=== PATIENT | male | born 1935 | race Caucasian/White ===

== ENCOUNTER → 2016-12-04 | Day surgery (SDC) | payer OTHER, MEDICARE ==
[2016-12-03 14:44] VITALS: Ht 180.3 cm; Wt 84.1 kg
[~2016-12-04] VITALS: Ht 180.3 cm; Wt 84.1 kg
[~2016-12-04] MED LIST: 500ML BSS 0.3ML EPI 1:1000PF IRRIG ONE; ACETAMINOPHEN 325 MG TAB PO PRN; AMVISC PLUS 0.8ML SYRINGE INT OCU ONE; ASPCH81X PO; ATROPINE SULFATE 0.1 MG/ML 5ML SYR IV PRN; BROM0.07 OPR; BSS FLUSH ONE; CLON0.5T20 PO; COEN1CAP7 PO; COL RITE PO; ENTA200T PO; EpHEDrine SULFATE INJ 50 MG/ML AMP IV PRN; EpINEphrine INJ 1MG/ML AMP 1 MG/ML AMP ONE; GABA1CAP PO; GABA400C PO; GATI1SOL2 OPR; LACTATED RINGER'S 1000ML 500 ML IV SCH; LIDOCAINE 3.5% OPH GEL PER APPLICATION CHARGE ONE; LIDOCAINE HCL 1% MPF 2 ML VIAL ONE; MELA1TAB22 PO; MELA3TAB7 PO; MIDAZOLAM HCL 1 MG/ML 2ML VIAL ONE; MULT-190 PO; OCUCOAT 1 ML SOLN IO ONE; POVIDONE-IODINE OP SOLN 30 ML BTL ONE; PRDFOPSD OPR; PROPARACAINE 0.5% OP SOLN PER DROP CHARGE OPR SCH; RIVA4.5C4 PO; TOBRAMYCIN/DEXAMETHASONE OPH OINT PER APPLN CHARGE ONE; [UNRECOGNIZED DRUG - CODE] PO
[2016-12-04] MEDS: PHENYLEPHRINE HCL 2.5% OP SOLN PER DROP CHARGE OPR SCH ×2 (09:40→09:45)
[2016-12-04] MEDS: TROPICAMIDE 1% OP SOLN PER DROP CHARGE OPR SCH ×2 (09:41→09:46)
[2016-12-04] MEDS: CYCLOPENTOLATE HCL 1% OP SOLN PER DROP CHARGE OPR SCH ×2 (09:42→09:47)
[2016-12-04] MEDS: KETOROLAC 0.5% OP SOLN PER DROP CHARGE OPR SCH ×2 (09:43→09:48)
[2016-12-04] MEDS: GATIFLOXACIN OP SOLN PER DROP CHARGE OPR SCH ×2 (09:44→09:50)
--- NOTE | 2016-12-04 10:03 | History & Physical Bridge - [place] ---
H&P Re-Evaluation Bridge Note: I have examined the patient, reviewed the History & Physical and in the interval since the performance of the History & Physical I have noted the following changes of clinical significance: Diagnosis: Right Cataract Procedure: Right Cataract Removal with Lens Implant No changes noted
[2016-12-04 10:44] VITALS: TEMP 36.5
--- NOTE | 2016-12-04 10:44 | Discharge Instructions-SurgCtr ---
Discharge Instructions Visit Reason for Visit: Cataract Right Eye Discharge Discharge Diagnosis / Problem: cataract Discharge Goals Goal(s): Improve function Activity Recommendations Activity Limitations: per Instructions/Follow-up section Anesthesia . Post Anesthesia Instructions: If you have had General Anesthesia or IV Sedation: * Do not drive today. * Resume driving when surgeon permits. * Do not make important decisions or sign legal documents today. * Call surgeon for: 1. Temperature elevations greater than 101 degrees F. 2. Uncontrollable pain. 3. Excessive bleeding. 4. Persistent nausea and vomiting. 5. Medication intolerance (nausea, vomiting or rash). * For nausea and vomiting use only clear liquids such as: tea, soda, bouillon until nausea subsides, then gradually increase diet as tolerated. * If you have any concerns or questions, call your surgeon's office. If physician is unavailable and it is an emergency, call 911 or go to the nearest emergency room. . Instructions / Follow-Up Instructions / Follow-Up ACTIVITY RECOMMENDATIONS: * No strenuous lifting, jogging or running for 4 days * No swimming or yard work for 1 week. * Limited bending is permitted, such as putting on shoes. RETURN TO SCHOOL/WORK: No work until seen by physician in office. MEDICATIONS: Resume previous medications unless instructed otherwise by your surgeon. This includes eye drops for glaucoma. Zymaxid/Gatifloxacin (krause cap) - one drop every 2 hours until bedtime Nevanac/Ilevro/Prolensa/Ketorolac (wallace cap) - one drop every 4 hours until bedtime Prednisolone (white/pink cap, SHAKE WELL) - one drop every 2 hours until bedtime Starting tomorrow - all 3 drops every 4 hours until seen in the office Optive drops - as needed for discomfort SPECIAL CARE INSTRUCTIONS: * Wear eyeshield when sleeping, for four nights. * You may wear your own glasses or sunglasses while awake. * You may read or watch TV * You may shower and wash your face, but be gentle around the eye and pat dry. * Blurry vision and mild irritation are normal. * Call office if pain is more severe or vision becomes dark at . FOLLOW UP VISIT: Follow-up with Dr Parry tomorrow. Diet Recommendations Home Diet: resume previous diet Procedures Procedures Performed: Right Cataract Phacoemulsification With Intraocular Lens Implant Pending Studies Studies pending at discharge: no Medical Emergencies . Who to Call and When: Medical Emergencies: If at any time you feel your situation is an emergency, please call 911 immediately. . Non-Emergent Contact Non-Emergency issues call your: [employer] . . "Provider Documentation" section prepared by Amor Parry.
--- NOTE | 2016-12-04 10:44 | [facility] Operative Report ---
Operative Report 1. PREOPERATIVE DIAGNOSIS: Cataract of the right eye. 2. POSTOPERATIVE DIAGNOSIS: Same. 3. PROCEDURE: Phacoemulsification with intraocular lens implantation of the right eye. SURGEON: Dr. Amor Parry. ANESTHESIA: Topical Lidocaine gel, 1% Non- Preserved intracameral Lidocaine, and monitored intravenous sedation. INDICATIONS FOR THE PROCEDURE: The patient is a 80 - year-old male with a history of cataract of the right eye causing significant visual impairment. The details of the proposed procedure were explained to the patient who asked appropriate questions and following discussion of all risks, benefits and alternatives agreed to have the procedure done. 4. OPERATION AND FINDINGS: DESCRIPTION OF PROCEDURE: After informed consent was obtained, the patient was brought to the Operating Room at the [facility]. The patient was placed in a supine position and then the right eye was prepped and draped in the usual sterile fashion for intraocular surgery. A drop of topical Lidocaine gel was placed in the operative eye. A wire lid speculum was then placed in the fornices. A corneal paracentesis was then created temporally. The Non-Preserved Lidocaine was then instilled into the anterior chamber. The anterior chamber was then pressurized with viscoelastic. A 2.0 mm clear corneal incision was then created temporally. A cystotome was inserted into the anterior chamber and used to create a tear in the anterior lens capsule. This capsular tear was then used to create a small flap and the flap was dragged in a counterclockwise direction in order to create a continuous curvilinear capsulorrhexis. Hydrodissection was accomplished with balanced salt solution. Phacoemulsification of the lens nucleus was then performed in a standard [id number] technique. The phaco time was 32 seconds with an average power of 14 %. The remaining cortical material was removed using irrigation aspiration. The capsular bag was then filled with viscoelastic. A [employer] Lomb MI60L +23.0 diopters lens was then loaded into the injector and injected into the capsular bag. The remaining viscoelastic was removed with the irrigation aspiration handpiece. The wound was hydrated and then checked and found to be watertight. The intraocular pressure was checked and found to be adequate. The wire lid speculum was removed and the patient's face was cleaned and dried. TobraDex ointment was placed in the inferior fornix. The patient was discharged to the Recovery Room having tolerated the procedure well. There were no complications. The patient will be seen tomorrow in the office for follow-up. I attest to the content of the Intraoperative Record and any orders documented therein. Any exceptions are noted below.
[2016-12-04 11:21] VITALS: BP 122/73; PULSE 84; O2SAT 98
--- NOTE | 2016-12-04 11:32 | Anesthesia Progress Nt - [facility] ---
Anesthesia Post Op Note Date & Time Dec 04, 2016 at 11:32 Vital Signs Pain Intensity: 0 Vital Signs Past 12 Hours Date Time Temp Pulse Resp B/P Pulse Ox O2 Delivery O2 Flow Rate FiO2 12/04/16 11:21 84 16 122/73 98 Room Air 12/04/16 10:44 36.5 69 16 134/78 99 Room Air 12/04/16 09:33 36.4 80 16 130/84 97 Room Air Notes Mental Status: alert / awake / arousable, participated in evaluation Pt Amnestic to Procedure: Yes Nausea / Vomiting: adequately controlled Pain: adequately controlled Airway Patency, RR, SpO2: stable & adequate BP & HR: stable & adequate Hydration State: stable & adequate Anesthetic Complications: no major complications apparent
== END | disposition home or self-care (01) ==
LOC: X.SURG 09:19
PROVIDERS: ATTEND Ophthalmology
DX: H26.9 Unspecified cataract (principal); G20 Parkinson's disease; H54.7 Unspecified visual loss; N40.1 Benign prostatic hyperplasia with lower urinary tract symptoms; R41.841 Cognitive communication deficit; G25.81 Restless legs syndrome; M15.9 Polyosteoarthritis, unspecified; E78.2 Mixed hyperlipidemia; M48.06 Spinal stenosis, lumbar region

== ENCOUNTER 2016-12-17 12:36 | Observation (INO) | payer OTHER, MEDICARE ==
[~2016-12-17] VITALS: Ht 180.3 cm; Wt 84.1 kg
[~2016-12-17 12:36] MED LIST changes: -500ML BSS 0.3ML EPI 1:1000PF IRRIG ONE; -ACETAMINOPHEN 325 MG TAB PO PRN; -AMVISC PLUS 0.8ML SYRINGE INT OCU ONE; -ATROPINE SULFATE 0.1 MG/ML 5ML SYR IV PRN; -BROM0.07 OPR; -BSS FLUSH ONE; -EpHEDrine SULFATE INJ 50 MG/ML AMP IV PRN; -EpINEphrine INJ 1MG/ML AMP 1 MG/ML AMP ONE; -GATI1SOL2 OPR; -LACTATED RINGER'S 1000ML 500 ML IV SCH; -LIDOCAINE 3.5% OPH GEL PER APPLICATION CHARGE ONE; -LIDOCAINE HCL 1% MPF 2 ML VIAL ONE; -MELA1TAB22 PO; -MIDAZOLAM HCL 1 MG/ML 2ML VIAL ONE; -OCUCOAT 1 ML SOLN IO ONE; -POVIDONE-IODINE OP SOLN 30 ML BTL ONE; -PRDFOPSD OPR; -PROPARACAINE 0.5% OP SOLN PER DROP CHARGE OPR SCH; -TOBRAMYCIN/DEXAMETHASONE OPH OINT PER APPLN CHARGE ONE
[2016-12-17] MEDS ORDERED: PRDFOPSD OPR (13:58)
[2016-12-17] MEDS ORDERED: BROM0.07 OPR (13:58)
[2016-12-17] MEDS ORDERED: GATI1SOL2 OPR (13:58)
[2016-12-17] MEDS ORDERED: MELA1TAB22 PO (13:58)
[2016-12-17] MEDS ORDERED: SODIUM CHLORIDE 0.9% 500ML 500 ML IV STA (14:04)
--- NOTE | 2016-12-17 14:15 | EMERGENCY ROOM VISIT NOTE ---
History Report prepared by Kyle: Lay Mendez Under the Supervision of: Dr. Emmanuel Sims M.D. First contact with patient: 13:28 Chief Complaint: OTHER COMPLAINT Stated Complaint: MUSCLE FREEZE History of Present Illness The patient is a 80 year old male who presents to the Emergency Room with complaints of worsening weakness over the past 2 days. The patient has a history of Parkinson's Disease. He is on Carbidopa and Levodopa. states that typically the patient is able to ambulate well with a walker and is able to drive. Two days ago the patient fell while he was going to the bathroom in the middle of the night. He denies any injury from the fall. Yesterday the patient fell again and denies any injury from that fall as well. The patient states that his muscles have been locking up more over the past 2 days. Both he and his describe his symptoms as "muscle freezing." Today the patient was unable to use is walker and had to use a wheelchair. reports that he is slower to respond and his speech is slower today. The patient denies hitting his head or LOC, recent illness, and shortness of breath. He had a routine visit with his PCP this morning who advised the patient to come to the ED for further evaluation. Source of History: patient, spouse/significant other Onset: 2 days ago Position: other (global) Quality: other (weakness) Timing: worsening Modifying Factors (Worsening): other (walking) Associated Symptoms: No LOC, No SOB Review of Systems See HPI for pertinent positives & negatives. A total of 10 systems reviewed and were otherwise negative. Past Medical & Surgical Medical Problems: (1) Back pain (2) Constipation (3) Hyperlipidemia (4) Lumbago (5) Neurologic gait dysfunction (6) Parkinson disease (7) Parkinson's disease Family History Non-pertinent due to advanced age. Social History Smoking Status: Never Smoker Marital Status: Housing Status: lives with significant other Occupation Status: employed Current/Historical Medications Scheduled Aspirin (Aspirin Chewable), 81 MG PO QPM Bromfenac Sodium (Ophth) (Prolensa), 1 DROP OPR DAILY Carbidopa (Lodosyn), 1 TAB PO QID Clonazepam (Clonazepam Odt), 3 TAB PO QPM Coenzyme Q10 (Ubidecarenone) (Coq10), 1 CAP PO QPM Entacapone (Comtan), 200 MG PO QID Gabapentin (Neurontin), 100 MG PO QPM Gabapentin (Neurontin), 400 MG PO QPM Gatifloxacin (Ophth) (Gatifloxacin), 1 DROP OPR BID Melatonin-Pyridoxine (Melatonin), 1 TAB PO DAILY Ocuvite Preservision (Ocuvite Preservision), 1 TAB PO QPM Prednisolone Acetate (Prednisolone Acetate), 1 DROP OPR QID Rivastigmine Tartrate (Rivastigmine Tartrate), 1 CAP PO BID [Col'rite], 3 TAB PO QPM Allergies Coded Allergies: No Known Allergies (Verified , 12/17/16) Physical Exam Vital Signs Date Time Temp Pulse Resp B/P Pulse Ox O2 Delivery O2 Flow Rate FiO2 12/17/16 17:25 77 18 156/89 97 Room Air 12/17/16 15:03 73 16 116/68 94 Room Air 12/17/16 14:12 81 12/17/16 14:07 83 20 128/84 95 Room Air 12/17/16 14:05 95 Room Air 12/17/16 12:43 36.4 84 18 149/73 96 Room Air Physical Exam GENERAL: Patient is a healthy-appearing well-nourished 80 year old female. HEAD: Normocephalic atraumatic EYES: Ocular movements intact pupils equal and react to light OROPHARYNX mucous membranes are moist no exudates present no erythema or edema present NECK: Supple no nuchal rigidity CHEST: Good equal expansion LUNGS: Clear and equal to auscultation CARDIAC: Normal S1 and S2 ABDOMEN: Soft nontender no guarding BACK: No CVA tenderness EXTREMITIES: No pain upon palpation normal muscle strength in all groups no clubbing cyanosis or edema NEURO: Patient is following commands is answering questions appropriately. Alert and oriented x3 Cranial Nerves 2-12 grossly intact. Slow to respond and slow to initiate movement. Medical Decision & Procedures ER Provider Diagnostic Interpretation: Radiology results as stated below per my review and radiologist interpretation: CT HEAD WITHOUT CONTRAST (CT) CLINICAL HISTORY: Stroke COMPARISON STUDY: MRI the brain dated 01/20/2016, CT scan the head dated 03/18/2009 TECHNIQUE: Axial CT of the brain is performed from the vertex to the skull base. IV contrast was not administered for this examination. CT DOSE: 926.94 mGycm FINDINGS: No intra or extra-axial mass lesions are visualized. There is a hyperdense focus in the region the right sylvian fissure. Given the history of stroke this could represent a focal thrombus. An MRI is recommended in follow-up. There is no CT evidence of midline shift. There is no evidence of parenchymal hemorrhage. There are patchy white matter hypodensities likely on a small vessel basis. There is no evidence of pathologic ventricular dilatation. There is no evidence of acute sinusitis IMPRESSION: Small focus of increased density in the right sylvian fissure. Given the clinical history this could reflect a small focal thrombus. An MRI the brain is recommended in follow-up. Electronically signed by: Stephen Akhtar M.D. 12/17/2016 3:39 PM Dictated Date/Time: 12/17/2016 3:36 PM CHEST ONE VIEW PORTABLE CLINICAL HISTORY: Stroke. COMPARISON STUDY: Chest radiograph June 29, 2016. FINDINGS: Right shoulder arthroplasty is incidentally noted. There is no pneumothorax or pleural effusion. There is no consolidation. There may be minimal left basilar opacity. Cardiac size is at upper limits of normal. There is no evidence of pulmonary edema. IMPRESSION: No acute cardiopulmonary findings. Electronically signed by: Kel Blanchard M.D. 12/17/2016 2:30 PM Dictated Date/Time: 12/17/2016 2:29 PM Laboratory Results 12/17/16 14:10 Red Blood Count 4.88, Mean Corpuscular Volume 88.1, Mean Corpuscular Hemoglobin 30.7, Mean Corpuscular Hemoglobin Concent 34.9, Mean Platelet Volume 9.9, Neutrophils (%) (Auto) 71.4, Lymphocytes (%) (Auto) 17.5, Monocytes (%) (Auto) 7.5, Eosinophils (%) (Auto) 3.1, Basophils (%) (Auto) 0.5, Neutrophils # (Auto) 4.57, Lymphocytes # (Auto) 1.12, Monocytes # (Auto) 0.48, Eosinophils # (Auto) 0.20, Basophils # (Auto) 0.03 Test 12/17/16 14:02 12/17/16 14:10 12/17/16 16:43 12/17/16 17:18 Bedside Glucose 104 mg/dl (70-99) White Blood Count 6.40 K/uL (4.8-10.8) Red Blood Count 4.88 M/uL (4.7-6.1) Hemoglobin 15.0 g/dL (14.0-18.0) Hematocrit 43.0 % (42-52) Mean Corpuscular Volume 88.1 fL (80-100) Mean Corpuscular Hemoglobin 30.7 pg (25-34) Mean Corpuscular Hemoglobin Concent 34.9 g/dl (32-36) Platelet Count 206 K/uL (130-400) Mean Platelet Volume 9.9 fL (7.4-10.4) Neutrophils (%) (Auto) 71.4 % Lymphocytes (%) (Auto) 17.5 % Monocytes (%) (Auto) 7.5 % Eosinophils (%) (Auto) 3.1 % Basophils (%) (Auto) 0.5 % Neutrophils # (Auto) 4.57 K/uL (1.4-6.5) Lymphocytes # (Auto) 1.12 K/uL (1.2-3.4) Monocytes # (Auto) 0.48 K/uL (0.11-0.59) Eosinophils # (Auto) 0.20 K/uL (0-0.5) Basophils # (Auto) 0.03 K/uL (0-0.2) RDW Standard Deviation 42.0 fL (36.4-46.3) RDW Coefficient of Variation 13.0 % (11.5-14.5) Immature Granulocyte % (Auto) 0.0 % Immature Granulocyte # (Auto) 0.00 K/uL (0.00-0.02) Bedside Prothrombin Time INR 1.0 (0.9-1.1) Est Creatinine Clear Calc Drug Dose 69.3 ml/min Total Creatine Kinase 114 U/L (39-308) Creatine Kinase MB 3.3 ng/ml (0.5-3.6) Creatine Kinase MB Ratio 2.9 (0-3.0) Troponin I < 0.015 ng/ml (0-0.045) Labs reviewed by ED physician. Medications Administered Medications (Trade) Dose Ordered Sig/Holli Route Start Time Stop Time Status Last Admin Dose Admin Sodium Chloride 1,000 ml @ 50 mls/hr Q20H IV 12/17/16 13:47 01/16/17 13:46 12/17/16 15:02 50 MLS/HR Sodium Chloride (Nss 500ml) 500 ml @ 999 mls/hr Q31M STAT IV 12/17/16 14:04 12/17/16 14:34 DC 12/17/16 14:33 999 MLS/HR ECG Indication: weakness Rate (beats per minute): 79 Rhythm: normal sinus Findings: no acute ischemic change, no ectopy ED Course 1328: Past medical records reviewed. The patient was evaluated in room B7. A complete history and physical examination was performed. 1347: NSS 1000 ml @ 50 mls/hr IV 1404: NSS 500 ml @ 999 mls/hr IV 1540: I spoke with Dr. Baca. We discussed the patient's results and treatment plan. The patient will be evaluated by the [facility] for further management. 1547: I reassessed the patient at this time. He is resting comfortably. I discussed the results and treatment plan with the patient and his . I answered all pertaining questions that they had. They expressed understanding and verbalized agreement. Medical Decision Differential diagnosis: Etiologies such as metabolic, infection, hypo/hyperglycemia, electrolyte abnormalities, cardiac sources, intracerebral event, toxicologic, neurologic, as well as others were entertained. His is a 80-year-old male who presents emergency Department with multiple falls since Saturday. In addition the patient has had locking episodes with his muscles. The patient does have an abnormal finding on his CAT scan of his head for he was sent for an MRI. I did discuss the case with the hospitalist services I feel the patient will be unsafe to go home. Patient and family were in agreement with the treatment plan. Consults Time Called: 1538 Consulting Physician: Dr. Baca Returned Call: [address] Baca. We discussed the patient's results and treatment plan. The patient will be evaluated by the [facility] for further management. Impression Primary Impression: Falls Additional Impression: Altered mental status Scribe Attestation The scribe's documentation has been prepared under my direction and personally reviewed by me in its entirety. I confirm that the note above accurately reflects all work, treatment, procedures, and medical decision making performed by me. Departure Information Dispostion Being Evaluated By Hospitalist Referrals Harman Gunn M.D. (PCP) Patient Instructions My [facility] Problem Qualifiers Primary Impression: Falls Encounter type: initial encounter Qualified Codes: W19.XXXA - Unspecified fall, initial encounter Additional Impression: Altered mental status Altered mental status type: unspecified Qualified Codes: R41.82 - Altered mental status, unspecified
[2016-12-17 14:32] LABS: BASO % 0.5 %; BASO ABS # 0.03 K/uL (0-0.2); COMPLETE YES; EOS % 3.1 %; LYMPH % 17.5 %; LYMPH ABS # 1.12 K/uL (1.2-3.4); MEAN CELL VOLUME 88.1 fL (80-100); MEAN CORPUSCULAR HEMOGLOBIN 30.7 pg (25-34); MEAN CORPUSCULAR HGB CONC 34.9 g/dl (32-36); MEAN PLATELET VOLUME 9.9 fL (7.4-10.4); MONO % 7.5 %; NEUT % 71.4 %; PLATELET COUNT 206 K/uL (130-400); RED BLOOD COUNT 4.88 M/uL (4.7-6.1)
--- NOTE | 2016-12-17 14:32 | DIAGNOSTIC IMAGING REPORT ---
CHEST ONE VIEW PORTABLE CLINICAL HISTORY: Stroke. COMPARISON STUDY: Chest radiograph June 29, 2016. FINDINGS: Right shoulder arthroplasty is incidentally noted. There is no pneumothorax or pleural effusion. There is no consolidation. There may be minimal left basilar opacity. Cardiac size is at upper limits of normal. There is no evidence of pulmonary edema. IMPRESSION: No acute cardiopulmonary findings. Electronically signed by: Kel Blanchard M.D. 12/17/2016 2:30 PM Dictated Date/Time: 12/17/2016 2:29 PM
[2016-12-17 14:51] LABS: BLOOD UREA NITROGEN 23 mg/dl (7-18); BUN/CREATININE RATIO 24.7 (10-20); CALCIUM 8.7 mg/dl (8.5-10.1); CARBON DIOXIDE 27 mmol/L (21-32); CHLORIDE 105 mmol/L (98-107); CREATININE 0.92 mg/dl (0.60-1.40); GLUCOSE 98 mg/dl (70-99); POTASSIUM 3.9 mmol/L (3.5-5.1); SODIUM 141 mmol/L (136-145)
[2016-12-17 14:56] LABS: CKMB/CK RATIO 2.9 (0-3.0)
[2016-12-17] MEDS: SODIUM CHLORIDE 0.9% 1000ML 1,000 ML IV SCH (15:02)
--- NOTE | 2016-12-17 15:40 | DIAGNOSTIC IMAGING REPORT ---
CT HEAD WITHOUT CONTRAST (CT) CLINICAL HISTORY: Stroke COMPARISON STUDY: MRI the brain dated 01/20/2016, CT scan the head dated 03/18/2009 TECHNIQUE: Axial CT of the brain is performed from the vertex to the skull base. IV contrast was not administered for this examination. CT DOSE: 926.94 mGycm FINDINGS: No intra or extra-axial mass lesions are visualized. There is a hyperdense focus in the region the right sylvian fissure. Given the history of stroke this could represent a focal thrombus. An MRI is recommended in follow-up. There is no CT evidence of midline shift. There is no evidence of parenchymal hemorrhage. There are patchy white matter hypodensities likely on a small vessel basis. There is no evidence of pathologic ventricular dilatation. There is no evidence of acute sinusitis IMPRESSION: Small focus of increased density in the right sylvian fissure. Given the clinical history this could reflect a small focal thrombus. An MRI the brain is recommended in follow-up. Electronically signed by: Stephen Akhtar M.D. 12/17/2016 3:39 PM Dictated Date/Time: 12/17/2016 3:36 PM
[2016-12-17] MEDS ORDERED: ONDANSETRON INJ 2 MG/ML 2 ML VIAL IV PRN (16:45)
[2016-12-17] MEDS ORDERED: ACETAMINOPHEN 325 MG TAB PO PRN (16:45)
[2016-12-17 17:25] VITALS: O2SAT 97
[2016-12-17 17:32] LABS: URINE APPEARANCE CLEAR (CLEAR); URINE BILIRUBIN NEG (NEG); URINE COLOR YELLOW; URINE NITRITE NEG (NEG); UROBILINOGEN NEG (NEG); ZZUR CULT IF INDIC CLEAN CATCH NO
[2016-12-17 17:39] VITALS: Ht 180.3 cm; Wt 84.1 kg
[2016-12-17 17:42] LABS: MANUAL MICROSCOPIC REQUIRED? NO; REVIEW REQ? NO
[2016-12-17 18:10] LABS: BENZODIAZEPINE, URINE NEG (NEG); COCAINE,URINE NEG (NEG); PHENCYCLIDINE, URINE NEG (NEG)
--- NOTE | 2016-12-17 18:34 | HISTORY & PHYSICAL EXAMINATION ---
DATE OF ADMISSION: 12/17/2016 PRIMARY CARE PHYSICIAN: Dr. Harman Gunn. CHIEF COMPLAINT: Recurrent falls. HISTORY OF PRESENT ILLNESS: Mr. Miguel is a 80-year-old gentleman with a history of Parkinson disease who presents to the Emergency Department complaining of recurrent falls over the past several days. He states that several days ago in the middle of the night, he woke up to use the bathroom. On his way back to his bedroom, he says that he fell flat on his face. He reports that his legs just gave out. They felt like they were locking up or very heavy. He reports that he had to crawl back to his bedroom. With the assistance of his was able to get back into bed. He says that the following day, he stayed home from [facility] because he was feeling very tired. Later in the day while walking to a movie, he again fell flat on his face, says that he felt as if his muscles all locked up. He said he felt generally weak and fell to the ground. He denies any recent fever, chills or malaise. He denies any cough, shortness of breath or chest pain. He denies any abdominal pain, nausea, vomiting or diarrhea. He denies any urinary frequency, dysuria or hematuria. He denies any lower extremity swelling. He denies any swollen or painful joints and he denies any new rash. His initial workup in the Emergency Department included basic labs with chemistry showing a sodium of 141, potassium 3.9, chloride 105, bicarbonate 27, BUN 23, creatinine 0.92, random glucose was 104, calcium was 8.7. He did have cardiac enzymes drawn, troponin was negative. CPK was 114, CK-MB was 3.3. His CBC showed a white blood cell count of 6400 with 71% neutrophils. His hemoglobin was 15, hematocrit 43%, platelets 206,000. His INR was within normal limits. He also had a chest x-ray which is being read by radiology as showing no acute cardiopulmonary process. A CT of the head without contrast was also performed which shows chronic small vessel ischemic changes. The radiologist however also notes the small focus of increased density in the area of the right sylvian fissure. The radiologist is noting that this could reflect a small focal thrombus and recommended an MRI of the brain. He did have an EKG as well. This shows sinus rhythm with a rate of 80 beats per minute. There is some nonspecific flattening of his T waves throughout. Otherwise, there are no obvious ST segment changes to suggest acute ischemia. At this point, the patient has been ordered an MRI of the brain which is currently pending. He is being admitted for further management and workup. ALLERGIES: None. HOME MEDICATIONS: Include: 1. Aspirin 81 mg p.o. daily. 2. Carbidopa 25 mg p.o. 4 times daily. 3. Comtan 200 mg p.o. 4 times daily. 4. Rivastigmine 4.5 mg p.o. twice daily. 5. Clonazepam 1.5 mg p.o. q.p.m. 6. Coenzyme Q10. 7. Gabapentin 500 mg p.o. at bedtime. 8. Melatonin with pyridoxine. 9. Multivitamin. 10. Col-Rite. 11. Prednisolone acetate ophthalmic drops. 12. Bromfenac ophthalmic drops. 13. Gatifloxacin ophthalmic drops. PAST MEDICAL HISTORY: Includes: 1. Parkinson disease. 2. Dyslipidemia. 3. 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 4. Status post right eye cataract removal on 12/04/2016. FAMILY HISTORY: Positive for "a weak heart" in one of his sisters in her 80s. He mentions that 2 sisters and 1 brother, all have balance problems. No other known history of neurodegenerative disease, stroke, or cardiovascular disease. SOCIAL HISTORY: The patient lives at home with his in a [place]. He is a retired psychologist. He is a lifelong nonsmoker and does not abuse alcohol or illicit drugs. REVIEW OF SYSTEMS: A 14-system review was conducted and was found to be completely negative except as otherwise indicated above in the history of present illness. PHYSICAL EXAMINATION: VITAL SIGNS: Currently show temperature is 36.4, pulse 73, respiratory rate 16, oxygen saturation 94% on room air. Blood pressure is 116/68. GENERAL: The patient is awake and alert. He is in no acute distress. HEENT: The sclerae are nonicteric. The mucous membranes are tacky. NECK: The trachea is midline. There is no JVD. RESPIRATORY: Breath sounds are mildly diminished in the bases but above that are clear. He is not in any respiratory distress. CARDIOVASCULAR: S1 and S2 are heard with a regular rate and rhythm. There is no murmur, rub, or gallop. ABDOMEN: Soft, nontender, nondistended. Bowel sounds are present. EXTREMITIES: Warm and well perfused without edema. SKIN: Warm and dry. There is no cyanosis or rash. MUSCULOSKELETAL: There is no chest wall tenderness. There is no joint effusion or joint tenderness. NEUROLOGIC: The patient is awake and alert. Cranial nerves are grossly intact. His speech is somewhat slow but is clear and fluent. There is 5/5 muscle strength in all groups in the bilateral upper and lower extremities. Muscle tone and bulk appear to be normal. PSYCH: The patient is calm and cooperative. DIAGNOSTIC INVESTIGATIONS: Labs, imaging and EKG were reviewed as outlined above in the history of present illness. ASSESSMENT AND PLAN: 1. Gait dysfunction. This patient is presenting with recurrent falls, likely related to Parkinson disease. I will ask neurology to evaluate the patient regarding adjusting his Parkinson's medications at this time. He does not have any focal deficit on exam to suggest a stroke. I doubt the CT findings of a hyperdensity in the right sylvian fissure are clinically significant at this time. We will await MRI results however. 2. Recent cataract surgery. We will continue patient's usual home eyedrops for the time being. 3. Deep venous thrombosis prophylaxis with Lovenox. 4. Disposition: Admit to observation on the general medical/surgical floor. Total time spent preparing this history and physical is 45 minutes. [facility]
[2016-12-17 18:50] VITALS: BP 142/89; PULSE 76; TEMP 36.3; O2SAT 99
--- NOTE | 2016-12-17 19:19 | DIAGNOSTIC IMAGING REPORT ---
Brain MRI WITHOUT CONTRAST HISTORY: Loss of balance. Pt falling. Abnormal head CT. TECHNIQUE: Multiplanar multisequence MRI of the brain was performed without the use of contrast. COMPARISON STUDY: Head CT 12/07/2016. FINDINGS: Question a single punctate focus of restricted diffusion within the right parietal lobe on image 16. This could be artifact or due to a punctate infarct. This does not clearly represent a loss of signal on the ADC map. However, this could be due to its small size. The midline structures are intact. The ventricles and sulci demonstrate moderate to severe atrophic changes. There is mild microvascular ischemic change. There is no mass, hematoma, midline shift. IMPRESSION: 1. Questionable single punctate focus of restricted diffusion within the right parietal lobe. This could be due to a tiny infarct versus artifact. 2. Otherwise, no acute intracranial abnormality. 3. Atrophy and microvascular ischemic changes are again noted. Electronically signed by: David Day M.D. 12/17/2016 7:17 PM Dictated Date/Time: 12/17/2016 7:10 PM
[2016-12-17] MEDS: ENTACAPONE 200 MG TAB PO SCH (19:51)
[2016-12-17] MEDS: CARBIDOPA/LEVODOPA 25/100MG TAB PO SCH (19:52)
[2016-12-17 19:56] LABS: BUN/CREATININE RATIO 17.9 (10-20); CALCIUM 8.5 mg/dl (8.5-10.1); CREATININE 1.1 mg/dl (0.60-1.40); POTASSIUM 3.7 mmol/L (3.5-5.1)
[2016-12-17] MEDS ORDERED: GATIFLOXACIN 0.5% OP SOLN 2.5 ML BTL OPR SCH (20:00)
[2016-12-17] MEDS: PrednisoLONE ACET 1% OP SUSP 5 ML BTL OPR SCH ×2 (20:34→22:20)
[2016-12-17] MEDS ORDERED: IV FLUIDS COMPLETED PRN (20:45)
[2016-12-17] MEDS ORDERED: CEROVITE ADV FORMULA TAB PO SCH (21:00)
[2016-12-17] MEDS ORDERED: ASPIRIN 81 MG ECTAB PO SCH (21:00)
[2016-12-17] MEDS ORDERED: CLONAZEPAM 0.5 MG TAB PO SCH (21:00)
[2016-12-17] MEDS ORDERED: ENOXAPARIN 40 MG/0.4 ML SYR SQ SCH (21:00)
[2016-12-17] MEDS ORDERED: GABAPENTIN 400 MG CAP PO SCH (21:00)
[2016-12-17] MEDS ORDERED: GABAPENTIN 100 MG CAP PO SCH (21:00)
[2016-12-17] MEDS ORDERED: DOCUSATE SODIUM 100 MG CAP PO SCH (21:00)
[2016-12-17] MEDS ORDERED: NON-FORMULARY MEDICATION (Coenzyme Q10 (Ubidecarenone) (Coq10) 1 CAP) PO SCH (21:00)
[2016-12-18 00:12] VITALS: BP 154/95; PULSE 76; TEMP 36.6; O2SAT 95
[2016-12-18 07:22] LABS: BASO % 0.6 %; BASO ABS # 0.03 K/uL (0-0.2); COMPLETE YES; EOS % 4.7 %; IG% 0.2 %; LYMPH % 17.4 %; LYMPH ABS # 0.93 K/uL (1.2-3.4); MEAN CELL VOLUME 89.5 fL (80-100); MEAN CORPUSCULAR HEMOGLOBIN 30.8 pg (25-34); MEAN CORPUSCULAR HGB CONC 34.4 g/dl (32-36); MEAN PLATELET VOLUME 10.1 fL (7.4-10.4); MONO % 9.6 %; NEUT % 67.5 %; PLATELET COUNT 183 K/uL (130-400); RED BLOOD COUNT 4.58 M/uL (4.7-6.1); WHITE BLOOD COUNT 5.34 K/uL (4.8-10.8)
[2016-12-18 07:30] VITALS: BP 138/92; PULSE 71; TEMP 36.4; O2SAT 96
[2016-12-18 07:47] LABS: BUN/CREATININE RATIO 20.2 (10-20); CALCIUM 8.5 mg/dl (8.5-10.1); CREATININE 0.98 mg/dl (0.60-1.40); POTASSIUM 3.8 mmol/L (3.5-5.1)
[2016-12-18] MEDS: CARBIDOPA/LEVODOPA 25/100MG TAB PO SCH ×3 (07:49→18:58)
[2016-12-18] MEDS: ENTACAPONE 200 MG TAB PO SCH ×3 (07:49→18:58)
[2016-12-18] MEDS: PrednisoLONE ACET 1% OP SUSP 5 ML BTL OPR SCH ×2 (07:49→13:04)
[2016-12-18] MEDS ORDERED: NON-FORMULARY MEDICATION (Melatonin-Pyridoxine (Melatonin) 1 TAB) PO SCH (08:00)
[2016-12-18] MEDS: SODIUM CHLORIDE 0.9% 1000ML 1,000 ML IV SCH (09:38)
[2016-12-18 10:06] VITALS: BP 114/77
[2016-12-18] MEDS ORDERED: PrednisoLONE ACET 1% OP SUSP 5 ML BTL OPR SCH (14:00)
--- NOTE | 2016-12-18 14:11 | Neurology Consultation ---
Neurology Consultation Date of Consultation: Dec 18, 2016. Attending Physician: Emmanuel Baca MD Primary Care Physician: Harman Gunn M.D. Reason for Consultation: gait dysfunction plz adjust Parkinson's medications History of Present Illness Andres is a 80 year old male who has a H Parkinson's and presents to be evaluated after several falls. He had several days ago in the middle of the night, he woke up to use the bathroom and fell flat on his face. His is in the room and states he has been getting progressively worse and his using a walker most of the time. He had back surgery and wears a brace on his left foot due to foot drop. He and his were watching a movie the next day and he got up and fell flat on his face. He feels like his legs are just giving out. He has been on the combination of Carbidopa and Comtan for about a year. For about the last 2 months he has been having progressive problems with his walking. He denies CP, SOB, CP, bowel or bladder issues, swallowing issues, ones sided weakness, numbness or tingling, no dizziness, diaphoretic, LOC, head injury + freezing and difficulty rolling in bed. Past Medical/Surgical History Medical Problems: (1) Altered mental status Status: Acute (2) Falls Status: Acute Social History Marital Status: Housing Status: lives with significant other Occupation Status: employed Allergies Coded Allergies: No Known Allergies (Verified , 12/17/16) Current Inpatient Medications Current Inpatient Medications Medications (Trade) Dose Ordered Sig/Holli Route Start Time Stop Time Status Last Admin Dose Admin Enoxaparin Sodium (Lovenox Inj) 40 mg Q24H SQ 12/17/16 21:00 01/16/17 20:59 12/17/16 20:37 40 MG Acetaminophen (Tylenol Tab) 650 mg Q4H PRN PO 12/17/16 16:45 01/16/17 16:44 Ondansetron HCl (Zofran Inj) 4 mg Q6H PRN IV 12/17/16 16:45 01/16/17 16:44 Aspirin (Ecotrin Tab) 81 mg QPM PO 12/17/16 21:00 01/16/17 20:59 12/17/16 20:35 81 MG Gabapentin (Neurontin Cap) 100 mg QPM PO 12/17/16 21:00 01/16/17 20:59 12/17/16 20:39 100 MG Gabapentin (Neurontin Cap) 400 mg QPM PO 12/17/16 21:00 01/16/17 20:59 12/17/16 20:36 400 MG Multivitamins/ Minerals (Multivitamin W/ Minerals Tab) 1 tab QPM PO 12/17/16 21:00 01/16/17 20:59 12/17/16 20:35 1 TAB Carbidopa/Levodopa (Sinemet 25/ 100MG Tab) 1 tab QID PO 12/17/16 20:00 01/16/17 20:59 12/18/16 12:02 1 TAB Clonazepam (Klonopin Tab) 1.5 mg QPM PO 12/17/16 21:00 01/16/17 20:59 12/17/16 20:39 1.5 MG Entacapone (Comtan) 200 mg QID PO 12/17/16 20:00 01/16/17 20:59 12/18/16 12:02 200 MG Miscellaneous Information (Order Awaiting Action) 1 ea QS N/A 12/18/16 00:00 01/17/17 00:00 Docusate Sodium (coLACE CAP) 300 mg QPM PO 12/17/16 21:00 01/16/17 20:59 12/17/16 20:35 300 MG Miscellaneous Information (Order Awaiting Action) 1 ea QS N/A 12/18/16 00:00 01/17/17 00:00 Miscellaneous (Iv Fluids Completed) 1 ea PRN PRN N/A 12/17/16 20:45 12/17/17 20:44 Prednisolone Acetate (Pred Forte 1% Oph Susp) 1 drops TID OPR 12/18/16 14:00 01/17/17 13:59 Physical Exam Vital Signs (Past 24 Hrs): Date Time Temp Pulse Resp B/P Pulse Ox O2 Delivery O2 Flow Rate FiO2 12/18/16 10:06 114/77 12/18/16 08:00 Room Air 12/18/16 07:30 36.4 71 20 138/92 96 12/18/16 00:12 36.6 76 18 154/95 95 Room Air 12/18/16 00:00 Room Air 12/17/16 18:50 36.3 76 16 142/89 99 Room Air 12/17/16 17:39 Room Air 12/17/16 17:25 77 18 142/89 97 Room Air 12/17/16 15:03 73 16 116/68 94 Room Air 12/17/16 14:12 81 12/17/16 14:07 83 20 128/84 95 Room Air 12/17/16 14:05 95 Room Air Physical Exam: Constitutional:appearance nourished, healthy, decreased blink frequency and mask facies Ears, Nose, Mouth and Throat: mucous membranes moist, no injection and skin normal, eyes normal Cardiovascular: normal S-1 and S-2 and regular rate and rhythm Respiratory: clear to auscultation (CTA) and no rales, rhonchi or wheeze Musculoskeletal: no peripheral edema and good distal pulses Skin: no stigmata of neurocutaneous disease noted and normal and intact Eyes: extraocular muscles intact (EOMI) and pupils equal, round and reactive to light (PERRL) NEUROLOGIC EXAMINATION: Mental status: Alert and interactive Oriented to full date and location Oriented to person Speech fluent with no evidence of aphasia Cranial Nerves smile slightly a symmetric ( states is chronic), eye brow raise symmetric, tongue midline Reflexes: Deep tendon reflexes were symmetrical and graded 2/5. Plantar responses were neutral Sensory: decreased sensation to vibration bilaterally GT, GT proprioception intact bialterally, cool touch intact Coordination: finger to nose without bi pass, no resting tremor or essential tremor no cog wheeling Gait/Stance: sleeping when entering the room, wakes easily Motor: Negative for pronator drift of out stretched arms with eyes closed. 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, hip flex patellar flex ext 5/5 bilaterally plantar flex ext R 5/5 , L 4/5 Laboratory Results Past 24 Hours: 12/18/16 06:59 Red Blood Count 4.58, Mean Corpuscular Volume 89.5, Mean Corpuscular Hemoglobin 30.8, Mean Corpuscular Hemoglobin Concent 34.4, Mean Platelet Volume 10.1, Neutrophils (%) (Auto) 67.5, Lymphocytes (%) (Auto) 17.4, Monocytes (%) (Auto) 9.6, Eosinophils (%) (Auto) 4.7, Basophils (%) (Auto) 0.6, Neutrophils # (Auto) 3.61, Lymphocytes # (Auto) 0.93, Monocytes # (Auto) 0.51, Eosinophils # (Auto) 0.25, Basophils # (Auto) 0.03 12/18/16 06:59 Test 12/17/16 14:02 12/17/16 14:10 12/17/16 17:18 12/18/16 06:59 Bedside Glucose 104 mg/dl (70-99) Bedside Prothrombin Time INR 1.0 (0.9-1.1) Total Creatine Kinase 114 U/L (39-308) Creatine Kinase MB 3.3 ng/ml (0.5-3.6) Creatine Kinase MB Ratio 2.9 (0-3.0) Troponin I < 0.015 ng/ml (0-0.045) Urine Color YELLOW Urine Appearance CLEAR (CLEAR) Urine pH 7.0 (4.5-7.5) Urine Specific [place] 1.010 (1.000-1.030) Urine Protein NEG (NEG) Urine Glucose (UA) NEG (NEG) Urine Ketones NEG (NEG) Urine Occult Blood NEG (NEG) Urine Nitrite NEG (NEG) Urine Bilirubin NEG (NEG) Urine Urobilinogen NEG (NEG) Urine Leukocyte Esterase NEG (NEG) Urine Opiates Screen NEG (NEG) Urine Methadone, Qualitative NEG (NEG) Urine Barbiturates NEG (NEG) Urine Phencyclidine (PCP) Level NEG (NEG) Ur Amphetamine/Methamphetamine NEG (NEG) MDMA (Ecstasy) Screen NEG (NEG) Urine Benzodiazepines Screen NEG (NEG) Urine Cocaine Metabolite NEG (NEG) Urine Marijuana (THC) NEG (NEG) White Blood Count 5.34 K/uL (4.8-10.8) Red Blood Count 4.58 M/uL (4.7-6.1) Hemoglobin 14.1 g/dL (14.0-18.0) Hematocrit 41.0 % (42-52) Mean Corpuscular Volume 89.5 fL (80-100) Mean Corpuscular Hemoglobin 30.8 pg (25-34) Mean Corpuscular Hemoglobin Concent 34.4 g/dl (32-36) Platelet Count 183 K/uL (130-400) Mean Platelet Volume 10.1 fL (7.4-10.4) Neutrophils (%) (Auto) 67.5 % Lymphocytes (%) (Auto) 17.4 % Monocytes (%) (Auto) 9.6 % Eosinophils (%) (Auto) 4.7 % Basophils (%) (Auto) 0.6 % Neutrophils # (Auto) 3.61 K/uL (1.4-6.5) Lymphocytes # (Auto) 0.93 K/uL (1.2-3.4) Monocytes # (Auto) 0.51 K/uL (0.11-0.59) Eosinophils # (Auto) 0.25 K/uL (0-0.5) Basophils # (Auto) 0.03 K/uL (0-0.2) RDW Standard Deviation 42.7 fL (36.4-46.3) RDW Coefficient of Variation 13.1 % (11.5-14.5) Immature Granulocyte % (Auto) 0.2 % Immature Granulocyte # (Auto) 0.01 K/uL (0.00-0.02) Anion Gap 8.0 mmol/L (3-11) Est Creatinine Clear Calc Drug Dose 65.1 ml/min Estimated GFR () 84.6 Estimated GFR (Non- 73.0 BUN/Creatinine Ratio 20.2 (10-20) Calcium Level 8.5 mg/dl (8.5-10.1) Imaging CT head- : Small focus of increased density in the right sylvian fissure. Given the clinical history this could reflect a small focal thrombus. An MRI the brain is recommended in follow-up. MRI brain without -. Questionable single punctate focus of restricted diffusion within the right parietal lobe. This could be due to a tiny infarct versus artifact. 2. Otherwise, no acute intracranial abnormality. 3. Atrophy and microvascular ischemic changes are again noted. Impression 80 year old male hx parkinson's and increased gait instability Plan 1. MRI and CT head no acute findings-questionable area would have been better defined by contrasted MRI- would not have caused the falling episodes 2. current medication-Sinemet 25/100 mg QID with Comtan 200 mg QID 3. PT/OT for any discharge needs 4. fall precautions 5. will need to wear brace at all times when walking to avoid tripping 6. increase Sinemet to 25/100 mg 1 1/2 tab 7a/11a 1 tab 3p/7p x 5 days then increase to 1 1/2 tab QID watch for light headed with standing and confusion 7. if not done recently would order TTE and carotid doppler 8. PT at [facility] for evaluation of transfer and falls and also evaluation of rolling walker may need adjusted I have seen and discussed above patient with Dr Latricia Vallejo, neurology Pt seen and examined. Exam nonlateralizing. Head tremor, facial masking, mild bl resting tremor, symm strength, reflexes. Mild generalized bradykinesia with anteropulsion. clinically suspect falls related to anteropulsion/postural instability. No clear freezing or orthostasis. Rec increase sinemet as above, monitor for confusion, orthostatic lightheadedness. Doubt clinically ischemia and unclear whether area noted on mri is not artifact. It is asymptomatic and would not explain his sx. Pt desires to be discharged this evening. Will review any recent outpt carotid US, echo. Pt would not be an anticaogulation candidate. JEAN CLAUDE Vallejo MD
[2016-12-18 15:17] VITALS: BP 144/88; PULSE 82; TEMP 36.3; O2SAT 96
[2016-12-18 17:18] VITALS: BP 144/88; PULSE 82; TEMP 36.3; O2SAT 96
[2016-12-18] MEDS ORDERED: [UNRECOGNIZED DRUG - CODE] PO (17:40)
--- NOTE | 2016-12-19 01:34 | DISCHARGE SUMMARY ---
DISCHARGE DIAGNOSES: 1. Gait dysfunction. 2. Parkinson's disease. HOSPITAL COURSE: Mr. Miguel is a 80-year-old gentleman with a history of Parkinson's disease who presented to the Emergency Department complaining of recurrent falls. He notes that he has had progressively worse stiffness in his extremities. He thinks he has become weaker over the past few weeks. His noted that his speech has become progressively more slow and weak. His initial workup in the Emergency Department is largely unremarkable save for a CT of the head that was read by radiology as showing a hyperdense focus in the region of the right Sylvian fissure. The radiologist read that this could represent a focal thrombus. However, this would be unlikely to cause the patient's clinical presentation. In any case, he was admitted for neurology consultation as well as an MRI. The MRI was read by radiology as showing a questionable punctate focus of restricted effusion within the right parietal lobe, possibly a tiny infarct versus artifact. Otherwise atrophy and chronic small vessel ischemic changes were noted. He was evaluated by neurology who agreed that the imaging findings were unlikely to be contributing to his current presentation. They did recommend increasing his Sinemet as well as physical therapy. At this point, his dose of Sinemet is being increased to 1.5 tablets of 25/100, he is to take 1.5 tablets for his 7 a.m. and 11 a.m. doses for the next 5 days while continuing to take just 1 tablet at 3 p.m. and 7 p.m. After 5 days if no problems, he is to increase to 1.5 tablets 4 times a day. This was discussed with the patient as well as with his . They are in agreement with this plan. He is to continue his Comtan at 200 mg 4 times a day. He was also evaluated by PT and OT who recommended a higher level of care. At this point, he is being discharged to [facility] where he will continue to receive PT and OT. He is to follow up with Dr. Gunn as soon as possible upon returning. At this point, the patient was discharged in stable condition. PHYSICAL EXAMINATION ON THE DAY OF DISCHARGE: GENERAL: The patient is awake and alert. He is in no distress. HEENT: The sclerae are nonicteric. The mucous membranes are moist. NECK: Trachea is midline. There is no JVD. RESPIRATORY: The lungs are clear. He was not in any respiratory distress. CARDIOVASCULAR: S1 and S2 were heard with a regular rate and rhythm. ABDOMEN: Soft, nontender, nondistended. Bowel sounds are present. EXTREMITIES: Warm, well perfused without edema. SKIN: Warm and dry. There is no cyanosis or rash. MUSCULOSKELETAL: There is no chest wall tenderness. There is no joint effusion or joint tenderness. NEUROLOGIC: The patient was awake and alert. There were no cranial nerve defects. He had fluent speech and no other focal deficits were noted. DISCHARGE MEDICATIONS: 1. Aspirin 81 mg p.o. daily. 2. Bromfenac ophthalmic drops. 3. Klonopin 1.5 mg p.o. at bedtime. 4. [id number]. 5. Comtan 200 mg p.o. 4 times a day. 6. Gabapentin 500 mg p.o. at bedtime. 7. Melatonin with pyridoxine. 8. Ocuvite tabs. 9. Prednisolone acetate ophthalmic suspension 1 drop to the right eye 4 times a day. 10. Rivastigmine 4.5 mg p.o. twice a day. 11. Col-Rite. 12. Sinemet 25/100 at 1.5 tablets p.o. at 7 a.m. and 11 a.m., 1 tablet p.o. at 3 p.m. and 7 p.m. for 5 days. If he has no adverse effects, he will increase to 1.5 tablets p.o. 4 times a day. DISCHARGE FOLLOWUP INSTRUCTIONS: Follow up with Dr. Gunn as soon as possible after discharge. DISCHARGE DIET: The patient should maintain a regular diet as tolerated. DISCHARGE ACTIVITY: The patient may resume his usual activities as tolerated. He should receive PT/OT while at the assisted living facility. Total time spent preparing this discharge was 30 minutes.
== END 2016-12-18 20:15 | disposition home or self-care (01) ==
LOC: ENRESERVTM → ENRESERVDT → C.EDB 12:37 → C.MS4W 16:57
PROVIDERS: ADMIT Hospitalist; ATTEND Hospitalist
DX: R26.89 Other abnormalities of gait and mobility (principal); Z91.81 History of falling; G20 Parkinson's disease; R41.82 Altered mental status, unspecified; E78.5 Hyperlipidemia, unspecified; Z79.82 Long term (current) use of aspirin; Z86.73 Personal history of transient ischemic attack (TIA), and cerebral infarction without residual deficits

== ENCOUNTER → 2016-12-21 | Outpatient (CLI) | payer OTHER, MEDICARE ==
[~2016-12-21] MED LIST changes: +BROM0.07 OPR; +MELA1TAB22 PO; -MELA3TAB7 PO; +PRDFOPSD OPR
[2016-12-21 08:49] LABS: BLOOD UREA NITROGEN 27 mg/dl (7-18); BUN/CREATININE RATIO 27.2 (10-20); CALCIUM 8.5 mg/dl (8.5-10.1); CARBON DIOXIDE 27 mmol/L (21-32); CHLORIDE 107 mmol/L (98-107); CREATININE 0.98 mg/dl (0.60-1.40); GLUCOSE 93 mg/dl (70-99); POTASSIUM 3.8 mmol/L (3.5-5.1); SODIUM 142 mmol/L (136-145)
== END | disposition home or self-care (01) ==
LOC: C.LABFOXMH 08:22
PROVIDERS: ATTEND Internal Medicine
DX: R63.8 Other symptoms and signs concerning food and fluid intake (principal)

== ENCOUNTER → 2016-12-25 | Day surgery (SDC) | payer OTHER, MEDICARE ==
[2016-12-03 15:00] VITALS: Ht 180.3 cm; Wt 84.1 kg
[~2016-12-25] VITALS: Ht 180.3 cm; Wt 84.1 kg
[~2016-12-25] MED LIST changes: +500ML BSS 0.3ML EPI 1:1000PF IRRIG ONE; +ACETAMINOPHEN 325 MG TAB PO PRN; +AMVISC PLUS 0.8ML SYRINGE INT OCU ONE; +ATROPINE SULFATE 0.1 MG/ML 5ML SYR IV PRN; +BSS FLUSH ONE; +EpHEDrine SULFATE INJ 50 MG/ML AMP IV PRN; +EpINEphrine INJ 1MG/ML AMP 1 MG/ML AMP ONE; +LACTATED RINGER'S 1000ML 500 ML IV SCH; +LIDOCAINE 3.5% OPH GEL PER APPLICATION CHARGE ONE; +LIDOCAINE HCL 1% MPF 2 ML VIAL ONE; +MIDAZOLAM HCL 1 MG/ML 2ML VIAL ONE; +OCUCOAT 1 ML SOLN IO ONE; +POVIDONE-IODINE OP SOLN 30 ML BTL ONE; +PROPARACAINE 0.5% OP SOLN PER DROP CHARGE OPL SCH; +TOBRAMYCIN/DEXAMETHASONE OPH OINT PER APPLN CHARGE ONE
[2016-12-25] MEDS: PHENYLEPHRINE HCL 2.5% OP SOLN PER DROP CHARGE OPL SCH ×2 (06:55→07:00)
[2016-12-25] MEDS: TROPICAMIDE 1% OP SOLN PER DROP CHARGE OPL SCH ×2 (06:56→07:01)
[2016-12-25] MEDS: CYCLOPENTOLATE HCL 1% OP SOLN PER DROP CHARGE OPL SCH ×2 (06:57→07:02)
[2016-12-25] MEDS: KETOROLAC 0.5% OP SOLN PER DROP CHARGE OPL SCH ×2 (06:58→07:03)
[2016-12-25] MEDS: GATIFLOXACIN OP SOLN PER DROP CHARGE OPL SCH ×2 (06:59→07:09)
--- NOTE | 2016-12-25 07:29 | History & Physical Bridge - SC ---
H&P Re-Evaluation Bridge Note: I have examined the patient, reviewed the History & Physical and in the interval since the performance of the History & Physical I have noted the following changes of clinical significance: Diagnosis: Left Cataract Procedure: Left Cataract Removal with Lens Implant No changes noted
--- NOTE | 2016-12-25 08:06 | [facility] Operative Report ---
Operative Report 1. PREOPERATIVE DIAGNOSIS: Cataract of the left eye. 2. POSTOPERATIVE DIAGNOSIS: Same. 3. PROCEDURE: Phacoemulsification with intraocular lens implantation of the left eye. SURGEON: Dr. Amor Parry. ANESTHESIA: Topical Lidocaine gel, 1% Non- Preserved intracameral Lidocaine, and monitored intravenous sedation. INDICATIONS FOR THE PROCEDURE: The patient is a 80 - year-old male with a history of cataract of the left eye causing significant visual impairment. The details of the proposed procedure were explained to the patient who asked appropriate questions and following discussion of all risks, benefits and alternatives agreed to have the procedure done. 4. OPERATION AND FINDINGS: DESCRIPTION OF PROCEDURE: After informed consent was obtained, the patient was brought to the Operating Room at the [facility]. The patient was placed in a supine position and then the left eye was prepped and draped in the usual sterile fashion for intraocular surgery. A drop of topical Lidocaine gel was placed in the operative eye. A wire lid speculum was then placed in the fornices. A corneal paracentesis was then created temporally. The Non-Preserved Lidocaine was then instilled into the anterior chamber. The anterior chamber was then pressurized with viscoelastic. A 2.0 mm clear corneal incision was then created temporally. A cystotome was inserted into the anterior chamber and used to create a tear in the anterior lens capsule. This capsular tear was then used to create a small flap and the flap was dragged in a counterclockwise direction in order to create a continuous curvilinear capsulorrhexis. Hydrodissection was accomplished with balanced salt solution. Phacoemulsification of the lens nucleus was then performed in a standard [id number] technique. The phaco time was 29 seconds with an average power of 11 %. The remaining cortical material was removed using irrigation aspiration. The capsular bag was then filled with viscoelastic. A [employer] MI60L +21.5 diopters lens was then loaded into the injector and injected into the capsular bag. The remaining viscoelastic was removed with the irrigation aspiration handpiece. The wound was hydrated and then checked and found to be watertight. The intraocular pressure was checked and found to be adequate. The wire lid speculum was removed and the patient's face was cleaned and dried. TobraDex ointment was placed in the inferior fornix. The patient was discharged to the Recovery Room having tolerated the procedure well. There were no complications. The patient will be seen tomorrow in the office for follow-up. I attest to the content of the Intraoperative Record and any orders documented therein. Any exceptions are noted below.
--- NOTE | 2016-12-25 08:06 | Discharge Instructions-SurgCtr ---
Discharge Instructions Visit Reason for Visit: Cataract Left Eye Discharge Discharge Diagnosis / Problem: cataract Discharge Goals Goal(s): Improve function Activity Recommendations Activity Limitations: per Instructions/Follow-up section Anesthesia . Post Anesthesia Instructions: If you have had General Anesthesia or IV Sedation: * Do not drive today. * Resume driving when surgeon permits. * Do not make important decisions or sign legal documents today. * Call surgeon for: 1. Temperature elevations greater than 101 degrees F. 2. Uncontrollable pain. 3. Excessive bleeding. 4. Persistent nausea and vomiting. 5. Medication intolerance (nausea, vomiting or rash). * For nausea and vomiting use only clear liquids such as: tea, soda, bouillon until nausea subsides, then gradually increase diet as tolerated. * If you have any concerns or questions, call your surgeon's office. If physician is unavailable and it is an emergency, call 911 or go to the nearest emergency room. . Instructions / Follow-Up Instructions / Follow-Up ACTIVITY RECOMMENDATIONS: * No strenuous lifting, jogging or running for 4 days * No swimming or yard work for 1 week. * Limited bending is permitted, such as putting on shoes. RETURN TO SCHOOL/WORK: No work until seen by physician in office. MEDICATIONS: Resume previous medications unless instructed otherwise by your surgeon. This includes eye drops for glaucoma. Zymaxid/Gatifloxacin (krause cap) - one drop every 2 hours until bedtime Nevanac/Ilevro/Prolensa/Ketorolac (wallace cap) - one drop every 4 hours until bedtime Prednisolone (white/pink cap, SHAKE WELL) - one drop every 2 hours until bedtime Starting tomorrow - all 3 drops every 4 hours until seen in the office Optive drops - as needed for discomfort SPECIAL CARE INSTRUCTIONS: * Wear eyeshield when sleeping, for four nights. * You may wear your own glasses or sunglasses while awake. * You may read or watch TV * You may shower and wash your face, but be gentle around the eye and pat dry. * Blurry vision and mild irritation are normal. * Call office if pain is more severe or vision becomes dark at . FOLLOW UP VISIT: Follow-up with Dr Parry tomorrow. Diet Recommendations Home Diet: resume previous diet Procedures Procedures Performed: Left Cataract Phacoemulsification With Intraocular Lens Implant Pending Studies Studies pending at discharge: no Medical Emergencies . Who to Call and When: Medical Emergencies: If at any time you feel your situation is an emergency, please call 911 immediately. . Non-Emergent Contact Non-Emergency issues call your: [employer] . . "Provider Documentation" section prepared by Amor Parry.
[2016-12-25 08:07] VITALS: TEMP 36.5
--- NOTE | 2016-12-25 08:20 | Anesthesia Progress Nt - [facility] ---
Anesthesia Post Op Note Date & Time Dec 25, 2016 at 08:19 Vital Signs Pain Intensity: 0 Vital Signs Past 12 Hours Date Time Temp Pulse Resp B/P Pulse Ox O2 Delivery O2 Flow Rate FiO2 12/25/16 08:07 36.5 75 16 117/76 98 Room Air 12/25/16 06:49 36.6 84 18 137/86 96 Room Air Notes Mental Status: alert / awake / arousable, participated in evaluation Pt Amnestic to Procedure: Yes Nausea / Vomiting: adequately controlled Pain: adequately controlled Airway Patency, RR, SpO2: stable & adequate BP & HR: stable & adequate Hydration State: stable & adequate Anesthetic Complications: no major complications apparent
[2016-12-25 08:28] VITALS: BP 126/80; PULSE 73; O2SAT 98
== END | disposition home or self-care (01) ==
LOC: X.SURG 06:31
PROVIDERS: ATTEND Ophthalmology
DX: H26.9 Unspecified cataract (principal); G20 Parkinson's disease; Z79.899 Other long term (current) drug therapy

== ENCOUNTER → 2017-01-31 | Outpatient (CLI) | payer OTHER, MEDICARE ==
[~2017-01-31] MED LIST changes: -500ML BSS 0.3ML EPI 1:1000PF IRRIG ONE; -ACETAMINOPHEN 325 MG TAB PO PRN; -AMVISC PLUS 0.8ML SYRINGE INT OCU ONE; -ATROPINE SULFATE 0.1 MG/ML 5ML SYR IV PRN; -BSS FLUSH ONE; -EpHEDrine SULFATE INJ 50 MG/ML AMP IV PRN; -EpINEphrine INJ 1MG/ML AMP 1 MG/ML AMP ONE; -LACTATED RINGER'S 1000ML 500 ML IV SCH; -LIDOCAINE 3.5% OPH GEL PER APPLICATION CHARGE ONE; -LIDOCAINE HCL 1% MPF 2 ML VIAL ONE; -MIDAZOLAM HCL 1 MG/ML 2ML VIAL ONE; -OCUCOAT 1 ML SOLN IO ONE; -POVIDONE-IODINE OP SOLN 30 ML BTL ONE; -PROPARACAINE 0.5% OP SOLN PER DROP CHARGE OPL SCH; -TOBRAMYCIN/DEXAMETHASONE OPH OINT PER APPLN CHARGE ONE
--- NOTE | 2017-01-31 13:28 | DIAGNOSTIC IMAGING REPORT ---
BILATERAL CAROTID DOPPLER STUDY HISTORY: Mental status change confusion COMPARISON: None. TECHNIQUE: Real-time, grayscale, and color Doppler sonography of the carotid arteries was performed. Imaging reviewed in the transverse and longitudinal planes. All measurements were calculated based on NASCET criteria. FINDINGS: Antegrade flow is seen in the bilateral vertebral arteries. The brachial pressures are hemodynamically similar. Moderate plaque dimension bilaterally The peak systolic velocity within the right ICA is 59. The right systolic ratio is 0.6. The peak systolic velocity within the left ICA is 61. The left systolic ratio is 0.7. IMPRESSION: No hemodynamically significant stenosis seen within the carotid arteries. Minimal/mild plaque formation bilaterally Electronically signed by: Froy Mcdonald M.D. 01/31/2017 1:27 PM Dictated Date/Time: 01/31/2017 1:25 PM
--- NOTE | 2017-01-31 15:02 | ECHOCARDIOGRAM REPORT ---
*NOTICE TO RECEIVING [employer]Y This information is strictly Confidential and protected under [place] law. [place] law prohibits you from making any further disclosure of this information unless further disclosure is expressly permitted by the written consent of the person to whom it pertains or is authorized by law. A general authorization for the release of medical or other information is not sufficient for this purpose. Hospital accepts no responsibility if the information is made available to any other person, INCLUDING THE PATIENT. Interpretation Summary * Name: CANDY SUERO Study Date: 01/31/2017 01:13 PM * Patient Location: [facility] HR: 76 * : 1935 (M/d/yyyy) Gender: Male Height: 71 in * Age: 81 yrs Ethnicity: [place] Weight: 185 lb * Ordering Physician: Latricia Vallejo * Referring Physician: Latricia Vallejo * Performed By: Dolores Donahue * * Reason For Study: CEREBRAL ISCHEMIA/ EMBOLUS * BSA: 2.0 m2 * -- Conclusions -- * Compared with 01/12/11 study, probably no significant change. * Injection of contrast documented no interatrial shunt. * Left ventricular systolic function is low normal. * Ejection Fraction = 50-55%. * The left ventricular wall motion is normal. * There is moderate concentric left ventricular hypertrophy. * Trace aortic regurgitation. * There is mild mitral regurgitation. * There is mild tricuspid regurgitation. * Right ventricular systolic pressure is elevated at 30-40mmHg. Procedure Details * A complete two-dimensional transthoracic echocardiogram was performed (2D, M-mode, Doppler and color flow Doppler). * A saline contrast injection was performed to assess for cardiac shunting. * The injection was performed through an intravenous line in the right arm. * The attending nurse who injected the saline contrast was NAOMY MEIER RN. * A total of 20 cc of agitated saline was given. Left Ventricle * The left ventricle is normal in size. * There is moderate concentric left ventricular hypertrophy. * Ejection Fraction = 50-55%. * Left ventricular systolic function is low normal. * The left ventricular wall motion is normal. Right Ventricle * The right ventricle is mild to moderately dilated. Atria * The left atrial size is normal. * The right atrium is mildly dilated. * The interatrial septum is intact with no evidence for an atrial septal defect. * Injection of contrast documented no interatrial shunt. Mitral Valve * The mitral valve is normal in structure and function. * There is mild mitral regurgitation. Tricuspid Valve * The tricuspid valve is normal in structure and function. * There is mild tricuspid regurgitation. * Right ventricular systolic pressure is elevated at 30-40mmHg. Aortic Valve * The aortic valve is trileaflet. * The aortic valve opens well. * Aortic valve sclerosis mild, without significant aortic valvular stenosis. * Trace aortic regurgitation. Pulmonic Valve * The pulmonic valve is not well seen, but is grossly normal. * There is no significant pulmonary regurgitation. Great Vessels * Aortic arch of normal dimension. * The aortic root is normal size. * No obvious dissection could be visualized. * The pulmonary artery is not well visualized, but is probably normal size. Pericardium/Pleural * There is no pericardial effusion. Great Vessels * The inferior vena cava is mildly dilated. MMode 2D Measurements and Calculations IVSd 1.6 cm IVSs 2.2 cm LVIDd 3.1 cm LVIDs 2.3 cm LVPWd 1.7 cm LVPWs 2.4 cm IVS/LVPW 0.92 FS 25.7 % EDV(Teich) 39.3 ml ESV(Teich) 18.9 ml EF(Teich) 51.9 % EDV(cubed) 31.1 ml ESV(cubed) 12.8 ml EF(cubed) 58.9 % % IVS thick 37.3 % % LVPW thick 36.2 % LV mass(C)d 203.2 grams LV mass(C)dI 99.6 grams/m\S\2 LV mass(C)s 266.3 grams LV mass(C)sI 130.5 grams/m\S\2 CO(Teich) 1.6 l/min CI(Teich) 0.78 l/min/m\S\2 SV(Teich) 20.4 ml SI(Teich) 10.0 ml/m\S\2 CO(cubed) 1.4 l/min CI(cubed) 0.70 l/min/m\S\2 SV(cubed) 18.3 ml SI(cubed) 9.0 ml/m\S\2 ACS 1.7 cm LA dimension 3.5 cm asc Aorta Diam 3.7 cm LVOT diam 2.1 cm LVOT area 3.4 cm\S\2 LVAd ap4 25.1 cm\S\2 LVLd ap4 7.0 cm EDV(MOD-sp4) 76.6 ml LVAs ap4 15.6 cm\S\2 LVLs ap4 6.1 cm ESV(MOD-sp4) 36.3 ml EF(MOD-sp4) 52.6 % LVAd ap2 23.2 cm\S\2 LVLd ap2 7.0 cm EDV(MOD-sp2) 64.7 ml LVAs ap2 14.3 cm\S\2 LVLs ap2 5.8 cm ESV(MOD-sp2) 30.2 ml EF(MOD-sp2) 53.3 % CO(MOD-sp4) 3.1 l/min CI(MOD-sp4) 1.5 l/min/m\S\2 SV(MOD-sp4) 40.3 ml SI(MOD-sp4) 19.8 ml/m\S\2 CO(MOD-sp2) 2.7 l/min CI(MOD-sp2) 1.3 l/min/m\S\2 SV(MOD-sp2) 34.5 ml SI(MOD-sp2) 16.9 ml/m\S\2 Doppler Measurements and Calculations MV E max juan manuel 54.4 cm/sec MV A max juan manuel 53.6 cm/sec MV E/A 1.0 MV dec time 0.26 sec Ao V2 max 106.9 cm/sec Ao max PG 4.6 mmHg Ao max PG (full) 2.0 mmHg MERON(V,A) 2.6 cm\S\2 MERON(V,D) 2.6 cm\S\2 AI max juan manuel 255.4 cm/sec AI max PG 26.1 mmHg AI dec slope 87.9 cm/sec\S\2 AI P1/2t 851.3 msec LV V1 max PG 2.6 mmHg LV V1 mean PG 1.2 mmHg LV V1 max 80.7 cm/sec LV V1 mean 47.5 cm/sec LV V1 VTI 18.9 cm MR max juan manuel 454.0 cm/sec MR max PG 82.4 mmHg SV(LVOT) 64.5 ml SI(LVOT) 31.6 ml/m\S\2 PA V2 max 55.5 cm/sec PA max PG 1.2 mmHg TR max juan manuel 252.6 cm/sec
== END | disposition home or self-care (01) ==
LOC: C.ULTR 12:32
PROVIDERS: ATTEND Psychiatry & Neurology Neurology
DX: I63.9 Cerebral infarction, unspecified (principal); I67.81 Acute cerebrovascular insufficiency

== ENCOUNTER → 2017-08-07 | Outpatient (CLI) | payer OTHER, MEDICARE ==
[2017-08-07 10:18] LABS: BLOOD UREA NITROGEN 20 mg/dl (7-18); BUN/CREATININE RATIO 20.3 (10-20); CALCIUM 9.4 mg/dl (8.5-10.1); CARBON DIOXIDE 31 mmol/L (21-32); CHLORIDE 103 mmol/L (98-107); GLUCOSE 91 mg/dl (70-99); POTASSIUM 4.1 mmol/L (3.5-5.1); SODIUM 138 mmol/L (136-145)
[2017-08-07 10:21] LABS: ALB/GLOB RATIO 1.1 (0.9-2); ALKALINE PHOSPHATASE 92 U/L (45-117); ALT/SGPT 21 U/L (12-78); AST/SGOT 21 U/L (15-37)
== END | disposition home or self-care (01) ==
LOC: C.LABFOXMH 09:13
PROVIDERS: ATTEND Nurse Practitioner Family
DX: G20 Parkinson's disease (principal); R53.1 Weakness

== ENCOUNTER → 2018-06-20 | Outpatient (CLI) | payer OTHER, MEDICARE ==
[~2018-06-20] MED LIST changes: +GABA-1693 PO; -GABA1CAP PO
[2018-06-20 08:54] LABS: HEMATOCRIT 47.4 % (42-52); HEMOGLOBIN 15.7 g/dL (14.0-18.0); MEAN CELL VOLUME 90.8 fL (80-100); MEAN CORPUSCULAR HEMOGLOBIN 30.1 pg (25-34); MEAN CORPUSCULAR HGB CONC 33.1 g/dl (32-36); MEAN PLATELET VOLUME 10.3 fL (7.4-10.4); PLATELET COUNT 239 K/uL (130-400); RED CELL DISTRIBUTION WIDTH CV 13.1 % (11.5-14.5); RED CELL DISTRIBUTION WIDTH SD 43.2 fL (36.4-46.3); WHITE BLOOD COUNT 6.28 K/uL (4.8-10.8)
[2018-06-20 09:16] LABS: ALBUMIN 3.8 gm/dl (3.4-5.0); ALKALINE PHOSPHATASE 76 U/L (45-117); ALT/SGPT 10 U/L (12-78); AST/SGOT 14 U/L (15-37); BLOOD UREA NITROGEN 21 mg/dl (7-18); CALCIUM 8.8 mg/dl (8.5-10.1); CARBON DIOXIDE 31 mmol/L (21-32); CREATININE 1.04 mg/dl (0.60-1.40); GLUCOSE 95 mg/dl (70-99); POTASSIUM 4.5 mmol/L (3.5-5.1); SODIUM 140 mmol/L (136-145); TOTAL PROTEIN 7.4 gm/dl (6.4-8.2)
== END ==
LOC: C.LABFOXMH 08:37
PROVIDERS: ATTEND Internal Medicine
DX: R06.00 Dyspnea, unspecified (principal); R60.9 Edema, unspecified; R35.0 Frequency of micturition

== ENCOUNTER 2019-03-30 01:25 | Inpatient (IN) ==
[2019-03-30 02:32] LABS: Basophils # (auto) 0.03 K/uL (0-0.2); Basophils % (auto) 0.4 %; Eosinophils # (auto) 0.27 K/uL (0-0.5); Eosinophils % (auto) 3.5 %; Hematocrit (blood only) 48.9 % (42-52); Hemoglobin 17.6 g/dL (14.0-18.0); Immature Granulocytes # (auto) 0.01 K/uL (0.00-0.02); Immature Granulocytes % (auto) 0.1 %; Lymphocytes # (auto) 1.08 K/uL (1.2-3.4); Lymphocytes % (auto) 13.9 %; Mean Corpuscular Volume 91.4 fL (80-100); Mean Platelet Volume 10.7 fL (7.4-10.4); Monocytes # (auto) 0.74 K/uL (0.11-0.59); Monocytes % (auto) 9.5 %; Neutrophils # (auto) 5.62 K/uL (1.4-6.5); Neutrophils % (auto) 72.6 %; Platelet Count 237 K/uL (130-400); RDW Coefficient of Variation 13.3 % (11.5-14.5); RDW Standard Deviation 43.8 fL (36.4-46.3); Red Blood Count 5.35 M/uL (4.7-6.1); White Blood Count 7.75 K/uL (4.8-10.8)
[2019-03-30 02:40] LABS: Alanine Aminotransferase 46 U/L (12-78); Albumin Level 4.5 gm/dl (3.4-5.0); Aspartate Aminotransferase 28 U/L (15-37); BUN Creatinine Ratio 17.1 (10-20); Blood Urea Nitrogen 21 mg/dl (7-18); Calcium 9.3 mg/dl (8.5-10.1); Carbon Dioxide 30 mmol/L (21-32); Chloride 105 mmol/L (98-107); Creatinine Clr Calc Pharmacy 48.2 ml/min; Est GFR (African American) 63.6; Est GFR (Non-African American) 54.9; Glucose 100 mg/dl (70-99); Potassium 3.7 mmol/L (3.5-5.1); Sodium 138 mmol/L (136-145)
[2019-03-30 02:51] LABS: Alkaline Phosphatase 108 U/L (45-117); Bilirubin,Total 0.6 mg/dl (0.2-1); Globulin 4.5 gm/dl (2.5-4.0); Troponin I < 0.015 ng/ml (0-0.045)
--- NOTE | 2019-03-30 06:12 | History & Physical Report ---
Date of Service March 30, 2019 Assessment & Plan (1) Weakness: 83 y/o M Hx lumbar stenosis, Parkinson's. The pt is normally active although he requires a walker for mobility and a scooter for longer distances. He was working at a [employer] this weekend and after working, became acutely w [place]. He fell when he returned home and suffered abrasions to his face. He was able to get up initially and then became progressively weaker where he could not support his own weight and lowered himself to the ground. The pt denies fevers, rigors, N/V/D or dysuria. He denies missing his Parkinson medications. He has not had unilateral weakness, a headache or any acute back pain. 1) Acute, progressive wekaness - presentation is atypical for [place] and he has not missed his Parkinson's meds so current etiology is not clear. We have consulted neurology. The pt presented with weakness in 2010 and was diagnosed with a UTI. At the time he had other related symptoms however. A UA is pending. CK is also pending although rpoximal myopathy seems unlikely as well. 2) Oarkinson's - cont Sinemet, Rivastigmine as prescribed. If this pt's symptoms are rapidly progressive, transfer to a tertiary center should be considered. Full code - Heparin prophylaxis Total time for this admit including review of labs, meds, imaging, records - discussion with pt and ER attending - 37 min Present on Admission?: Yes History of Present Illness Chief Complaint: weakness Primary Care Provider: [facility] 83 y/o M Hx lumbar stenosis, Parkinson's. The pt is normally active although he requires a walker for mobility and a scooter for longer distances. He was working at a [employer] this weekend and after working, became acutely week. He fell when he returned home and suffered abrasions to his face. He was able to get up initially and then became progressively weaker where he could not support his own weight and lowered himself to the ground. The pt denies fevers, rigors, N/V/D or dysuria. He denies missing his Parkinson medications. He has not had unilateral weakness, a headache or any acute back pain. PMH: 1) PArkinson's disease 2) Previous records indicate HTN, HLD -not currently treated 3) Sinal stenosis Surgical: 1) Back surgery x 2 Social: Does not drink or smoke Family: Noncontributory Allergies Allergy/AdvReac Type Severity Reaction Status Date / Time No Known Allergies Allergy Unknown Verified 03/30/19 03:30 Home Medications Home Medications Medication Instructions Recorded Confirmed Type aspirin 81 mg PO DAILY 03/30/19 03/30/19 History carbidopa-levodopa 1 tab PO UD PRN 03/30/19 03/30/19 History ambyfuqfb-qfknqmbr-hiltbypcbu 1 tab PO 5XD 03/30/19 03/30/19 History cholecalciferol (vitamin D3) 2,000 unit PO DAILY 03/30/19 03/30/19 History [Vitamin D3] clonazepam 0.5 mg PO HS 03/30/19 03/30/19 History entacapone 200 mg PO QID 03/30/19 03/30/19 History gabapentin 100 mg PO TID 03/30/19 03/30/19 History gabapentin 400 mg PO HS 03/30/19 03/30/19 History rivastigmine tartrate 4.5 mg PO BID 03/30/19 03/30/19 History vit C-vit T-sakykq-umyu-lutein 1 cap PO DAILY 03/30/19 03/30/19 History [PreserVision Lutein] Past Med/Surg History Medical History Lumbago (Chronic) Parkinson disease (Chronic) Hyperlipidemia (Chronic) Back pain (Resolved) Constipation (Resolved) Neurologic gait dysfunction Parkinson's disease Family History Other No pertinent family history Social History Preferred Language: Kinyarwanda Feels Safe at Home: Yes Smoking Status: Never smoker Review of Systems Review of Systems: Gen: Progressive weakness ENT: Denies congestion, throat pain, hearing loss Eyes: Denies acute visual changes CV: Denies CP, palpitations Pulmonary: Denies SOB, cough, wheezing GI: Denies N/V, diarrhea, constipation Neuro: Denies acute or unilateral weakness, acute gait impairment, headache or a cute visual changes Musculoskeletal: Denies joint pain, inflammation Endocrine: Denies polydipsia, polyuria Skin: Denies acute rashe or ulcers Physical Exam Physical Exam: General: AAO x 3, no distress ENT: No erythema or exudates, no thrush Eyes: JUNE, EOMI Head and neck: Normocephalic, atraumatic, No JVD, neck is supple. Chest/heart: Nontender, S1,2, RRR, no murmurs, no gallops Lungs: CTAB, no wheezing or crackles Abdomen: Nontender, nondistended, BS+ Neuro: AAO x 3, speech is clear, no unilateral weakness or loss of sensation, coordination intact Musculoskeletal: Speech is slightly slow, reflexes are present, there is moderate proximal and distal weakness - proximal weakness is more pronounced - no numbness - canot suport himself to sit up or stand Skin: No acute rashes or ulcers Extremities: No clubbing, cyanosis, edema Results & Data Vital Signs (Past 12 Hours) Vital Signs Temp Pulse Resp BP Pulse Ox 03/30/19 05:00 77 19 140/87 95 03/30/19 04:31 85 21 137/70 95 03/30/19 04:00 98 H 20 140/90 95 03/30/19 03:30 86 17 136/86 96 03/30/19 03:00 86 18 141/79 H 96 03/30/19 02:30 87 20 135/81 97 03/30/19 02:29 78 16 139/83 95 03/30/19 02:00 77 16 93 03/30/19 01:25 98.1 F 85 12 130/83 99
[2019-03-30 06:27] LABS: Appearance Urine Clear (Clear); Bilirubin Urine Negative (Negative); Blood Urine Negative (Negative); Color Urine Dark Yellow; Glucose Urine UA Negative (Negative); Ketones Urine Trace (Negative); Leukocyte Esterase Urine Negative (Negative); Nitrite Urine Negative (Negative); Protein Urine Negative (Negative); Specific Gravity Urine 1.026 (1.000-1.030); Urobilinogen Urine Negative (Negative); pH Urine 5.5 (4.5-7.5)
--- NOTE | 2019-03-30 06:52 | CT Scan Report ---
CT head/brain wo con CT DOSE: 921.40 mGy.cm HISTORY: Mental status change weakness TECHNIQUE: Multiaxial CT images of the head were performed without the use of intravenous contrast. A dose lowering technique was utilized adhering to the principles of ALARA. Comparison: 01/20/2019 Findings: The paranasal sinuses and mastoid air cells are clear. The calvarium and skull base are int act. The ventricles and sulci are within normal limits. There is no mass, hematoma, midline shift, or acute infarct. Age-related atrophy and chronic small vessel change Impression: No acute intracranial abnormality. Age-related atrophy and chronic small vessel change. The above report was generated using voice recognition software. It may contain grammatical, syntax or spelling errors. Electronically signed by: Froy Mcdonald M.D. 03/30/2019 6:50 AM
[2019-03-30] MEDS ORDERED: ACETAMINOPHEN 325 MG TAB PO PRN (07:07)
[2019-03-30] MEDS ORDERED: ALUMINUM/MAGNESIUM SUSP 30 ML UDC PO PRN (07:07)
[2019-03-30] MEDS ORDERED: MAGNESIUM HYDROXIDE SUSP 30 ML UDC PO PRN (07:07)
[2019-03-30] MEDS ORDERED: POLYETHYLENE (MIRALAX) 17 GM PACK PO PRN (07:07)
[2019-03-30] MEDS ORDERED: CARBIDOPA/LEVODOPA 25/100MG TAB PO PRN (07:07)
[2019-03-30] MEDS ORDERED: ONDANSETRON INJ 2 MG/ML 2 ML VIAL IV PRN (07:07)
--- NOTE | 2019-03-30 07:07 | XRay Report ---
XR chest 1V portable CLINICAL HISTORY: Weakness COMPARISON STUDY: Chest radiograph December 17, 2016. FINDINGS: Right shoulder arthroplasty is incidentally noted. There is no pneumothorax or pleural effu alesha. Mild cardiomegaly is noted without evidence for pulmonary edema. No consolidation is present. T here is apparent tortuosity of the descending thoracic aorta. IMPRESSION: No acute cardiopulmonary findings. Electronically signed by: Kel Blanchard M.D. 03/30/2019 7:06 AM
[2019-03-30] MEDS ORDERED: D5NSS + 20MEQ KCL 20 MEQ/1,000 ML BAG IV SCH (07:45)
--- NOTE | 2019-03-30 07:51 | Emergency Department Note ---
Entered by Rl Correa acting as a scribe for Lucero Romo DO History of Present Illness General Chief complaint: Weakness Stated complaint: weakness Time Seen by Provider: 03/30/19 02:30 Source: patient and family () History of Present Illness Provider complaint: Weakness Onset (ago): day(s) (two days ago around 1230) Location: head (general ) Pain Consistency: + other (episode) Quality: + other (weakness) Associated symptoms: + denies other symptoms (difficulty urinating or moving bowels) and + other (fall); no chest pain, no cough and no shortness of breath The patient is an 83 year old male who presents to the Emergency Room with complaints of generalized weakness that started around 1230 two days ago. The patient's notes that the patient has a history of Parkinson's Disease, but reports that the patient has been significantly more weak that usual. She also reports that the patient has been taking his medication as prescribed. The patient denies ever having an infection before that exacerbated his weakness like this. He denies any chest pain, shortness of breath, cough, or trouble with urinating or moving his bowels. However, the patient's states that the patient has not urinated since 1100 yesterday morning. She further notes that the patient fell yesterday due to weakness and hit his lip off of the carpeted ground. The patient states that the swelling in his legs is normal. The patient's reports that the patient's PCP has called a neurologist for the patient, but has not gotten a call back yet. Home Medications Home Medications Medication Instructions Recorded Confirmed Type carbidopa-levodopa 1 tab PO UD PRN 03/30/19 03/30/19 History ipjtndscz-ipunsqds-ipysvsixzl 1 tab PO 5XD 03/30/19 03/30/19 History cholecalciferol (vitamin D3) 2,000 unit PO DAILY 03/30/19 03/30/19 History [Vitamin D3] clonazepam 0.5 mg PO HS 03/30/19 03/30/19 History entacapone 200 mg PO QID 03/30/19 03/30/19 History gabapentin 100 mg PO TID 03/30/19 03/30/19 History gabapentin 400 mg PO HS 03/30/19 03/30/19 History rivastigmine tartrate 4.5 mg PO BID 03/30/19 03/30/19 History vit C-vit L-idwpov-imuu-lutein 1 cap PO DAILY 03/30/19 03/30/19 History [PreserVision Lutein] Allergies Allergy/AdvReac Type Severity Reaction Status Date / Time No Known Allergies Allergy Unknown Verified 03/30/19 03:30 Past Med/Surg History Medical History Lumbago (Chronic) Parkinson disease (Chronic) Hyperlipidemia (Chronic) Back pain (Resolved) Constipation (Resolved) Neurologic gait dysfunction Parkinson's disease Family History Other No pertinent family history Social History Preferred Language: Yemeni Communication Ability: Effective Back Padder Required: No Beliefs That Will Affect Care: None Current Living Situation: Spouse Current Living Situation Comment: independent living at [facility] Other Information That Helps Us Care for You: No Feels Safe at Home: Yes Smoking Status: Never smoker Hx Alcohol Use: Yes Hx Substance Use: No Review of Systems See HPI for pertinent positives & negatives. and A total of 10 systems reviewed and were otherwise negative Physical Exam Vital Signs Vital Signs - 24 hr 03/30/19 01:25 03/30/19 02:00 03/30/19 02:07 Temperature 36.7 C Temperature Source Oral Sepsis Recent Fever Within 48 Hours No Sepsis New/Unexplained Change in Mental Status No Sepsis Action Taken by Nursing No Action Required Pulse Rate 85 77 Pulse Rate [Left Finger] Pulse Rate from SpO2 Sensor 74 Pulse Rhythm [Left Finger] Pulse Strength [Left Finger] Respiratory Rate 12 16 Respiratory Effort / Characteristics Respiratory Depth Respiratory Pattern Blood Pressure 130/83 Blood Pressure [Right Arm] Blood Pressure Mean 98 Blood Pressure Mean [Right Arm] Blood Pressure Position [Right Arm] Pulse Oximetry 99 93 Oxygen Delivery Method Room Air Room Air 03/30/19 02:29 03/30/19 02:30 03/30/19 03:00 Temperature Temperature Source Sepsis Recent Fever Within 48 Hours Sepsis New/Unexplained Change in Mental Status Sepsis Action Taken by Nursing Pulse Rate 78 87 86 Pulse Rate [Left Finger] Pulse Rate from SpO2 Sensor 72 79 88 Pulse Rhythm [Left Finger] Pulse Strength [Left Finger] Respiratory Rate 16 20 18 Respiratory Effort / Characteristics Respiratory Depth Respiratory Pattern Blood Pressure 139/83 135/81 141/79 H Blood Pressure [Right Arm] Blood Pressure Mean 101 99 99 Blood Pressure Mean [Right Arm] Blood Pressure Position [Right Arm] Pulse Oximetry 95 97 96 Oxygen Delivery Method 03/30/19 03:30 03/30/19 04:00 03/30/19 04:31 Temperature Temperature Source Sepsis Recent Fever Within 48 Hours Sepsis New/Unexplained Change in Mental Status Sepsis Action Taken by Nursing Pulse Rate 86 98 H 85 Pulse Rate [Left Finger] Pulse Rate from SpO2 Sensor 86 82 80 Pulse Rhythm [Left Finger] Pulse Strength [Left Finger] Respiratory Rate 17 20 21 Respiratory Effort / Characteristics Respiratory Depth Respiratory Pattern Blood Pressure 136/86 140/90 137/70 Blood Pressure [Right Arm] Blood Pressure Mean 102 106 92 Blood Pressure Mean [Right Arm] Blood Pressure Position [Right Arm] Pulse Oximetry 96 95 95 Oxygen Delivery Method 03/30/19 05:00 03/30/19 05:30 03/30/19 06:33 Temperature Temperature Source Sepsis Recent Fever Within 48 Hours Sepsis New/Unexplained Change in Mental Status Sepsis Action Taken by Nursing Pulse Rate 77 84 84 Pulse Rate [Left Finger] Pulse Rate from SpO2 Sensor 81 84 Pulse Rhythm [Left Finger] Pulse Strength [Left Finger] Respiratory Rate 19 21 18 Respiratory Effort / Characteristics Respiratory Depth Respiratory Pattern Blood Pressure 140/87 122/86 135/76 Blood Pressure [Right Arm] Blood Pressure Mean 104 98 Blood Pressure Mean [Right Arm] Blood Pressure Position [Right Arm] Pulse Oximetry 95 95 95 Oxygen Delivery Method Room Air 03/30/19 07:01 03/30/19 07:10 Temperature 36.4 C L 36.4 C L Temperature Source Oral Oral Sepsis Recent Fever Within 48 Hours Sepsis New/Unexplained Change in Mental Status Sepsis Action Taken by Nursing Pulse Rate Pulse Rate [Left Finger] 83 83 Pulse Rate from SpO2 Sensor Pulse Rhythm [Left Finger] Regular Regular Pulse Strength [Left Finger] Normal Normal Respiratory Rate 16 16 Respiratory Effort / Characteristics Non-Labored Non-Labored Respiratory Depth Normal Normal Respiratory Pattern Regular Regular Blood Pressure Blood Pressure [Right Arm] 133/86 133/86 Blood Pressure Mean Blood Pressure Mean [Right Arm] 101 101 Blood Pressure Position [Right Arm] Lying Lying Pulse Oximetry 93 93 Oxygen Delivery Method Room Air Room Air HEENT: Head - normocephalic and atraumatic. Pupils are equal, round, and reactive to light. Extraocular eye muscles are intact and sclera are anicteric. Edema to eye lids. Nose - moist nasal mucosa without discharge. Mouth - moist buccal mucosa. Oropharynx is nonerythematous and there is no tonsillar exudate or edema noted. Neck: Supple; no JVD, nuchal rigidity, cervical lymphadenopathy, or auscultated bruits. Heart: Regular rate and rhythm. There is a normal S1 and S2 with no murmurs, clicks, or gallops appreciated. Lungs: Clear to auscultation bilaterally with no wheezes, rales, or rhonchi. Abdomen: Soft, completely nontender, nondistended, with good bowel sounds. There are no palpable pulsatile masses or hepatosplenomegaly. There is no guarding, rigidity, or rebound noted. Extremities: No evidence of cyanosis, clubbing, or edema. There are easily palpable peripheral pulses. Skin: Abrasions to chin and nose. Neuro:The patient is awake and alert, oriented to day, time, and place. He seems very stone faced and somewhat slow to answer questions. Patient has significant weakness in both proximal extremities. The patient has equal brazing machine feeder strength and equal pedal push and pull. There are no cerebellar signs. Cranial nerves II-XII are intact. Course 0259: The patient was evaluated in room A12A. A complete history and physical exam was performed. An IV lock was initiated and labs were drawn as above. The patient had a twelve-lead EKG and a chest x-ray which was unremarkable. 0420: Upon reevaluation, the patient notes that he is unable to urinate. 0428: Bladder scan results states that the patient's urine is 188ml. He will be going for a CT scan of the brain. 0450: I reviewed the patient's case with Dr. Murphy, [facility] Hospitalist. He will evaluate the patient for further management. 0525: I reevaluated the patient and he now has more normal strength in his hips and shoulders. The patient's notes that prior to coming into the ER last night, the patient got up out of bed and couldn't walk. She notes that the patient lowered himself onto the floor and then crawled up onto the fouton that she brought in for him. He then tried to sleep there. Consultations Consultation #1: Dr. Murphy, [facility]. Time: 04:50 Medical Decision Making Differential Diagnosis Differential: Exacerbation of Parkinson's, UTI, pneumonia, myasthenia gravis, and Guillain- De León syndrome. Medical Records Attestation: I reviewed the patient's medical records. Home Medications Current Medication List: was personally reviewed by me Laboratory Data Attestation: I reviewed the patient's lab results. Result diagrams: 03/30/19 01:21 03/30/19 01:21 Lab Results 03/30/19 03/30/19 03/30/19 Range/Units 01:21 01:21 04:19 WBC 7.75 (4.8-10.8) K/uL RBC 5.35 (4.7-6.1) M/uL Hgb 17.6 (14.0-18.0) g/dL Hct 48.9 (42-52) % MCV 91.4 (80-100) fL MCH 32.9 (25-34) pg MCHC 36.0 (32-36) g/dL RDW Std Deviation 43.8 (36.4-46.3) fL RDW Coeff of Rachelle 13.3 (11.5-14.5) % Plt Count 237 (130-400) K/uL MPV 10.7 H (7.4-10.4) fL Immature Gran % (Auto) 0.1 % Neut % (Auto) 72.6 % Lymph % (Auto) 13.9 % [place] % (Auto) 9.5 % Eos % (Auto) 3.5 % Baso % (Auto) 0.4 % Immature Gran # (Auto) 0.01 (0.00-0.02) K/uL Neut # (Auto) 5.62 (1.4-6.5) K/uL Lymph # (Auto) 1.08 L (1.2-3.4) K/uL [place] # (Auto) 0.74 H (0.11-0.59) K/uL Eos # (Auto) 0.27 (0-0.5) K/uL Baso # (Auto) 0.03 (0-0.2) K/uL Sodium 138 (136-145) mmol/L Potassium 3.7 (3.5-5.1) mmol/L Chloride 105 (98-107) mmol/L Carbon Dioxide 30 (21-32) mmol/L Anion Gap 3.0 (3-11) BUN 21 H (7-18) mg/dl Creatinine 1.22 (0.6-1.4) mg/dl Est Cr Clr Drug Dosing 48.2 ml/min Est GFR ( Amer) 63.6 Est GFR (Non-Af Amer) 54.9 BUN/Creatinine Ratio 17.1 (10-20) Glucose 100 H (70-99) mg/dl Calcium 9.3 (8.5-10.1) mg/dl Total Bilirubin 0.6 (0.2-1) mg/dl AST 28 (15-37) U/L ALT 46 (12-78) U/L Alkaline Phosphatase 108 (45-117) U/L Troponin I < 0.015 < 0.015 (0-0.045) ng/ml Total Protein 9.0 H (6.4-8.2) gm/dl Albumin 4.5 (3.4-5.0) gm/dl Globulin 4.5 H (2.5-4.0) gm/dl Albumin/Globulin Ratio 1.0 (0.9-2) TSH 3.300 (0.300-4.500) uIu/ml Urine Color Urine Appearance (Clear) Urine pH (4.5-7.5) Ur Specific [place] (1.000-1.030) Urine Protein (Negative) Urine Glucose (UA) (Negative) Urine Ketones (Negative) Urine Blood (Negative) Urine Nitrite (Negative) Urine Bilirubin (Negative) Urine Urobilinogen (Negative) Ur Leukocyte Esterase (Negative) 03/30/19 Range/Units 06:02 WBC (4.8-10.8) K/uL RBC (4.7-6.1) M/uL Hgb (14.0-18.0) g/dL Hct (42-52) % MCV (80-100) fL MCH (25-34) pg MCHC (32-36) g/dL RDW Std Deviation (36.4-46.3) fL RDW Coeff of Rachelle (11.5-14.5) % Plt Count (130-400) K/uL MPV (7.4-10.4) fL Immature Gran % (Auto) % Neut % (Auto) % Lymph % (Auto) % [place] % (Auto) % Eos % (Auto) % Baso % (Auto) % Immature Gran # (Auto) (0.00-0.02) K/uL Neut # (Auto) (1.4-6.5) K/uL Lymph # (Auto) (1.2-3.4) K/uL [place] # (Auto) (0.11-0.59) K/uL Eos # (Auto) (0-0.5) K/uL Baso # (Auto) (0-0.2) K/uL Sodium (136-145) mmol/L Potassium (3.5-5.1) mmol/L Chloride (98-107) mmol/L Carbon Dioxide (21-32) mmol/L Anion Gap (3-11) BUN (7-18) mg/dl Creatinine (0.6-1.4) mg/dl Est Cr Clr Drug Dosing ml/min Est GFR ( Amer) Est GFR (Non-Af Amer) BUN/Creatinine Ratio (10-20) Glucose (70-99) mg/dl Calcium (8.5-10.1) mg/dl Total Bilirubin (0.2-1) mg/dl AST (15-37) U/L ALT (12-78) U/L Alkaline Phosphatase (45-117) U/L Troponin I (0-0.045) ng/ml Total Protein (6.4-8.2) gm/dl Albumin (3.4-5.0) gm/dl Globulin (2.5-4.0) gm/dl Albumin/Globulin Ratio (0.9-2) TSH (0.300-4.500) uIu/ml Urine Color Dark Yellow Urine Appearance Clear (Clear) Urine pH 5.5 (4.5-7.5) Ur Specific [place] 1.026 (1.000-1.030) Urine Protein Negative (Negative) Urine Glucose (UA) Negative (Negative) Urine Ketones Trace H (Negative) Urine Blood Negative (Negative) Urine Nitrite Negative (Negative) Urine Bilirubin Negative (Negative) Urine Urobilinogen Negative (Negative) Ur Leukocyte Esterase Negative (Negative) Imaging Data Radiologist's Impression: Radiology results as stated below per my review and the radiologist's interpretation: CT HEAD: Comparison: CT dated 01/20/2019 No evidence of acute intracranial abnormality. Atrophy and chronic small vessel ischemic disease. Mild left posterolateral scalp swelling/hematoma. Correlate for recent trauma. Radiologist: Sherry Wong MD Study ready at 04:56 and initial results transmitted at 05:26 ECG Data Attestation: I personally reviewed and interpreted this ECG as follows: Indication: weakness Rate (beats per minute): 76 Rhythm: normal sinus Findings: + other (no ischemia) and + PAC Blood Pressure Blood Pressure Findings: Normal blood pressure Blood Pressure Disposition: did not require urgent referral MDM Narrative The patient is an 83 year old male who presents to the Emergency Room with complaints of generalized weakness that started around 1230 two days ago. The patient's describes a fairly sudden onset of weakness. It became dramatically worse. She does describe that he usually can get around using his walker but states that he was unable to do so and she became concerned last night when the patient was unable to get up out of bed and actually slid to the floor. The patient describes that he is unable to roll from side to side in his bed which is very unusual. I was evaluating the patient for rapidly progressive neurological disorder and/or exacerbation of his Parkinson's disease. CT scan of the brain was unremarkable. There were no acute laboratory findings but the patient remained weak, however the weakness seemed to be improving. I discussed the case with the [facility] Hospitalist and they will evaluate for further management. Impression & Plan Weakness Discharge Plan Visit Data *Final* Discharge Date/Time: 03/30/19 06:33 Chief Complaint: Weakness Stated Complaint: weakness ED Provider: Lucero Romo Discharge Problem: Weakness Patient Disposition: Admitted As Inpatient Discharge Instructions Interventions: ED Discharge Assessment Last Done: 03/30/19 06:33 The scribe's documentation has been prepared under my direction and personally reviewed by me in its entirety. I confirm that the note above accurately reflects all work, treatment, procedures, and medical decision making performed by me.
[2019-03-30] MEDS: ASPIRIN 81 MG ECTAB PO SCH (08:13)
[2019-03-30] MEDS ORDERED: ENTACAPONE 200 MG TAB PO SCH (09:00)
[2019-03-30] MEDS: RIVASTIGMINE TARTRATE 1.5 MG CAP PO SCH ×3 (09:34→20:22)
[2019-03-30] MEDS: GABAPENTIN 100 MG CAP PO SCH ×3 (09:37→20:22)
--- NOTE | 2019-03-30 10:39 | Neurology Consultation ---
Date of Consultation March 30, 2019 Assessment & Plan (1) Weakness: Andres is a pleasant 83 year old male with a PMH of Parkinsons, HTN, HLD, Restless leg syndrome and spinal stenosis that presented to [facility] after experiencing shaking and weakness in his lower extremities. It seems that El symptoms are likely secondary to his Parkinsons disease (off period) vs worsening restless leg syndrome. He does seem to be close to baseline at this point. We would like to see the patient up and ambulating and it would be best to see how he does with physical therapy this morning. Follow up with his neurologist in [place] would be best as an outpatient in the near future to discuss any medication changes they feel might be needed. No medication changes or further testing recommended at this point while he is an inpatient. If there are any other concerns please don't hesitate to contact the neurology team. Supervising Physician Co-Signing Physician Notes Neurology attending addendum: Patient presented with reported weakness on Saturday. Describes it as extremity twitching and shakiness. Unclear if true weakness versus motor dysfunction from his Parkinson's. Patient describes what sounds like myoclonus in the extremities, mostly in the legs. 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 He denies any significant medication changes. He reports that he did see his neurologist in [place] 3 weeks ago and he was given permission to take an extra 100 mg of gabapentin at night but reports that he had not done this before Saturday. He reports that he takes gabapentin for tremor (gabapentin is used an essential tremor). In addition the patient does have known lumbar stenosis, but denies any worsening back pain or radiculopathy type symptoms down his legs. In addition denies any significant neck pain. He did report headache on Saturday but reports it similar to headaches he had in the past. Patient reports that in terms of his Parkinson's control, he often feels that his medication is wearing off 30 minutes before his next dose. He takes Sinemet 5 times a day. He has been doing physical therapy and on ongoing basis due to ambulatory dysfunction. Reports that at baseline he uses a walker and a motorized scooter for longer distances. He denies any new numbness. No changes with vision or speech. No changes with mentation or memory. Exam: Gen.: Patient is alert and oriented in no acute distress lying in bed Heart: Regular rate and rhythm Extremities: No gross deformities or rashes noted Neurological examination: Mental status: Patient is alert and oriented to person place and time. Able to give own history. Good fund of knowledge. Attention and concentration normal for the situation. Recent and remote memory intact Speech is fluent without any dysarthria or aphasia noted Cranial nerves: Visual cunningham intact. Pupils equally round and reactive to light. Extraocular muscles intact without nystagmus. No facial asymmetry noted. Facial sensation intact. Tongue midline. Good palatal elevation. Good shoulder shrug bilaterally. Hearing grossly intact voice. Strength: 5/5 both proximal and distal in all extremities .Tone is normal in upper extremities. Patient does demonstrate noticeable high amplitude low-frequency tremors in bilateral upper extremity and lower extremities that appear to be consistent with Parkinson's tremor and does improve with action. In addition has a higher frequency head tremor that is likely consistent with essential tremor. May also have some minimal essential tremor with [id number]. Sensation: Grossly intact to light touch in all extremities Deep tendon reflexes: +1 in bilateral biceps and patellar. Coordination: Patient has good finger to nose without dysmetria Station within the bed is normal. Assessment: Overall appears that what ever happened Saturday may have been a combination of multiple factors in combination with his Parkinson's disease. He may have had a more severe extended off time causing ambulatory and motor dysfunction. I do not think that he had a stroke and I think it is unlikely that he had any acute spinal disease or injury. Could consider his lumbar stenosis for some of his leg symptoms, but this would not explain his upper extremity symptoms (which is why I am prone to think that this is more diffuse process related to his Parkinson's). It appears that myoclonus has been going on for the last 10 years but may have been worse Saturday. Potentially myoclonus could be related to gabapentin, but can also be seen in other metabolic disorders and medications. Patient seems to feel that the myoclonic jerks are related to his restless leg, which they may be. Recommendations: Recommend getting the patient up and moving this morning. If any issues consider physical therapy evaluation and treatment. If the patient is back to his baseline, could reasonably be discharged home and follow-up with his outpatient neurologist regarding management of his Parkinson's medications. Thank you for allowing me to participate in this patient's care. If there is any questions or concerns, feel free to call/page me. History of Present Illness Attending Physician: Tez Donahue MD Andres is a pleasant 83 year old male with a PMH of Parkinsons, HTN, HLD, Restless leg syndrome and spinal stenosis that presented to [facility] after experiencing shaking and weakness in his lower extremities. At baseline Andres ambulates with a walker and will get around in a wheelchair when ambulating long distances. On Saturday morning on 03/28/19 at approximately 1130 am he noticed that his right leg started to shake and soon after his left leg started to shake. He said soon both legs started to shake and the shaking gradually progressed to his upper body and his arms started to shake also. He then tried to walk to the toilet but was unable to so he tried crawling to the toilet to get his medicine. While he was doing this his arms became weak and he hit his head on the ground. He notes he was on the ground until 6pm when his got home from a concert. She then helped him up. He had dinner with his and he went to bed. In the morning of 03/29/19 when he woke up he felt very weak in his legs and had to crawl to ambulate. He tried getting up onto his futon to sleep more but had trouble due to weakness in his upper extremities. His then called the nurse whom called the ambulance so the patient was brought to the ED. He notes that on 03/28/19 when he had the intermittent shaking episodes in the afternoon he had a headache but notes these headaches are typical when his leg shakes. During this sequence of events the patient denied any tongue biting, loss of consciousness, urinary retention, stool incontinence, back pain, neck pain, peripheral numbness/ tingling, difficulty swallowing, visual changes, fevers, chills or shortness of breath. The patient notes that he has a history of unilateral intermittent leg shaking that has been ongoing for several years, but he has never had both legs shake or both arms shake before. He sees a neurologist in [place] and last saw him 3 weeks ago at which point the physician added a 100mg prn dose of gabapentin for the shaking which the patient has only taken on a few occasions but stopped because it didn't seem to be helping his symptoms. He denies any other changes in his recent medication regimen. The patient is lives at [facility] and participates in exercise activities twice a day. He lives with his at [facility]. In the ED the patients vital signs were unremarkable. He had a CBC, CMP, CK and trop done which were unremarkable. He also had a CXR and CT scan of his head which were unremarkable. He was admitted due to the fact that he had trouble ambulating when in the emergency department. Today the patient feels that he is closer to baseline. He says his leg is still intermittently shaking but he says this is normal for him. He denies any upper extremity weakness and says he no longer has a headache. He is asking if he can go home today. Allergies Allergy/AdvReac Type Severity Reaction Status Date / Time No Known Allergies Allergy Unknown Verified 03/30/19 03:30 Home Medications Home Medications Medication Instructions Recorded Confirmed Type carbidopa-levodopa 1 tab PO UD PRN 03/30/19 03/30/19 History oinembict-wrapdybx-ahywkzxwxc 1 tab PO 5XD 03/30/19 03/30/19 History cholecalciferol (vitamin D3) 2,000 unit PO DAILY 03/30/19 03/30/19 History [Vitamin D3] clonazepam 0.5 mg PO HS 03/30/19 03/30/19 History entacapone 200 mg PO QID 03/30/19 03/30/19 History gabapentin 100 mg PO TID 03/30/19 03/30/19 History gabapentin 400 mg PO HS 03/30/19 03/30/19 History rivastigmine tartrate 4.5 mg PO BID 03/30/19 03/30/19 History vit C-vit K-kmrdyz-xlmv-lutein 1 cap PO DAILY 03/30/19 03/30/19 History [PreserVision Lutein] Patient History Medical History Lumbago (Chronic) Parkinson disease (Chronic) Hyperlipidemia (Chronic) Back pain (Resolved) Constipation (Resolved) Neurologic gait dysfunction Parkinson's disease Family History Other No pertinent family history Social History Preferred Language: Greek Communication Ability: Effective Diet Clerk Required: No Beliefs That Will Affect Care: None Current Living Situation: Spouse Current Living Situation Comment: independent living at [facility] Other Information That Helps Us Care for You: No Feels Safe at Home: Yes Smoking Status: Never smoker Hx Alcohol Use: Yes Hx Substance Use: No Review of Systems Constitutional: + weakness; no fever, no chills, no sweats and no fatigue Eyes: no diplopia, not seeing flashes and no worsening vision Ear, Nose, Mouth, Throat: no change in voice and no dysphagia Respiratory: no cough and no dyspnea Cardiovascular: no chest pain, no dyspnea, no orthopnea, no syncope and no edema Gastrointestinal: no abdominal pain, no nausea and no vomiting Genitourinary: no dysuria, no urinary frequency and no urinary hesitancy Musculoskeletal: + muscle weakness; no back pain, no neck pain and no radicular pain Neurologic: + unsteadiness, + generalized weakness, + tremor(s) and + restless legs; no paresthesia, no headache(s), no abnormal speech, no confusion and no memory loss Patient has not got out of bed and is unsure if his legs are still weak Physical Exam Eyes: PERRL, conjunctivae normal, anicteric sclerae ENMT: external ear and nose normal, oropharynx normal Respiratory: normal respiratory effort, lungs clear to auscultation Cardiovascular: RRR, no murmur, no edema Gastrointestinal (Abdomen): normal bowel sounds, soft, nontender, no hepatosplenomegaly Skin: no rashes, warm and dry Neurologic: CN: 2-12 intact and without any focal deficits Upper limb neuro: sensation intact, 5/5 power in both upper extremities, Dr. Quick performed reflex's (please see addendum) Lower limb neuro: sensation intact, 5/5 power in both lower extremities, Dr. Quick performed reflex's (please see addendum) Cardiac: RRR, no murmurs illicited Resp: normal vesicular breath sounds without any wheezing or rhonchi Back: no spinous process tenderness along cervical, thoracic or lumbar spine, no paraspinal tenderness along spine Abdomen: soft and non tender with normal bowel sounds: Neuro: fine resting tremor in both upper and lower extremities, normal tone in upper and lower extremities, no rigidity noted in both upper and lower extremities Psych: alert and orientated to person, place and time, mild slowing of speech Results & Data Vital Signs (Past 12 Hours) Vital Signs Temp Pulse Pulse Resp BP BP Pulse Ox 03/30/19 07:10 36.4 C L 83 16 133/86 93 03/30/19 07:01 36.4 C L 83 16 133/86 93 03/30/19 06:33 84 18 135/76 95 03/30/19 05:30 84 21 122/86 95 03/30/19 05:00 77 19 140/87 95 03/30/19 04:31 85 21 137/70 95 03/30/19 04:00 98 H 20 140/90 95 03/30/19 03:30 86 17 136/86 96 03/30/19 03:00 86 18 141/79 H 96 03/30/19 02:30 87 20 135/81 97 03/30/19 02:29 78 16 139/83 95 03/30/19 02:00 77 16 93 03/30/19 01:25 36.7 C 85 12 130/83 99
[2019-03-30] MEDS: ENTACAPONE 200 MG TAB PO SCH ×4 (11:00→22:43)
[2019-03-30] MEDS: CARBIDOPA/LEVODOPA 25/100MG TAB PO SCH ×4 (11:30→22:44)
[2019-03-30] MEDS: clonazePAM 0.5 MG TAB PO SCH (20:21)
[2019-03-30] MEDS: GABAPENTIN 400 MG CAP PO SCH (20:22)
--- OUTSIDE RECORDS SUMMARY | 2019-03-30 22:46 | External Medical Summary | Continuity of Care Document ---
:1935 Author Name Tk Bob, Provider Address Unavailable Unavailable , Care Team Providers Name Role Phone NonMNPG Lisbeth, Provider Unavailable [email or web address] Beverly PA-C Unavailable [email or web address] SAENZ Bere Unavailable Unavailable Unavailable Unavailable Unavailable Problems SNHL (sensorineural hearing loss) (389.10) (H90.5) Trauma of ear canal (959.09) (S09.91XA) Impacted cerumen of left ear (380.4) (H61.22) Lesion of left earlobe (380.9) (H61.92) Dermatitis of left ear canal (380.22) (H60.542) Left otitis externa (380.10) (H60.92) Allergies and Adverse Reactions No Known Drug Allergies (Allergy) Medications Sinemet TABS Refills: 0 KlonoPIN TABS Refills: 0 Co Q-10 CAPS Refills: 0 Requip 1 MG TABS Refills: 0 Aspirin 81 MG TABS Refills: 0 Tobramycin-Dexamethasone 0.3-0.1 % Ophth almic Suspension; 5 drops in left ear TID x 10 days RHIANNON Wallis Start: 18-Oct-2017 Quantity: 1 10 ML Bottle Refills: 3 Ciprodex 0.3-0.1 % Otic Suspension; INST ILL 5 DROPS TO LEFT EAR Twice daily x 10 days RHIANNON Wallis Start: 17-Oct-2017 Quantity: 1 7.5 ML Bottle Refills: 3 Mometasone Furoate 0.1 % External Cream; APPLY SPARINGLY TO AFFECTED AREAS IN EARS TWICE DAILY.(AM AND PM). RHIANNON Wallis Start: 31-Oct-2017 Quantity: 1 15 GM Tube Refills: 2 Ofloxacin 0.3 % Otic Solution; INSTILL 5 DROPS INTO BOTH EARS TWICE DAILY x 1 week RHIANNON Wallis Start: 14-Dec-2014 Quantity: 1 10 ML Bottle Refills: 3 Procedures History of Back Surgery Status: Complete d History of Shoulder Surgery Status: Comp leted History of Knee Surgery Status: Complete d Immunizations Immunizations not documented Family History Mother No pertinent family history (V49.89) (Z78.9) Status: Active Father No pertinent family history (V49.89) (Z78.9) Status: Active Social History - Smoking Status Never smoker Plan of Treatment Planned Observations Planned Goals not documented Results No Known Results Results not documented Encounters Appointment; Ashwin Jay Au.D.|[facility] 15-May-2018 11:20 Encounter Diagnosis: Problem not documented Appointment; Ashwin Jay Au.D.|[facility] 06-May-2018 11:20 Encounter Diagnosis: Problem not documented Appointment; Reina Wallis PA-C 05-May-2018 11:00 Encounter Diagnosis: Problem not documented Appointment; Ashwin Jay Au.D.|[facility] 10-Feb-2018 11:20 Encounter Diagnosis: Problem not documented Appointment; Reina Wallis PA-C 30-Jan-2018 11:00 Encounter Diagnosis: Problem not documented Appointment; Reina Wallis PA-C 31-Oct-2017 14:00 Encounter Diagnosis: Problem not documented Appointment; Reina Wallis PA-C 17-Oct-2017 14:20 Encounter Diagnosis: Problem not documented Appointment; Ashwin Jay Au.D.|[facility] 16-Oct-2017 10:20 Encounter Diagnosis: Problem not documented Appointment; Ashwin Jay Au.D.|[facility] 28-Aug-2017 10:20 Encounter Diagnosis: Problem not documented Appointment; Ashwin Jay Au.D.|[facility] 15-Aug-2017 15:40 Encounter Diagnosis: Problem not documented"
[2019-03-31] MEDS: ENTACAPONE 200 MG TAB PO SCH ×5 (06:32→22:27)
[2019-03-31] MEDS: CARBIDOPA/LEVODOPA 25/100MG TAB PO SCH ×5 (06:33→22:27)
[2019-03-31] MEDS: RIVASTIGMINE TARTRATE 1.5 MG CAP PO SCH ×2 (08:05→20:03)
[2019-03-31] MEDS: ASPIRIN 81 MG ECTAB PO SCH (08:06)
[2019-03-31] MEDS: GABAPENTIN 100 MG CAP PO SCH ×3 (08:06→20:02)
--- NOTE | 2019-03-31 14:08 | Hospitalist Progress Note ---
Date of Service March 31, 2019 Assessment & Plan (1) Weakness: Due to overexertion from being out all day. Patient and feel he is back to baseline which is to say still very weak and unsteady on his feet. - Plan for PT/OT & possible placement. 2) Parkinson's - Seen by neurology on admission without concern for acute neurologic process. - Cont Sinemet, Rivastigmine as prescribed. Subjective Feeling well this morning. No major concerns. Reports some trouble with eating, but only when he doesn't follow the aspiration precautions previously given. Reports no fevers/chills, chest pain, shortness of breath, abdominal pain, nausea, or vomiting. Review of Systems Constitutional: no fever, no chills and no sweats Eyes: no diplopia Ear, Nose, Mouth, Throat: no ear trauma, no nasal discharge and no dental pain Respiratory: no cough, no chest congestion and no dyspnea Cardiovascular: no chest pain, no dyspnea on exertion, no palpitations and no syncope Gastrointestinal: no abdominal pain, no belching, no constipation, no diarrhea/loose stools, no blood in stools and no melena Musculoskeletal: no back pain, no joint pain and no muscle weakness Integumentary: no rash, no skin ulcer and no erythema Neurologic: no generalized weakness, no loss of sensation, no numbness and no paresthesia Psychiatric: no depression and no anxiety Endocrine: no fatigue, no polydipsia and no polyphagia Physical Exam Eyes: PERRL, conjunctivae normal, anicteric sclerae ENMT: external ear and nose normal, oropharynx normal Respiratory: normal respiratory effort, lungs clear to auscultation Cardiovascular: RRR, no murmur, no edema Gastrointestinal (Abdomen): normal bowel sounds, soft, nontender, no hepatosplenomegaly Skin: no rashes, warm and dry Results & Data Vital Signs (Past 12 Hours) Vital Signs Temp Pulse Pulse Resp BP Pulse Ox 03/31/19 12:28 36.7 C 94 H 18 128/82 94 03/31/19 08:00 72 03/31/19 07:16 36.4 C L 75 18 122/78 93 03/31/19 04:00 36.5 C 68 18 132/83 97
[2019-03-31] MEDS: clonazePAM 0.5 MG TAB PO SCH (20:02)
[2019-03-31] MEDS: GABAPENTIN 400 MG CAP PO SCH (20:03)
[2019-04-01] MEDS: CARBIDOPA/LEVODOPA 25/100MG TAB PO SCH ×5 (06:14→21:15)
[2019-04-01] MEDS: ENTACAPONE 200 MG TAB PO SCH ×5 (06:14→21:14)
[2019-04-01] MEDS: ASPIRIN 81 MG ECTAB PO SCH (08:05)
[2019-04-01] MEDS: GABAPENTIN 100 MG CAP PO SCH ×3 (08:05→21:14)
[2019-04-01] MEDS: RIVASTIGMINE TARTRATE 1.5 MG CAP PO SCH ×2 (08:06→21:13)
--- NOTE | 2019-04-01 14:20 | Hospitalist Progress Note ---
Date of Service April 01, 2019 Assessment & Plan (1) Weakness: Due to overexertion from being out all day. Patient and feel he is back to baseline which is to say still very weak and unsteady on his feet. - Plan for PT/OT & possible placement. 2) Parkinson's - Seen by neurology on admission without concern for acute neurologic process. - Cont Sinemet, Rivastigmine as prescribed. Subjective No major complaints. Still feeling weak, but not acutely. Reports no fevers/chills, chest pain, shortness of breath, abdominal pain, nausea, or vomiting. Physical Exam Eyes: PERRL, conjunctivae normal, anicteric sclerae ENMT: external ear and nose normal, oropharynx normal Respiratory: normal respiratory effort, lungs clear to auscultation Cardiovascular: RRR, no murmur, no edema Gastrointestinal (Abdomen): normal bowel sounds, soft, nontender, no hepatosplenomegaly Skin: no rashes, warm and dry Results & Data Vital Signs (Past 12 Hours) Vital Signs Temp Pulse Pulse Resp BP BP Pulse Ox 04/01/19 11:55 36.9 C 73 18 129/84 95 04/01/19 08:00 81 04/01/19 07:24 37.0 C 85 18 137/89 91 04/01/19 04:00 36.3 C L 79 20 113/69 93
[2019-04-01 17:29] LABS: Appearance Urine Clear (Clear); Bilirubin Urine Negative (Negative); Blood Urine Negative (Negative); Color Urine Dark Yellow; Glucose Urine UA Negative (Negative); Ketones Urine Trace (Negative); Leukocyte Esterase Urine Negative (Negative); Nitrite Urine Negative (Negative); Protein Urine Negative (Negative); Specific Gravity Urine 1.022 (1.000-1.030); Urobilinogen Urine Negative (Negative); pH Urine 6.5 (4.5-7.5)
[2019-04-01] MEDS: GABAPENTIN 400 MG CAP PO SCH (21:13)
[2019-04-01] MEDS: clonazePAM 0.5 MG TAB PO SCH (21:18)
[2019-04-02] MEDS: ENTACAPONE 200 MG TAB PO SCH (06:09)
[2019-04-02] MEDS: CARBIDOPA/LEVODOPA 25/100MG TAB PO SCH (06:09)
[2019-04-02] MEDS: RIVASTIGMINE TARTRATE 1.5 MG CAP PO SCH (08:28)
[2019-04-02] MEDS: ASPIRIN 81 MG ECTAB PO SCH (08:28)
[2019-04-02] MEDS: GABAPENTIN 100 MG CAP PO SCH (08:29)
--- NOTE | 2019-04-02 17:31 | Discharge Summary ---
Date of Service April 02, 2019 Admission HPI Per Admitting Provider 83 y/o M Hx lumbar stenosis, Parkinson's. The pt is normally active although he requires a walker for mobility and a scooter for longer distances. He was working at a [employer] this weekend and after working, became acutely week. He fell when he returned home and suffered abrasions to his face. He was able to get up initially and then became progressively weaker where he could not support his own weight and lowered himself to the ground. The pt denies fevers, rigors, N/V/D or dysuria. He denies missing his Parkinson medications. He has not had unilateral weakness, a headache or any acute back pain. PMH: 1) PArkinson's disease 2) Previous records indicate HTN, HLD -not currently treated 3) Sinal stenosis Surgical: 1) Back surgery x 2 Social: Does not drink or smoke Family: Noncontributory Principal Diagnosis Fatigue, Parkinson's disease Discharge Exam Eyes PERRL, conjunctivae normal, anicteric sclerae ENMT external ear and nose normal, oropharynx normal Respiratory normal respiratory effort, lungs clear to auscultation Cardiovascular RRR, no murmur, no edema Gastrointestinal (Abdomen) normal bowel sounds, soft, nontender, no hepatosplenomegaly Skin no rashes, warm and dry Discharge Data Allergies Allergy/AdvReac Type Severity Reaction Status Date / Time No Known Allergies Allergy Unknown Verified 03/30/19 03:30 Consultations 03/30/19 04:57 ED Decision to Admit Stat 03/30/19 07:07 Consult Neurology Routine Ordered Studies 03/30/19 04:07 CT head/brain wo con Urgent Hospital Course (1) Weakness: Due to overexertion from being out all day. Patient and feel he is back to baseline which is to say still very weak and unsteady on his feet. - Plan for PT/OT & possible placement. 2) Parkinson's - Seen by neurology on admission without concern for acute neurologic process. - Cont Sinemet, Rivastigmine as prescribed. Total Time Total Time Spent Total Time Spent (In Minutes): 35 Total Time Includes: Examination of the Patient, Discharge Planning and Communication With Other Providers Discharge Plan Discharge Items Patient Disposition: Transfer Inpatient Rehab Fac Reason For Visit: ACUTE WEAKNESS Discharge Diagnosis: Weakness Discharge Goals: Decrease discomfort, Diagnostic testing and Improve disease control Activity: Resume your previous activity Non-emergency contact: Primary Care Provider and Neurologist Call non-emergency contact if: you have any medication questions, your symptoms worsen and your pain is not controlled Follow-up/Referrals: Geo Glass [Primary Care Provider] - Diet: Regular Addtl Provider Instructions: Mr. Miguel, You were admitted with weakness after spending a long day outside. We were worried about worsening Parkinson's disease or another neurologic issue; however, you returned to normal with some rest and IV fluids. Dr. Quick (our neurologist) saw you and felt the weakness was due to your Parkinson's and fatigue. You were able to work with Physical Therapy and wanted to go home to [facility]. We are sending you to [facility]'s rehab area for a short stay to improve your strength before going back home. Please follow up with your outpatient neurologist at your next scheduled visit. Return to the hospital with any further weakness or other concerning symptoms. Prescriptions: Continued clonazepam 0.5 mg tablet 0.5 mg PO HS RF: 0 gabapentin 400 mg capsule 400 mg PO HS RF: 0 entacapone 200 mg Tablet 200 mg PO QID RF: 0 rivastigmine tartrate 4.5 mg capsule 4.5 mg PO BID RF: 0 gabapentin 100 mg capsule 100 mg PO TID RF: 0 PreserVision Lutein 226 mg-200 unit -5 mg-0.8 mg Capsule 1 cap PO DAILY RF: 0 cholecalciferol (vitamin D3) [Vitamin D3] 2,000 unit Capsule 2,000 unit PO DAILY RF: 0 carbidopa-levodopa 25-100 mg tablet 1 tab PO UD PRN (Reason: stiffness,restless leg) RF: 0 vuaseslhx-ldqknfvu-nyibddcntq 37.5-150-200 mg tablet 1 tab PO 5XD RF: 0 Stand-Alone Forms: [facility] Discharge Orders: Discharge Order (Routine); Ordered 04/02/19 Ordered By: Tez Donahue Skilled Items Patient informed of condition?: Yes DNR: No Discharge Level of Care: Acute rehab Communicable Disease: No Discharge Prognosis: Stable Admission Data Admit Date/Time: 03/30/19 05:56 Attending Provider: Tez Donahue Admit Provider: Oliver Murphy Primary Care Provider: [place] Other Providers: Oliver Murphy Emile Pierre III Service: Telemetry Medical Other Interventions: Discharge Summary Assessment (RN) Last Done: 04/02/19 09:30 DC Date/Time DO NOT enter until pt leaves facility: 04/02/19 10:01
== END 2019-04-02 10:01 | DRG 57 ==
LOC: ED 01:25 → SUATTDRO 05:56 → 2N 05:56

== ENCOUNTER 2019-08-21 14:32 | Inpatient (IN) ==
[2019-08-21] MEDS ORDERED: SODIUM CHLORIDE 0.9% 1000ML 500 ML IV ONE (14:52)
[2019-08-21 15:16] LABS: Basophils # (auto) 0.03 K/uL (0-0.2); Basophils % (auto) 0.4 %; Eosinophils # (auto) 0.22 K/uL (0-0.5); Eosinophils % (auto) 2.7 %; Hematocrit (blood only) 44.6 % (42-52); Hemoglobin 15.3 g/dL (14.0-18.0); Immature Granulocytes # (auto) 0.02 K/uL (0.00-0.02); Immature Granulocytes % (auto) 0.2 %; Lymphocytes # (auto) 1.04 K/uL (1.2-3.4); Lymphocytes % (auto) 12.7 %; Mean Corpuscular Hemoglobin 30.9 pg (25-34); Mean Corpuscular Hgb Conc 34.3 g/dL (32-36); Mean Corpuscular Volume 90.1 fL (80-100); Mean Platelet Volume 9.5 fL (7.4-10.4); Monocytes # (auto) 0.98 K/uL (0.11-0.59); Monocytes % (auto) 11.9 %; Neutrophils # (auto) 5.92 K/uL (1.4-6.5); Neutrophils % (auto) 72.1 %; Platelet Count 188 K/uL (130-400); RDW Coefficient of Variation 13.1 % (11.5-14.5); RDW Standard Deviation 43.1 fL (36.4-46.3); Red Blood Count 4.95 M/uL (4.7-6.1); White Blood Count 8.21 K/uL (4.8-10.8)
[2019-08-21 15:33] LABS: BUN Creatinine Ratio 17.2 (10-20); Blood Urea Nitrogen 19 mg/dl (7-18); Calcium 8.6 mg/dl (8.5-10.1); Carbon Dioxide 30 mmol/L (21-32); Chloride 101 mmol/L (98-107); Est GFR (African American) 73.7; Est GFR (Non-African American) 63.6; Glucose 95 mg/dl (70-99); Potassium 4.4 mmol/L (3.5-5.1); Sodium 135 mmol/L (136-145)
[2019-08-21 15:38] LABS: Troponin I < 0.015 ng/ml (0-0.045)
[2019-08-21 16:22] LABS: INR 1.1 (0.9-1.1); Prothrombin Time 11.1 Seconds (9.0-12.0)
--- NOTE | 2019-08-21 16:47 | CT Scan Report ---
CT head/brain wo con CLINICAL HISTORY: 83 years-old Male presenting with shortness of breath, Parkinson's disease, concern for intracranial hemorrhage. TECHNIQUE: Multidetector CT imaging of the head was performed without the use of intravenous contrast . IV contrast: None. One or more dose lowering techniques were used consistent with the principles of ALARA (as low as reasonably achievable), including automatic exposure control, mA or kV adjustment t o individual patient size, and/or use of iterative reconstruction. COMPARISON: 05/25/2019. CT DOSE (mGy.cm): The estimated cumulative dose is 614.27 mGy.cm. FINDINGS: Junior Java Developer topogram: Unremarkable. Proportional ventricular and sulcal prominence, likely age-related parenchymal volume loss. No hemorr brien. Periventricular and subcortical white matter hypoattenuation, nonspecific but likely indicative of chronic small vessel ischemic change. No acute territorial infarct. No mass effect or midline kandy ft. No extra-axial fluid collection. Paranasal sinuses and mastoid air cells clear. Calvarium intact. IMPRESSION: 1. Chronic small vessel ischemic change. No acute intracranial abnormality. Electronically signed by: Aquiles Barraza M.D. 08/21/2019 4:45 PM
[2019-08-21] MEDS ORDERED: HEPARIN SOD 5,000 UNIT/0.5 ML VIAL ONE (17:02)
[2019-08-21] MEDS: HEPARIN SODIUM/DEXTROSE 25,000 UNITS/500 ML BAG IV SCH (17:07)
[2019-08-21] MEDS ORDERED: ACETAMINOPHEN 325 MG TAB PO PRN (17:15)
[2019-08-21] MEDS ORDERED: CARBIDOPA/LEVODOPA 25/100MG TAB PO PRN (17:15)
[2019-08-21] MEDS ORDERED: MAGNESIUM HYDROXIDE SUSP 30 ML UDC PO PRN ×2 (17:15→17:16)
[2019-08-21] MEDS ORDERED: ALUMINUM/MAGNESIUM SUSP 30 ML UDC PO PRN (17:16)
[2019-08-21] MEDS ORDERED: ONDANSETRON INJ 2 MG/ML 2 ML VIAL IV PRN (17:16)
--- NOTE | 2019-08-21 17:42 | History & Physical Report ---
Date of Service August 21, 2019 Assessment & Plan (1) Pulmonary embolism: Acute respiratory failure secondary to above Considered unprovoked since he is at his baseline immobility and he is most likely will remain like that, giving the indication for long-term protection against coagulation Ordered admission to telemetry Vitals per protocol Currently will be started on heparin drip, Can be switched prior to discharge to Eliquis Fall precautions CT head did not reveal any intracranial bleed I had a long discussion with patient and his . Since April until last week he did not have any falls, but then last week he did have one fall as he tried to ambulate by himself without assistance. He is at the nursing side of [facility] and he is supposed to be 2 people assist. If he become compliant with that then he can be safely placed on anticoagulation like Eliquis for life. IVC filter has its prongs and cons and in many events when a blood clot forms on the IV filter that will require being on anticoagulation for the rest of his life anyway. We will revisit this discussion again prior to discharge, but I am in favor of anticoagulation rather than IVC filter. 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 Patient was admitted to the hospital about 4 months ago for recurrent falls. Due to progressive Parkinson's disease currently lives in [facility] and supposed to be 2 people assist for ambulation but sometimes when he tries to use the bathroom and they do not come on time he tries to stand up and walk by himself, about 1 week ago he had a fall that was uneventful but since his last admission in April until last week he only had one fall. Patient was noticed to be progressively short of breath, denies any chest pain, his primary care physician at [facility] sent him for an outpatient CT angiogram That was positive for multiple acute emboli, in distal left main, left lower lobe and right arterial upper and lower lobes Primary Care Provider: [facility] Allergies Allergy/AdvReac Type Severity Reaction Status Date / Time simvastatin Allergy Unknown Verified 08/21/19 15:34 Home Medications Home Medications Medication Instructions Recorded Confirmed Type acetaminophen [Tylenol] 650 mg PO Q4 PRN 08/21/19 08/21/19 History carbidopa-levodopa 1 tab PO UD PRN 08/21/19 08/21/19 History edzrrrbld-hiyahelm-rqgrdwtfpm 1 tab PO .5XSDAY 08/21/19 08/21/19 History [Stalevo 150] lwxjqyazv-lpwzwskw-vfenneipcn 1 tab PO DAILY 08/21/19 08/21/19 History [Stalevo 150] cholecalciferol (vitamin D3) 2,000 unit PO DAILY 08/21/19 08/21/19 History [Vitamin D3] clonazepam [Klonopin] 1.5 mg PO HS 08/21/19 08/21/19 History gabapentin 400 mg PO HS 08/21/19 08/21/19 History magnesium hydroxide [Milk of 30 ml PO Q OTHER DAY PRN 08/21/19 08/21/19 History Magnesia] mirabegron [Myrbetriq] 25 mg PO QAM 08/21/19 08/21/19 History polyethylene glycol 3350 [Miralax] 17 g PO DAILY 08/21/19 08/21/19 History rivastigmine tartrate 4.5 mg PO BID 08/21/19 08/21/19 History vitamins A,C,F-lvpk-tqctln 1 tab PO QAM 08/21/19 08/21/19 History [PreserVision AREDS] Past Med/Surg History Medical History Lumbago (Chronic) Parkinson disease (Chronic) Hyperlipidemia (Chronic) Parkinson's disease (Chronic) Back pain (Resolved) Constipation (Resolved) Neurologic gait dysfunction (Resolved) Surgical History H/O knee surgery H/O shoulder surgery History of back surgery Family History Father Cerebral aneurysm Social History Preferred Language: [place] Communication Ability: Effective 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 Beliefs That Will Affect Care: None Current Living Situation: Spouse Current Living Situation Comment: independent living at [facility] current occupational status: retired Feels Safe at Home: Yes Smoking Status: Never smoker Hx Alcohol Use: Yes Alcohol Intake Frequency: Rarely Hx Substance Use: No Dental Care, Regularly: Yes Physical Activity Frequency: Daily Seatbelt Use: always Review of Systems Review of Systems: Review of system Constitutional: No fever / no chills / no sweats / no weakness / no fatigue Eyes: no blurring of vision / no eye pain / no discharge / no redness ENT: no hearing loss / no epistaxis /no swallowing problems Respiratory: Shortness of breath, no wheezing or cough, no chest pain/ no hemoptysis Cardiovascular: no Chest pain / no lower extremity edema / no palpitation Abdomen: no pain / no nausea / no vomiting / no constipation Musculoskeletal: no joint pain / no muscle pain / no joint swelling Genitourinary: no dysuria / no incontinence / no urinary retention Neurologic: no focal weakness / no numbness/tingling / no ataxia mobility dysfunction as mentioned above Psychiatric: no depression symptoms / no anxiety / no insomnia Endocrine: no excessive thirst / no excessive urination Hematologic: no abnormal bleeding / no bruising / no LN swelling Skin: No rash / no pallor Physical Exam Physical Exam: Physical examination General average build man appears to be in acute distress HEENT: Atraumatic , normocephalic /no jaundice /no pallor /anicteric /no dry mucous membrane /normal external ear inspection Neck: Supple /no swelling /central trach Heart: Regular tachycardia/regular rate and rhythm/no gallop /no rub /no murmur Lungs: Clear to auscultation bilaterally/normal chest with expansion/no rhonchi/no rales/no wheezing/no use of accessory muscles of respiration Abdomen: Soft/nontender/no guarding/no rebound/no organomegaly/no pulsatile mass Musculoskeletal: No swelling/no edema/no tenderness/normal range of motion Neuro exam: Awake alert oriented 3/cranial nerves II through XII appear to be intact/sensation intact/moves all extremities/no abnormal movements, gait was not attempted due to history of significant fall and rigidity from Parkinson's Psychiatric evaluation: No depressed mood/normal affect Skin: No rash on exposed skin area/no erythema Extremity: Normal pulse/no pitting edema/no clubbing or cyanosis Endocrine/lymphatic: No obvious lymphadenopathy /no lymphedema Results & Data Vital Signs (Past 12 Hours) Vital Signs Temp Pulse Pulse Resp BP BP Pulse Ox 08/21/19 17:00 132 H 18 108/80 96 08/21/19 15:45 130 H 17 103/81 96 08/21/19 14:36 36.7 C 132 H 18 99/64 L 95 Code Status & VTE Plan VTE Prophylaxis Plan VTE Prophylaxis will be ordered: Yes PG Care Time/CCT Total # of Minutes Spent Total Time Spent with Patient: 35 minutes total time spent is greater than 50% in coordination of care (as documented) at patient's floor/unit and/or counseling patient/family discussion of care with nursing staff (1) Pulmonary embolism Acute cor pulmonale presence: without acute cor pulmonale Chronicity: unspecified Pulmonary embolism type: unspecified Qualified Code(s): I26.99 - Other pulmonary embolism without acute cor pulmonale
--- NOTE | 2019-08-21 17:57 | Emergency Department Note ---
Entered by Allison Coronado acting as a scribe for History of Present Illness General Chief complaint: Referred by Doctor Stated complaint: DOCTOR REFERRED Time Seen by Provider: 08/21/19 14:41 Source: patient and family () History of Present Illness Onset (ago): hour(s) (prior to arrival) Location: chest Pain Consistency: + other (episode) Maximum Pain Intensity: 0 Quality: + other (pulmonary emboli noted by PCP CT chest) Associated symptoms: + other (-blood in stools; -blood in urine) The patient is an 83 year old male who presents to the Emergency Room with complaints of an episode bilateral pulmonary emboli that were noted prior to ar rival. The patient's PCP referred the patient to the ED after a Chest CT revealed the pulmonary emboli. The of the patient notes the patient has history of Parkinson's, and he experiences frequent falls. The of the patient notes he fell in the last two weeks, but the patient notes he never hit his head. The patient denies blood in stools or in his urine. Home Medications Home Medications Medication Instructions Recorded Confirmed Type acetaminophen [Tylenol] 650 mg PO Q4 PRN 08/21/19 08/21/19 History carbidopa-levodopa 1 tab PO UD PRN 08/21/19 08/21/19 History gohtqagov-hyvpycmo-vhzinzuyap 1 tab PO .5XSDAY 08/21/19 08/21/19 History [Stalevo 150] fatawniwd-uxfiirae-eaqtbewprl 1 tab PO DAILY 08/21/19 08/21/19 History [Stalevo 150] cholecalciferol (vitamin D3) 2,000 unit PO DAILY 08/21/19 08/21/19 History [Vitamin D3] clonazepam [Klonopin] 1.5 mg PO HS 08/21/19 08/21/19 History gabapentin 400 mg PO HS 08/21/19 08/21/19 History magnesium hydroxide [Milk of 30 ml PO Q OTHER DAY PRN 08/21/19 08/21/19 History Magnesia] mirabegron [Myrbetriq] 25 mg PO QAM 08/21/19 08/21/19 History polyethylene glycol 3350 [Miralax] 17 g PO DAILY 08/21/19 08/21/19 History rivastigmine tartrate 4.5 mg PO BID 08/21/19 08/21/19 History vitamins A,C,M-iopn-lwtfsn 1 tab PO QAM 08/21/19 08/21/19 History [PreserVision AREDS] Allergies Allergy/AdvReac Type Severity Reaction Status Date / Time simvastatin Allergy Unknown Verified 08/21/19 15:34 Past Med/Surg History Medical History Lumbago (Chronic) Parkinson disease (Chronic) Hyperlipidemia (Chronic) Parkinson's disease (Chronic) Back pain (Resolved) Constipation (Resolved) Neurologic gait dysfunction (Resolved) Surgical History H/O knee surgery H/O shoulder surgery History of back surgery Family History Father Cerebral aneurysm Social History Preferred Language: Malaysian Communication Ability: Effective Finish Mixer Required: No Beliefs That Will Affect Care: None Current Living Situation: Spouse Current Living Situation Comment: independent living at [facility] current occupational status: retired Feels Safe at Home: Yes Smoking Status: Never smoker Hx Alcohol Use: Yes Alcohol Intake Frequency: Rarely Hx Substance Use: No Dental Care, Regularly: Yes Physical Activity Frequency: Daily Seatbelt Use: always Review of Systems See HPI for pertinent positives & negatives. and A total of 10 systems reviewed and were otherwise negative Physical Exam Vital Signs Vital Signs - 24 hr 08/21/19 14:36 08/21/19 15:45 08/21/19 17:00 Temperature 36.7 C Temperature Source Oral Sepsis Recent Fever Within 48 Hours No Sepsis Action Taken by Nursing No Action Required Pulse Rate 132 H Pulse Rate [Apical] 130 H 132 H Pulse Rhythm [Apical] Regular Regular Respiratory Rate 18 17 18 Respiratory Effort / Characteristics Non-Labored Spontaneous Non-Labored Spontaneous Respiratory Depth Normal Normal Respiratory Pattern Regular Regular Blood Pressure 99/64 L Blood Pressure [Left Arm] 103/81 108/80 Blood Pressure Mean 75 Blood Pressure Mean [Left Arm] 88 89 Pulse Oximetry 95 96 96 Oxygen Delivery Method Room Air Room Air 08/21/19 17:46 Temperature Temperature Source Sepsis Recent Fever Within 48 Hours Sepsis Action Taken by Nursing Pulse Rate Pulse Rate [Apical] Pulse Rhythm [Apical] Respiratory Rate Respiratory Effort / Characteristics Respiratory Depth Respiratory Pattern Blood Pressure Blood Pressure [Left Arm] Blood Pressure Mean Blood Pressure Mean [Left Arm] Pulse Oximetry Oxygen Delivery Method Room Air GENERAL: He is oriented to person, place, and time. He appears well-developed and well-nourished. He does not appear distressed. HENT: Exam performed. - Head: Normocephalic and atraumatic. - Right Ear: External ear normal. No mastoid tenderness. - Left Ear: External ear normal. No mastoid tenderness. - Mouth/Throat: The oropharynx is clear and moist. No trismus in the jaw. No dental abscesses or uvula swelling. No oropharyngeal exudate or tonsillar abscesses. EYES: Conjunctivae and EOM are normal. Pupils are equal, round, and reactive to light. Right eye exhibits no discharge. Left eye exhibits no discharge. No scleral icterus. NECK: Normal range of motion. Neck supple. No JVD present. No spinous process tenderness present. No carotid bruit present. No rigidity. No tracheal deviation and normal range of motion present. No Brudzinski's sign and no Kernig's sign noted. CV: Tachycardic rate, regular rhythm, normal heart sounds and intact distal pulses. There is no peripheral edema. Palpable radial pulses bue. PULM/CHEST: Lungs indicated rhonchi bilaterally. No respiratory distress. No st ridor. - Chest Wall: He exhibits no tenderness. ABD: The abdomen is soft. Bowel sounds are normal. He has no distension. No mass is present. There is no tenderness. There is no rebound, no guarding, no Recinos's sign and no tenderness at McBurney's point. Rovsig negative. MUSC/SKEL: Normal range of motion. There is no peripheral edema, tenderness or deformity. LYMPH: No cervical adenopathy. NEURO: Mild tremors. SKIN: Skin is warm and dry. He is not diaphoretic. PSYCH: He has a normal mood and affect. Behavior is normal. Judgment and thought content normal. Course 1442: Past medical records reviewed. The patient was referred to the Ed due to a chest CT scan that revealed bilateral pulmonary emboli. No saddle embolus or evidence of right heart strain on CTA. The patient was evaluated in room B9. A complete history and physical exam was performed. 1548: Patient's troponin negative. Patient remains tachycardic in the emergency department. I discussed the patient's case with Dr. Gunn-Internal Medicine. Dr. Gunn states the patient has a history of recurrent falls, and he agrees the patient is not a good candidate for long-term anti-coagulation. He and I both thought the patient will have anti-coagulation for the time being, be admitted, and see if an IVC filter can be placed to avoid long term care pharmacist anti- coagulation. Patient is agreeable to the plan. Since the patient had a fall two weeks ago, we will do a CT Head. If negative, the plan is to start heparin. 1619: I reviewed the patient's case with Dr. Nuñez-[facility]. Dr. Nuñez is agreeable with the plan. He will evaluate the patient for further management. 1648: The patient's CT was negative. He will begin heparin and the patient will be admitted to the hospitalist service under the care of Dr. Nuñez. Consultations Consultation #1: I discussed the patient's case with Dr. Gunn-Internal Medicine. Dr. Gunn states the patient has a history of recurrent falls, and he agrees the patient is not a good candidate for long-term anti-coagulation. He and I both thought the patient will have anti-coagulation for the time being, be admitted, and see if an IVC filter can be placed to avoid long term care pharmacist anti- coagulation. Patient is agreeable to the plan. Since the patient had a fall two weeks ago, we will do a CT Head. If negative, the plan is to start heparin. Time: 15:48 Consultation #2: I reviewed the patient's case with Dr. Nuñez[facility]. Dr. Nuñez is agreeable with the plan. He will evaluate the patient for further management. Time: 16:19 Administered Medications Heparin Sodium/Dextrose (Heparin Sodium/Dextrose) 25,000 units in 500 mls @ 29 mls/hr IV .[id number] [facility]; Protocol Stop: 09/20/19 16:59 Last Admin: 08/21/19 17:07 Dose: 1,450 units/hr, 29 mls/hr Documented by: [id number] Cosigned by: [id number] Discontinued Medications Heparin Sodium (Porcine) (Heparin Sodium (Porcine)) Confirm Administered Dose 10,000 units .ROUTE .STK-MED ONE Stop: 08/21/19 17:03 Last Admin: 08/21/19 17:07 Dose: 6,000 units Documented by: [id number] Cosigned by: [id number] Heparin Sodium/Dextrose () 1 ea IV NOW STA; Protocol Stop: 08/21/19 16:49 Last Admin: 08/21/19 17:08 Dose: Not Given Documented by: [id number] Sodium Chloride (Nss 1000ml) 500 mls @ 999 mls/hr IV .Q31M ONE Stop: 08/21/19 15:22 Last Infusion: 08/21/19 15:55 Dose: 0 mls/hr Documented by: [id number] Admin: 08/21/19 15:16 Dose: 999 mls/hr Documented by: [id number] Medical Decision Making Medical Records Attestation: I reviewed the patient's medical records. Home Medications Current Medication List: was personally reviewed by me Laboratory Data Attestation: I reviewed the patient's lab results. Result diagrams: 08/21/19 14:59 08/21/19 14:59 Lab Results 08/21/19 08/21/19 08/21/19 Range/Units 14:59 14:59 15:12 WBC 8.21 (4.8-10.8) K/uL RBC 4.95 (4.7-6.1) M/uL Hgb 15.3 (14.0-18.0) g/dL Hct 44.6 (42-52) % MCV 90.1 (80-100) fL MCH 30.9 (25-34) pg MCHC 34.3 (32-36) g/dL RDW Std Deviation 43.1 (36.4-46.3) fL RDW Coeff of Rachelle 13.1 (11.5-14.5) % Plt Count 188 (130-400) K/uL MPV 9.5 (7.4-10.4) fL Immature Gran % (Auto) 0.2 % Neut % (Auto) 72.1 % Lymph % (Auto) 12.7 % Calhoun % (Auto) 11.9 % Eos % (Auto) 2.7 % Baso % (Auto) 0.4 % Immature Gran # (Auto) 0.02 (0.00-0.02) K/uL Neut # (Auto) 5.92 (1.4-6.5) K/uL Lymph # (Auto) 1.04 L (1.2-3.4) K/uL Calhoun # (Auto) 0.98 H (0.11-0.59) K/uL Eos # (Auto) 0.22 (0-0.5) K/uL Baso # (Auto) 0.03 (0-0.2) K/uL PT (9.0-12.0) Seconds INR (0.9-1.1) Sodium 135 L (136-145) mmol/L Potassium 4.4 (3.5-5.1) mmol/L Chloride 101 (98-107) mmol/L Carbon Dioxide 30 (21-32) mmol/L Anion Gap 4.0 (3-11) BUN 19 H (7-18) mg/dl Creatinine 1.08 (0.6-1.4) mg/dl Est Cr Clr Drug Dosing Not Reportable Est GFR ( Amer) 73.7 Est GFR (Non-Af Amer) 63.6 BUN/Creatinine Ratio 17.2 (10-20) Glucose 95 (70-99) mg/dl Calcium 8.6 (8.5-10.1) mg/dl POC Troponin I < 0.03 (0-0.045) ng/ml Troponin I < 0.015 (0-0.045) ng/ml 08/21/19 Range/Units 16:00 WBC (4.8-10.8) K/uL RBC (4.7-6.1) M/uL Hgb (14.0-18.0) g/dL Hct (42-52) % MCV (80-100) fL MCH (25-34) pg MCHC (32-36) g/dL RDW Std Deviation (36.4-46.3) fL RDW Coeff of Rachelle (11.5-14.5) % Plt Count (130-400) K/uL MPV (7.4-10.4) fL Immature Gran % (Auto) % Neut % (Auto) % Lymph % (Auto) % Calhoun % (Auto) % Eos % (Auto) % Baso % (Auto) % Immature Gran # (Auto) (0.00-0.02) K/uL Neut # (Auto) (1.4-6.5) K/uL Lymph # (Auto) (1.2-3.4) K/uL Calhoun # (Auto) (0.11-0.59) K/uL Eos # (Auto) (0-0.5) K/uL Baso # (Auto) (0-0.2) K/uL PT 11.1 (9.0-12.0) Seconds INR 1.1 (0.9-1.1) Sodium (136-145) mmol/L Potassium (3.5-5.1) mmol/L Chloride (98-107) mmol/L Carbon Dioxide (21-32) mmol/L Anion Gap (3-11) BUN (7-18) mg/dl Creatinine (0.6-1.4) mg/dl Est Cr Clr Drug Dosing Est GFR ( Amer) Est GFR (Non-Af Amer) BUN/Creatinine Ratio (10-20) Glucose (70-99) mg/dl Calcium (8.5-10.1) mg/dl POC Troponin I (0-0.045) ng/ml Troponin I (0-0.045) ng/ml Imaging Data Radiologist's Impression: Radiology results as stated below per my review and the radiologist's interpretation: CT head/brain wo con CLINICAL HISTORY: 83 years-old Male presenting with shortness of breath, Parkinson's disease, concern for intracranial hemorrhage. TECHNIQUE: Multidetector CT imaging of the head was performed without the use of intravenous contrast. IV contrast: None. One or more dose lowering techniques were used consistent with the principles of ALARA (as low as reasonably achievable), including automatic exposure control, mA or kV adjustment to individual patient size, and/or use of iterative reconstruction. COMPARISON: 05/25/2019. CT DOSE (mGy.cm): The estimated cumulative dose is 614.27 mGy.cm. FINDINGS: Sanitor topogram: Unremarkable. Proportional ventricular and sulcal prominence, likely age-related parenchymal volume loss. No hemorrhage. Periventricular and subcortical white matter hypoattenuation, nonspecific but likely indicative of chronic small vessel ischemic change. No acute territorial infarct. No mass effect or midline shift. No extra-axial fluid collection. Paranasal sinuses and mastoid air cells clear. Calvarium intact. IMPRESSION: 1. Chronic small vessel ischemic change. No acute intracranial abnormality. Electronically signed by: Aquiles Barraza M.D. 08/21/2019 4:45 PM ECG Data Attestation: I personally reviewed and interpreted this ECG as follows: Indication: other (arrhythmia ) Rate (beats per minute): 132 Rhythm: sinus rhythm Findings: + other (MD,QRC,QTC all within normal limits; there is baseline artifact and wander due to patient's underlying tremor); no ST depression and no ST elevation Blood Pressure Blood Pressure Findings: Normal blood pressure MDM Narrative 1442: Past medical records reviewed. The patient was referred to the Ed due to a chest CT scan that revealed bilateral pulmonary emboli. No saddle embolus or evidence of right heart strain on CTA. The patient was evaluated in room B9. A complete history and physical exam was performed. 1548: Patient's troponin negative. Patient remains tachycardic in the emergency department. I discussed the patient's case with Dr. Gunn-Internal Medicine. Dr. Gunn states the patient has a history of recurrent falls, and he agrees the patient is not a good candidate for long-term anti-coagulation. He and I both thought the patient will have anti-coagulation for the time being, be ad mitted, and see if an IVC filter can be placed to avoid long term care pharmacist anti- coagulation. Patient is agreeable to the plan. Since the patient had a fall two weeks ago, we will do a CT Head. If negative, the plan is to start heparin. 1619: I reviewed the patient's case with Dr. Nuñez-Hospitalist [facility]. Dr. Nuñez is agreeable with the plan. He will evaluate the patient for further management. 1648: The patient's CT was negative. He will begin heparin and the patient will be admitted to the hospitalist service under the care of Dr. Nuñez. Impression & Plan Pulmonary embolism Critical Care Time Critical Care Time: Yes Total Critical Care Time: 48 I have personally spent 48 minutes of critical care time in the direct management of this patient. This includes bedside care, interpretation of diagnostic studies, and testing, discussion with consultants, patient, and family members, and other required patient management activities. This 48 minutes is in excess of all separately billable procedures. Discharge Plan Visit Data Chief Complaint: Referred by Doctor Stated Complaint: DOCTOR REFERRED ED Provider: Jay Jay Beebe Discharge Problem: Pulmonary embolism Patient Disposition: Being Evaluated by Hospitalist Discharge Instructions Interventions: ED Discharge Assessment Last Done: 08/21/19 17:46 Forms Stand Alone Forms: My [facility] Prescriptions Prescriptions: No Action acetaminophen [Tylenol] 325 mg Tablet 650 mg PO Q4 PRN (Reason: Fever Or Pain) RF: 0 polyethylene glycol 3350 [Miralax] 17 gram Powder In Packet 17 g PO DAILY RF: 0 clonazepam [Klonopin] 0.5 mg tablet 1.5 mg PO HS RF: 0 gabapentin 400 mg Capsule 400 mg PO HS RF: 0 magnesium hydroxide [Milk of Magnesia] 400 mg/5 mL Suspension 30 ml PO Q OTHER DAY PRN (Reason: Constipation) RF: 0 rivastigmine tartrate 4.5 mg capsule 4.5 mg PO BID RF: 0 carbidopa-levodopa 25-100 mg tablet 1 tab PO UD PRN (Reason: S/S PARKINSONS) RF: 0 ftalsmbhb-cyemwtsl-trledxhouu [Stalevo 150] 37.5-150-200 mg tablet 1 tab PO DAILY RF: 0 fkwkmgiju-thubxdcy-ubxoiigwso [Stalevo 150] 37.5-150-200 mg tablet 1 tab PO .5XSDAY RF: 0 cholecalciferol (vitamin D3) [Vitamin D3] 2,000 unit Tablet 2,000 unit PO DAILY RF: 0 PreserVision AREDS 7,160-113-100 djuy-qp-jvyb Tablet 1 tab PO QAM RF: 0 Myrbetriq 25 mg tablet extended release 24 hr 25 mg PO QAM RF: 0 Referrals Referrals: Geo Glass [Primary Care Provider] - Discharge Problem: Pulmonary embolism Qualifiers: Pulmonary embolism type: unspecified Chronicity: unspecified Acute cor pulmonale presence: without acute cor pulmonale Qualified Code(s): I26.99 - Other pulmonary embolism without acute cor pulmonale The scribe's documentation has been prepared under my direction and personally reviewed by me in its entirety. I confirm that the note above accurately reflects all work, treatment, procedures, and medical decision making performed by me.
--- NOTE | 2019-08-21 18:18 | Ultrasound Report ---
US venous doppler LE CLINICAL HISTORY: 83 years-old Male presenting with PE , R/O DVT. TECHNIQUE: Real-time grayscale and color and spectral Doppler ultrasound imaging of the veins of the bilateral lower extremities was performed. Compression and augmentation were also utilized. COMPARISON: None. FINDINGS: RIGHT: Common femoral vein: Nearly occlusive thrombus. This is at the confluence with the greater saphenous vein. No apparent extension into the greater saphenous vein. Greater saphenous vein (superficial): Patent. Deep femoral vein: Nearly occlusive thrombus. Femoral vein: Intermittent nonocclusive thrombus. Popliteal vein: Nonocclusive thrombus. Calf veins: Occlusive thrombus in the posterior tibial and peroneal veins. LEFT: Common femoral vein: Patent. Greater saphenous vein (superficial): Patent. Deep femoral vein: Patent. Femoral vein: Patent. Popliteal vein: Patent. Calf veins: Thrombus within the posterior tibial and peroneal veins. Anterior tibial vein patent. Other: None. IMPRESSION: Bilateral deep venous thrombosis more extensive within the right lower extremity. This is largely non occlusive. The report will be called/faxed according to standard departmental protocol for a critical finding. Electronically signed by: Aquiles Barraza M.D. 08/21/2019 6:16 PM
[2019-08-21] MEDS: ENTACAPONE 200 MG TAB PO SCH (19:39)
[2019-08-21] MEDS ORDERED: CARBIDOPA/LEVODOPA 25/100MG TAB PO SCH (20:00)
[2019-08-21] MEDS ORDERED: ENTACAPONE 200 MG TAB PO SCH (20:00)
[2019-08-21] MEDS: CARBIDOPA/LEVODOPA 25/100MG TAB PO SCH (21:06)
[2019-08-21] MEDS: RIVASTIGMINE TARTRATE 1.5 MG CAP PO SCH (21:07)
[2019-08-21] MEDS: GABAPENTIN 400 MG CAP PO SCH (21:07)
[2019-08-21] MEDS: clonazePAM 0.5 MG TAB PO SCH (21:11)
[2019-08-21 23:43] LABS: Partial Thromboplastin Time 53.7 Seconds (21.0-31.0)
[2019-08-22] MEDS: ENTACAPONE 200 MG TAB PO SCH ×6 (03:05→19:37)
[2019-08-22] MEDS: CARBIDOPA/LEVODOPA 25/100MG TAB PO SCH ×6 (03:05→19:35)
[2019-08-22 06:12] LABS: Basophils # (auto) 0.04 K/uL (0-0.2); Basophils % (auto) 0.4 %; Eosinophils # (auto) 0.28 K/uL (0-0.5); Eosinophils % (auto) 2.9 %; Hematocrit (blood only) 43.1 % (42-52); Hemoglobin 14.7 g/dL (14.0-18.0); Immature Granulocytes # (auto) 0.02 K/uL (0.00-0.02); Immature Granulocytes % (auto) 0.2 %; Lymphocytes # (auto) 1.14 K/uL (1.2-3.4); Lymphocytes % (auto) 11.8 %; Mean Corpuscular Hemoglobin 30.5 pg (25-34); Mean Corpuscular Hgb Conc 34.1 g/dL (32-36); Mean Corpuscular Volume 89.4 fL (80-100); Mean Platelet Volume 10.2 fL (7.4-10.4); Monocytes % (auto) 10.4 %; Neutrophils # (auto) 7.15 K/uL (1.4-6.5); Neutrophils % (auto) 74.3 %; Platelet Count 185 K/uL (130-400); RDW Coefficient of Variation 13.2 % (11.5-14.5); RDW Standard Deviation 43.2 fL (36.4-46.3); Red Blood Count 4.82 M/uL (4.7-6.1); White Blood Count 9.63 K/uL (4.8-10.8)
[2019-08-22 06:50] LABS: Albumin Level 3.2 gm/dl (3.4-5.0); Calcium 8.3 mg/dl (8.5-10.1); Creatinine Clr Calc Pharmacy 64.6 ml/min; Est GFR (African American) 90.6; Est GFR (Non-African American) 78.2
[2019-08-22 06:52] LABS: Albumin Globulin Ratio 0.9 (0.9-2); Bilirubin,Total 1.1 mg/dl (0.2-1); Globulin 3.5 gm/dl (2.5-4.0); Total Protein 6.7 gm/dl (6.4-8.2)
[2019-08-22] MEDS: RIVASTIGMINE TARTRATE 1.5 MG CAP PO SCH ×2 (08:01→19:36)
[2019-08-22] MEDS: CEROVITE ADV FORMULA TAB PO SCH (08:02)
[2019-08-22] MEDS: MIRABEGRON ER 25 MG TAB PO SCH (08:02)
[2019-08-22] MEDS: POLYETHYLENE (MIRALAX) 17 GM PACK PO SCH (08:04)
[2019-08-22] MEDS ORDERED: SODIUM CHLORIDE 0.9% 1000ML 500 ML IV ONE ×2 (08:51→11:55)
[2019-08-22] MEDS: SODIUM CHLORIDE 0.9% 1000ML 1,000 ML IV SCH ×3 (09:33→22:24)
--- NOTE | 2019-08-22 10:29 | Family Medicine Progress Note ---
Date of Service August 22, 2019 Assessment & Plan (1) Pulmonary embolism: - no hx fall or inciting event. Unprovoked DVT + PE - multiple pulmonary emboli found on CTA imaging in right pulmonary artery, distal L main pulmonary artery and the lower left lobe arterial system - venous doppler scan of bilateral lower extremities found: - nearly occlusive DVTs in R common femoral vein and deep femoral vein - intermittently non-occlusive DVT in R femoral vein - Occlusive DVT in R and L peroneal and posterior tibial veins - patient has been placed on a heparin drip for clot management - will likely be converted to a DOAC at discharge as he would need lifetime therapy of bloodthinners and not necessarily benefit from IVC placement. - He has also been hypotensive and tachycardic likely secondary to being intravascularly dry and having increased right heart strain with the multiple em boli - patient received a 500 NS bolus on the wards which he responded well to. - 1 L NS drip started at 125 ml/Hr - additional 500 ml NS bolus added since BP natty to only 93/67 from 84/63 Present on Admission?: Yes (2) Acute respiratory failure with hypoxia: - Satting well on room air this morning - no complaints of shortness of breath at this point Supervising Physician Co-Signing Physician Notes I personally examined the patient and verified all devi points of history and exam, discussed case, and agree with decision making with Dr Garcia. Feeling good. No chest pain no shortness of breath no symptoms at all Vitals noted, in general he is awake and alert pleasant no distress. HEENT normal cephalic atraumatic mucous members are moist. Breathing unlabored no accessory muscle use good effort. Skin shows no rashes no pallor or icterus. Pulmonary embolifortunately overall fairly stable, does have a little bit of onset of hemodynamics, but they are improving with fluids. Continue heparin, anticipate transition to direct oral anticoagulant tomorrow if he continues to look this good. Tachycardiarelated to PE. Improving with IV fluids. Continue to follow closely given his age and frailty, but he seems to be completely asymptomatic with this Hypotensionrelated to PEimproved with fluids. Now stable. Otherwise as above Subjective Mr. Miguel is a pleasant 83 yo M with a history of parkinson's, HLD, who was admitted to the hospital for shortness of breath due to multiple pulmonary emboli found on CTA. This morning he feels well, denies shortness of breath, pleuritic chest pain, chest tightness, nausea, pain with deep breaths. Review of Systems Constitutional: no fever, no chills and no fatigue Respiratory: no cough, no dyspnea, no pain on inspiration, no pain with cough and no wheezing Cardiovascular: no chest pain, no palpitations and no calf pain Gastrointestinal: no abdominal pain and no nausea Physical Exam Constitutional: well developed, + thin, cooperative and comfortable Respiratory: normal respiratory effort and able to speak in complete sentences; no respiratory distress, no retractions, no cough and not tachypneic Auscultation: lungs clear to auscultation bilaterally and + diminished lung sounds; no crackles, no rhonchi and no wheezes Cardiovascular: RRR, no murmur, no edema Extremities: no calf tenderness Gastrointestinal (Abdomen): Inspection/Auscultation: abdomen normal to inspection; abdomen not distended Results & Data Vital Signs (Past 12 Hours) Vital Signs Temp Pulse Pulse Resp BP BP Pulse Ox 08/22/19 07:59 36.6 C 138 H 18 84/63 L 91 08/22/19 03:14 36.4 C L 137 H 137 H 18 104/74 96 08/21/19 23:47 36.3 C L 135 H 23 102/79 95 Laboratory Results WBC 9.63 K/uL (4.8-10.8) 08/22/19 05:44 RBC 4.82 M/uL (4.7-6.1) 08/22/19 05:44 Hgb 14.7 g/dL (14.0-18.0) 08/22/19 05:44 Hct 43.1 % (42-52) 08/22/19 05:44 MCV 89.4 fL (80-100) 08/22/19 05:44 MCH 30.5 pg (25-34) 08/22/19 05:44 MCHC 34.1 g/dL (32-36) 08/22/19 05:44 RDW Std Deviation 43.2 fL (36.4-46.3) 08/22/19 05:44 RDW Coeff of Rachelle 13.2 % (11.5-14.5) 08/22/19 05:44 Plt Count 185 K/uL (130-400) 08/22/19 05:44 MPV 10.2 fL (7.4-10.4) 08/22/19 05:44 Immature Gran % (Auto) 0.2 % 08/22/19 05:44 Neut % (Auto) 74.3 % 08/22/19 05:44 Lymph % (Auto) 11.8 % 08/22/19 05:44 Tate % (Auto) 10.4 % 08/22/19 05:44 Eos % (Auto) 2.9 % 08/22/19 05:44 Baso % (Auto) 0.4 % 08/22/19 05:44 Immature Gran # (Auto) 0.02 K/uL (0.00-0.02) 08/22/19 05:44 Neut # (Auto) 7.15 K/uL (1.4-6.5) H 08/22/19 05:44 Lymph # (Auto) 1.14 K/uL (1.2-3.4) L 08/22/19 05:44 Tate # (Auto) 1.00 K/uL (0.11-0.59) H 08/22/19 05:44 Eos # (Auto) 0.28 K/uL (0-0.5) 08/22/19 05:44 Baso # (Auto) 0.04 K/uL (0-0.2) 08/22/19 05:44 PT 11.1 Seconds (9.0-12.0) 08/21/19 16:00 INR 1.1 (0.9-1.1) 08/21/19 16:00 APTT 53.7 Seconds (21.0-31.0) H* 08/21/19 22:57 PTT Ratio 2.0 08/21/19 22:57 Sodium 136 mmol/L (136-145) 08/22/19 05:44 Potassium 4.0 mmol/L (3.5-5.1) 08/22/19 05:44 Chloride 104 mmol/L (98-107) 08/22/19 05:44 Carbon Dioxide 25 mmol/L (21-32) 08/22/19 05:44 Anion Gap 7.0 (3-11) 08/22/19 05:44 BUN 16 mg/dl (7-18) 08/22/19 05:44 Creatinine 0.91 mg/dl (0.6-1.4) 08/22/19 05:44 Est Cr Clr Drug Dosing 64.6 ml/min 08/22/19 05:44 Est GFR ( Amer) 90.6 08/22/19 05:44 Est GFR (Non-Af Amer) 78.2 08/22/19 05:44 BUN/Creatinine Ratio 18.0 (10-20) 08/22/19 05:44 Glucose 113 mg/dl (70-99) H 08/22/19 05:44 Calcium 8.3 mg/dl (8.5-10.1) L 08/22/19 05:44 Magnesium 2.0 mg/dl (1.8-2.4) 08/22/19 05:44 Total Bilirubin 1.1 mg/dl (0.2-1) H 08/22/19 05:44 AST 12 U/L (15-37) L 08/22/19 05:44 ALT 8 U/L (12-78) L 08/22/19 05:44 Alkaline Phosphatase 70 U/L (45-117) 08/22/19 05:44 POC Troponin I < 0.03 ng/ml (0-0.045) 08/21/19 15:12 Troponin I < 0.015 ng/ml (0-0.045) 08/21/19 14:59 Total Protein 6.7 gm/dl (6.4-8.2) 08/22/19 05:44 Albumin 3.2 gm/dl (3.4-5.0) L 08/22/19 05:44 Globulin 3.5 gm/dl (2.5-4.0) 08/22/19 05:44 Albumin/Globulin Ratio 0.9 (0.9-2) 08/22/19 05:44 PG Care Time/CCT Total # of Minutes Spent Total Time Spent with Patient: Total time spent is greater than 50% in coordination of care (as documented) at patient's floor/unit and/or counseling patient: Resident Activity Tracking Resident Involvement: Resident Care Provided Care Provided: Adult Hospital Medicine (1) Pulmonary embolism Acute cor pulmonale presence: without acute cor pulmonale Chronicity: unspecified Pulmonary embolism type: unspecified Qualified Code(s): I26.99 - Other pulmonary embolism without acute cor pulmonale
[2019-08-22] MEDS: HEPARIN SODIUM/DEXTROSE 25,000 UNITS/500 ML BAG IV SCH (11:26)
[2019-08-22] MEDS: GABAPENTIN 400 MG CAP PO SCH (19:37)
[2019-08-22] MEDS: clonazePAM 0.5 MG TAB PO SCH (19:39)
[2019-08-23] MEDS: CARBIDOPA/LEVODOPA 25/100MG TAB PO SCH ×6 (02:33→20:32)
[2019-08-23] MEDS: ENTACAPONE 200 MG TAB PO SCH ×6 (02:33→20:31)
[2019-08-23] MEDS: HEPARIN SODIUM/DEXTROSE 25,000 UNITS/500 ML BAG IV SCH (05:27)
[2019-08-23] MEDS: SODIUM CHLORIDE 0.9% 1000ML 1,000 ML IV SCH ×2 (05:29→13:44)
[2019-08-23 07:15] LABS: Partial Thromboplastin Ratio 1.8
[2019-08-23 07:46] LABS: Partial Thromboplastin Time 48.7 Seconds (21.0-31.0)
[2019-08-23] MEDS: CEROVITE ADV FORMULA TAB PO SCH (08:22)
[2019-08-23] MEDS: MIRABEGRON ER 25 MG TAB PO SCH (08:22)
[2019-08-23] MEDS: RIVASTIGMINE TARTRATE 1.5 MG CAP PO SCH ×2 (08:22→20:32)
[2019-08-23] MEDS: POLYETHYLENE (MIRALAX) 17 GM PACK PO SCH (08:25)
--- NOTE | 2019-08-23 08:50 | Family Medicine Progress Note ---
Date of Service August 23, 2019 Assessment & Plan (1) Atrial fibrillation with RVR: - Patient's hypotension yesterday improved with fluid management however HR remained elevated in 130's/140's so an EKG was ordered this morning. - initial rhythm strips showed Atrial Flutter which converted to Atrial Fibrillation with RVR by 11 AM. - Given that the patient was already on a heparin drip for PE management, rate control was the primary concern. - 25 mg Metoprolol BID started between 11 AM - Noon. Patient's heart rate remained high requiring a PRN 25 mg Metoprolol. - additional bolus 500 mg NS IVF given to ensure support of BP control in case patient would require additional rate control that would bottom out his pressures. - TTE ordered to determine presence or absence of atrial thrombus and evaluate cardiac function - converting from heparin drip to Eliquis 10 mg per day x 7 days starting tonight at 9 pm. After 7-day protocol patient will switch to 5 mg twice a day for the next 3 to 4 months Anticoagulation protocol after a PE. After that time he may go to 2.5 mg twice a day to cover anticoagulation protocol for his atrial fibrillation. -Given multiple runs of tachycardia into the 130s and 140s despite multiple doses of 25 mg metoprolol p.o. and a 500 mL saline fluid bolus will start patient on a diltiazem drip to ensure proper rate control prior to discharge. Present on Admission?: No (2) Pulmonary embolism: - no hx fall or inciting event. Unprovoked DVT + PE - multiple pulmonary emboli found on CTA imaging in right pulmonary artery, distal L main pulmonary artery and the lower left lobe arterial system - venous doppler scan of bilateral lower extremities found: - nearly occlusive DVTs in R common femoral vein and deep femoral vein - intermittently non-occlusive DVT in R femoral vein - Occlusive DVT in R and L peroneal and posterior tibial veins - patient has been placed on a heparin drip for clot management - will likely be converted to a DOAC at discharge as he would need lifetime therapy of bloodthinners and not necessarily benefit from IVC placement. - He has also been hypotensive and tachycardic likely secondary to being intravascularly dry and having increased right heart strain with the multiple emboli - patient received a 500 NS bolus on the wards which he responded well to. - 1 L NS drip started at 125 ml/Hr - additional 500 ml NS bolus added since BP natty to only 93/67 from 84/63 (3) Acute respiratory failure with hypoxia: - Satting well on room air this morning - no complaints of shortness of breath at this point Supervising Physician Co-Signing Physician Notes I personally examined the patient and verified all devi points of history and exam, discussed case, and agree with decision making with Dr Garcia. Feeling pretty good. No chest pain or shortness of breath. Has been tachycardic Vitals noted, in general he is awake and alert pleasant no distress. HEENT normal cephalic atraumatic mucous members are moist. Breathing unlabored no accessory muscle use good effort. Skin shows no rashes no pallor or icterus. Pulmonary embolifortunately overall fairly stable, does have a little bit of onset of hemodynamics, but they are improving with fluids. Continue heparin, anticipate transition to direct oral anticoagulant tomorrow if he continues to look this good. Tachycardiarelated to PE. While initially this is sinus tach related to the PE, he is flipped over to A. fib and RVR, still provoked by the PE, but needing to be managed as its own entity. Initiated beta-blockade, he is already anticoagulated for the PE, may need to escalate to diltiazem drip, but will continue to follow closely. Given that is new onset A. fib, will check echo and TSH 2. Hypotensionrelated to PEimproved with fluids. Now stable. Otherwise as above Subjective No acute overnight events. This morning Mr. Miguel continues to feel well. He denies any chest pain, palpitations, chest tightness, shortness of breath or trouble breathing. He is tolerating a diet well and has no other complaints of headache/blurry vision/abdominal pain/calf tenderness. Review of Systems Review of Systems: See HPI Physical Exam Constitutional: well developed, + thin, cooperative and comfortable Respiratory: normal respiratory effort and able to speak in complete sentences; no respiratory distress, no retractions, no cough and not tachypneic Auscultation: lungs clear to auscultation bilaterally and + diminished lung sounds; no crackles, no rhonchi and no wheezes Cardiovascular: RRR, no murmur, no edema Extremities: no calf tenderness Gastrointestinal (Abdomen): Inspection/Auscultation: abdomen normal to inspection; abdomen not distended Results & Data Vital Signs (Past 12 Hours) Vital Signs Temp Pulse Resp BP Pulse Ox 08/23/19 07:30 36.4 C L 136 H 22 110/81 96 08/23/19 04:00 36.8 C 136 H 21 110/83 94 08/22/19 23:26 37.2 C 135 H 23 94/72 L 95 Laboratory Results WBC 9.63 K/uL (4.8-10.8) 08/22/19 05:44 RBC 4.82 M/uL (4.7-6.1) 08/22/19 05:44 Hgb 14.7 g/dL (14.0-18.0) 08/22/19 05:44 Hct 43.1 % (42-52) 08/22/19 05:44 MCV 89.4 fL (80-100) 08/22/19 05:44 MCH 30.5 pg (25-34) 08/22/19 05:44 MCHC 34.1 g/dL (32-36) 08/22/19 05:44 RDW Std Deviation 43.2 fL (36.4-46.3) 08/22/19 05:44 RDW Coeff of Rachelle 13.2 % (11.5-14.5) 08/22/19 05:44 Plt Count 185 K/uL (130-400) 08/22/19 05:44 MPV 10.2 fL (7.4-10.4) 08/22/19 05:44 Immature Gran % (Auto) 0.2 % 08/22/19 05:44 Neut % (Auto) 74.3 % 08/22/19 05:44 Lymph % (Auto) 11.8 % 08/22/19 05:44 Whitman % (Auto) 10.4 % 08/22/19 05:44 Eos % (Auto) 2.9 % 08/22/19 05:44 Baso % (Auto) 0.4 % 08/22/19 05:44 Immature Gran # (Auto) 0.02 K/uL (0.00-0.02) 08/22/19 05:44 Neut # (Auto) 7.15 K/uL (1.4-6.5) H 08/22/19 05:44 Lymph # (Auto) 1.14 K/uL (1.2-3.4) L 08/22/19 05:44 Whitman # (Auto) 1.00 K/uL (0.11-0.59) H 08/22/19 05:44 Eos # (Auto) 0.28 K/uL (0-0.5) 08/22/19 05:44 Baso # (Auto) 0.04 K/uL (0-0.2) 08/22/19 05:44 PT 11.1 Seconds (9.0-12.0) 08/21/19 16:00 INR 1.1 (0.9-1.1) 08/21/19 16:00 APTT 48.7 Seconds (21.0-31.0) H* 08/23/19 06:10 PTT Ratio 1.8 08/23/19 06:10 Sodium 136 mmol/L (136-145) 08/22/19 05:44 Potassium 4.0 mmol/L (3.5-5.1) 08/22/19 05:44 Chloride 104 mmol/L (98-107) 08/22/19 05:44 Carbon Dioxide 25 mmol/L (21-32) 08/22/19 05:44 Anion Gap 7.0 (3-11) 08/22/19 05:44 BUN 16 mg/dl (7-18) 08/22/19 05:44 Creatinine 0.91 mg/dl (0.6-1.4) 08/22/19 05:44 Est Cr Clr Drug Dosing 64.6 ml/min 08/22/19 05:44 Est GFR ( Amer) 90.6 08/22/19 05:44 Est GFR (Non-Af Amer) 78.2 08/22/19 05:44 BUN/Creatinine Ratio 18.0 (10-20) 08/22/19 05:44 Glucose 113 mg/dl (70-99) H 08/22/19 05:44 Calcium 8.3 mg/dl (8.5-10.1) L 08/22/19 05:44 Magnesium 2.0 mg/dl (1.8-2.4) 08/22/19 05:44 Total Bilirubin 1.1 mg/dl (0.2-1) H 08/22/19 05:44 AST 12 U/L (15-37) L 08/22/19 05:44 ALT 8 U/L (12-78) L 08/22/19 05:44 Alkaline Phosphatase 70 U/L (45-117) 08/22/19 05:44 POC Troponin I < 0.03 ng/ml (0-0.045) 08/21/19 15:12 Troponin I < 0.015 ng/ml (0-0.045) 08/21/19 14:59 Total Protein 6.7 gm/dl (6.4-8.2) 08/22/19 05:44 Albumin 3.2 gm/dl (3.4-5.0) L 08/22/19 05:44 Globulin 3.5 gm/dl (2.5-4.0) 08/22/19 05:44 Albumin/Globulin Ratio 0.9 (0.9-2) 08/22/19 05:44 TSH 2.340 uIu/ml (0.300-4.500) 08/23/19 12:04 PG Care Time/CCT Total # of Minutes Spent Total Time Spent with Patient: Total time spent is greater than 50% in coordination of care (as documented) at patient's floor/unit and/or counseling patient: Resident Activity Tracking Resident Involvement: Resident Care Provided Care Provided: Adult Hospital Medicine (1) Pulmonary embolism Acute cor pulmonale presence: without acute cor pulmonale Chronicity: unspecified Pulmonary embolism type: unspecified Qualified Code(s): I26.99 - Other pulmonary embolism without acute cor pulmonale
[2019-08-23] MEDS: METOPROLOL TARTRATE 25 MG TAB PO SCH ×2 (12:28→13:41)
[2019-08-23] MEDS ORDERED: METOPROLOL TARTRATE 25 MG TAB PO PRN (13:21)
[2019-08-23] MEDS ORDERED: SODIUM CHLORIDE 0.9% 500 ML IV ONE (14:15)
[2019-08-23] MEDS ORDERED: dilTIAZem HCl 5 MG/ML 5 ML VIAL IV STA (18:26)
[2019-08-23] MEDS: dilTIAZem HCL 125 MG in DEXTROSE 5% 100 ML IV SCH (20:31)
[2019-08-23] MEDS: APIXABAN 2.5 MG TAB PO SCH (20:31)
[2019-08-23] MEDS: GABAPENTIN 400 MG CAP PO SCH (20:33)
[2019-08-23] MEDS: clonazePAM 0.5 MG TAB PO SCH (20:33)
[2019-08-24] MEDS: SODIUM CHLORIDE 0.9% 1000ML 1,000 ML IV SCH ×4 (00:45→17:11)
[2019-08-24] MEDS: ENTACAPONE 200 MG TAB PO SCH ×6 (02:35→21:22)
[2019-08-24] MEDS: CARBIDOPA/LEVODOPA 25/100MG TAB PO SCH ×6 (02:35→21:23)
[2019-08-24 06:43] LABS: Hematocrit (blood only) 40.4 % (42-52); Hemoglobin 13.3 g/dL (14.0-18.0); Mean Corpuscular Hemoglobin 30.2 pg (25-34); Mean Corpuscular Hgb Conc 32.9 g/dL (32-36); Mean Corpuscular Volume 91.8 fL (80-100); Mean Platelet Volume 10.1 fL (7.4-10.4); Platelet Count 176 K/uL (130-400); RDW Coefficient of Variation 13.3 % (11.5-14.5); RDW Standard Deviation 44.8 fL (36.4-46.3); White Blood Count 8.48 K/uL (4.8-10.8)
[2019-08-24 06:52] LABS: INR 1.1 (0.9-1.1); Partial Thromboplastin Ratio 1.1; Partial Thromboplastin Time 30.3 Seconds (21.0-31.0); Prothrombin Time 11.2 Seconds (9.0-12.0)
[2019-08-24 07:17] LABS: BUN Creatinine Ratio 14.1 (10-20); Calcium 8.2 mg/dl (8.5-10.1); Creatinine Clr Calc Pharmacy 65.6 ml/min; Est GFR (African American) 81.9; Est GFR (Non-African American) 70.6; Potassium 3.8 mmol/L (3.5-5.1)
[2019-08-24] MEDS: CEROVITE ADV FORMULA TAB PO SCH (08:50)
[2019-08-24] MEDS: RIVASTIGMINE TARTRATE 1.5 MG CAP PO SCH ×2 (08:50→21:23)
[2019-08-24] MEDS: MIRABEGRON ER 25 MG TAB PO SCH (08:51)
[2019-08-24] MEDS: APIXABAN 2.5 MG TAB PO SCH ×2 (08:52→21:23)
[2019-08-24] MEDS: POLYETHYLENE (MIRALAX) 17 GM PACK PO SCH (09:02)
[2019-08-24] MEDS ORDERED: ALBUT/IPRATROP 3MG/0.5MG NEB 3 ML VIAL NEB STA (09:46)
--- NOTE | 2019-08-24 10:19 | XRay Report ---
XR chest 1V portable HISTORY: Short of breath. COMPARISON: Chest 03/30/2019. FINDINGS: No focal lung consolidations to suggest pneumonia. No evidence for pulmonary edema. The hea rt remains mildly enlarged. There is a tortuous thoracic aorta, unchanged. 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 IMPRESSION: No significant change compared to the prior study. No acute process. Electronically signed by: David Day M.D. 08/24/2019 10:18 AM
[2019-08-24] MEDS: dilTIAZem HCL 125 MG in DEXTROSE 5% 100 ML IV SCH ×2 (12:14→19:12)
[2019-08-24] MEDS: dilTIAZem HCL 120 MG CAPCR PO SCH (14:50)
--- NOTE | 2019-08-24 15:25 | Family Medicine Progress Note ---
Date of Service August 24, 2019 Assessment & Plan (1) Pulmonary embolism: 83 y/o M with h/o Parkinson's came with worsening shortness of breath noted to have acute PE Pulmonary Embolism due to bilateral DVT - no hx of inciting event. Unprovoked DVT + PE - multiple pulmonary emboli found on CTA imaging in right pulmonary artery, distal L main pulmonary artery and the lower left lobe arterial system - venous doppler scan of bilateral lower extremities found: - nearly occlusive DVTs in R common femoral vein and deep femoral vein - intermittently non-occlusive DVT in R femoral vein - Occlusive DVT in R and L peroneal and posterior tibial veins - He has also been hypotensive and tachycardic likely secondary to being intravascularly dry and having increased right heart strain with the multiple emboli Atrial fibrillation with RVR, new onset - started on a diltiazem drip 08/23, with a goal rate of 90-100 - was on a drip of 10 ml/hr most of today (08/24) - transitioned to Diltiazem 120 ER once a day in conjunction with pharmacy rec - was hypertensive to 130's and restarted the diltiazem drip, will increase the oral dose of diltiazem tomorrow and attempt to discontinue the drip then. - will continue to monitor and adjust as needed - On Eliquis 10 mg BID then, 5 mg BID 3-4 months then, 2.5 mg BID 3-4 months Possible aspiration -consult speech therapy Acute respi failure - resolved. Parkinsons - levodopa, rivastigmine, Entacapone, mirabegron Anxiety -clonazepam hs Fluid: d/c IVF DVT: Apixaban Code: conditional compression no, airway yes, bent yes, defib. no, IV meds yes (2) Atrial fibrillation with RVR: (3) Parkinson disease: (4) Hyperlipidemia: Supervising Physician Co-Signing Physician Notes Resident Physician Supervision Note: I independently interviewed and examined the patient and verified the devi history and physical, reviewed labs and image studies, discussed the case with the resident Dr. Godwin and agree with the findings and care plan. Subjective Mr. Miguel was not having any pain today. stated that he was sleeping more frequently and that he was not as oriented today. She informed me that he was able to use a treadmill prior to admission and that he would travel around on his scooter. They live at [facility] in a skilled care facility. Physical Exam Constitutional: well nourished; no acute distress Respiratory: normal respiratory effort, lungs clear to auscultation Cardiovascular: RRR, no murmur, no edema Gastrointestinal (Abdomen): normal bowel sounds, soft, nontender, no hepatosplenomegaly Skin: no rashes, warm and dry Psychiatric: Alert and oriented to person and place but unable to state the date, initially thought it was 1918, then agreed 2019 and thought that the month was September. Results & Data Vital Signs (Past 12 Hours) Vital Signs Temp Pulse Resp BP BP Pulse Ox 08/24/19 15:13 36.6 C 95 H 21 110/66 95 08/24/19 11:15 36.3 C L 97 H 16 111/68 96 08/24/19 10:36 82 18 95 08/24/19 07:15 36.8 C 97 H 18 94/76 L 95 08/24/19 03:26 36.6 C 101 H 19 105/67 95 PG Care Time/CCT Total # of Minutes Spent Total Time Spent with Patient: Total time spent is greater than 50% in coordination of care (as documented) at patient's floor/unit and/or counseling patient: (1) Pulmonary embolism Acute cor pulmonale presence: without acute cor pulmonale Chronicity: unspecified Pulmonary embolism type: unspecified Qualified Code(s): I26.99 - Other pulmonary embolism without acute cor pulmonale
[2019-08-24] MEDS ORDERED: dilTIAZem HCL 125 MG in DEXTROSE 5% 100 ML IV SCH (17:45)
[2019-08-24] MEDS: clonazePAM 0.5 MG TAB PO SCH (21:23)
[2019-08-24] MEDS: GABAPENTIN 400 MG CAP PO SCH (21:23)
[2019-08-25] MEDS: CARBIDOPA/LEVODOPA 25/100MG TAB PO SCH ×6 (03:16→20:54)
[2019-08-25] MEDS: ENTACAPONE 200 MG TAB PO SCH ×7 (03:16→20:53)
[2019-08-25] MEDS: SODIUM CHLORIDE 0.9% 1000ML 1,000 ML IV SCH ×2 (03:17→08:48)
[2019-08-25] MEDS: dilTIAZem HCL 125 MG in DEXTROSE 5% 100 ML IV SCH (05:11)
[2019-08-25 06:10] LABS: Hematocrit (blood only) 40.1 % (42-52); Hemoglobin 13.4 g/dL (14.0-18.0); Mean Corpuscular Hemoglobin 30.2 pg (25-34); Mean Corpuscular Hgb Conc 33.4 g/dL (32-36); Mean Corpuscular Volume 90.3 fL (80-100); Mean Platelet Volume 9.7 fL (7.4-10.4); Platelet Count 174 K/uL (130-400); RDW Coefficient of Variation 13.2 % (11.5-14.5); RDW Standard Deviation 43.2 fL (36.4-46.3); Red Blood Count 4.44 M/uL (4.7-6.1)
[2019-08-25 06:54] LABS: BUN Creatinine Ratio 15.4 (10-20); Calcium 8.3 mg/dl (8.5-10.1); Creatinine Clr Calc Pharmacy 71.8 ml/min; Est GFR (African American) 90.6; Est GFR (Non-African American) 78.2; Potassium 3.9 mmol/L (3.5-5.1)
[2019-08-25] MEDS: CEROVITE ADV FORMULA TAB PO SCH (08:02)
[2019-08-25] MEDS: RIVASTIGMINE TARTRATE 1.5 MG CAP PO SCH ×2 (08:02→20:52)
[2019-08-25] MEDS: MIRABEGRON ER 25 MG TAB PO SCH (08:03)
[2019-08-25] MEDS: APIXABAN 2.5 MG TAB PO SCH (08:03)
[2019-08-25] MEDS: dilTIAZem HCL 120 MG CAPCR PO SCH (08:04)
[2019-08-25] MEDS: POLYETHYLENE (MIRALAX) 17 GM PACK PO SCH (09:20)
[2019-08-25] MEDS ORDERED: dilTIAZem HCL 30 MG TAB PO STA (09:45)
--- NOTE | 2019-08-25 13:52 | Fluoroscopy Report ---
MODIFIED BARIUM SWALLOW CLINICAL HISTORY: assess for aspiration COMPARISON STUDY: Modified barium swallow August 24, 2016 and December 22, 2018. FLUOROSCOPY TIME: 2.1 minutes. TECHNIQUE: A modified barium swallow was performed in conjunction with Speech Pathology. The patient ingested varying consistencies of barium containing material. Video fluoroscopy was performed. FINDINGS: Multiple episodes of tracheal aspiration were noted with thin liquids. No aspiration was id entified with nectar thick liquids, pudding or crackers with paste. Moderate esophageal dysmotility w as noted. IMPRESSION: 1. Multiple episodes of tracheal aspiration with thin liquids. No aspiration with the remainder of th e consistencies. 2. Full recommendations by speech pathology to follow. 3. Moderate esophageal dysmotility. Electronically signed by: Kel Blanchard M.D. 08/25/2019 1:50 PM
[2019-08-25] MEDS ORDERED: dilTIAZem HCL 30 MG TAB PO SCH (14:00)
[2019-08-25] MEDS ORDERED: dilTIAZem HCl 60 MG TAB PO SCH (14:00)
--- NOTE | 2019-08-25 17:01 | Family Medicine Progress Note ---
Date of Service August 25, 2019 Assessment & Plan (1) Pulmonary embolism: 83 year old male with Parkinson w/ lumbar stenosis, admitted for PE d/t bilateral DVT Pulmonary Embolism due to bilateral DVT - CTA w/ findings of: Emboli of right pulmonary artery, distal L main pulmonary artery and the lower left lobe arterial system - venous doppler scan of bilateral lower extremities found: - nearly occlusive DVTs in R common femoral vein and deep femoral vein - intermittently non-occlusive DVT in R femoral vein - Occlusive DVT in R and L peroneal and posterior tibial veins - previously on Apixaban 10 mg BID D/C today - Started Warfarin 5 mg w/ a Lovenox bridge at 1.5 mg/kg (140mg) - will check INR and stop Lovenox when level is >2 Atrial fibrillation with RVR, new onset - goal heart rate of 90-100 - Diltiazem ER 120 mg this morning - given Diltiazem 60 mg as needed today (08/25) to maintain goal - will calculate the total dose over today (08/25) - will reinitiate Diltiazem ER based on total dose from today (08/25) Parkinson disease - continue home Sinemet 25/100 mg - continue home Rivastigmine 4.5 mg BID - continue home Entacapone 200 mg Acute respiratory distress - saturating well on room air, unable to speak in full sentences - CXR no significant change on 08/24 Possible concern of aspiration - speech evaluation w/ swallow study done today, diet order adjusted per rec. FEN: continue to monitor electrolytes, diet: regular slippery, thin liquid; avoid dry thick foods. DVT: Lovenox bridge to Warfarin Code: conditional compression no, airway yes, vent yes, defib. no, IV meds yes Supervising Physician Co-Signing Physician Notes Resident Physician Supervision Note: I independently interviewed and examined the patient and verified the devi history and physical, reviewed labs and image studies, discussed the case with the resident Dr. Godwin and agree with the findings and care plan. Subjective Mr. Miguel was not having any pain today. stated that he was sleeping more frequently and that he was not as oriented today. We discussed that the Apixaban would have a co-pay of 118 dollars and that the other option would be Warfarin with a bridge of Lovenox. After discussing what Warfarin management would look like decided to go with this option. They live at [facility] in a skilled care facility. Review of Systems Constitutional: no fever and no chills Respiratory: + cough admits shortness of breath Gastrointestinal: no nausea and no vomiting Genitourinary: no dysuria and no urinary frequency Neurologic: denies headache Physical Exam Respiratory: Auscultation: + wheezes lungs coarse with good air movement throughout Cardiovascular: slightly tachycardic w/ no m/r/g appreciated Gastrointestinal (Abdomen): normal bowel sounds, soft, nontender, no hepatosplenomegaly Inspection/Auscultation: no abdominal edema Skin: no rashes, warm and dry Neurologic: not confused alert and interactive Results & Data Vital Signs (Past 12 Hours) Vital Signs Temp Pulse Resp BP Pulse Ox 08/25/19 15:04 36.6 C 107 H 22 131/87 97 08/25/19 11:09 36.6 C 101 H 20 109/66 94 08/25/19 07:16 36.3 C L 136 H 20 137/84 94 PG Care Time/CCT Total # of Minutes Spent Total Time Spent with Patient: Total time spent is greater than 50% in coordination of care (as documented) at patient's floor/unit and/or counseling patient: Resident Activity Tracking Resident Involvement: Resident Care Provided Care Provided: Adult Hospital Medicine (1) Pulmonary embolism Acute cor pulmonale presence: without acute cor pulmonale Chronicity: unspecified Pulmonary embolism type: unspecified Qualified Code(s): I26.99 - Other pulmonary embolism without acute cor pulmonale
[2019-08-25] MEDS ORDERED: WARFARIN SOD 5 MG TAB PO ONE (17:59)
[2019-08-25] MEDS ORDERED: ENOXAPARIN 1.5 MG/KG SQ SCH (18:00)
[2019-08-25] MEDS ORDERED: dilTIAZem HCL 30 MG TAB PO ONE ×2 (18:38→19:00)
[2019-08-25] MEDS: ENOXAPARIN 150 MG/ML SYR SQ SCH (20:55)
[2019-08-25] MEDS: GABAPENTIN 400 MG CAP PO SCH (20:55)
[2019-08-25] MEDS: clonazePAM 0.5 MG TAB PO SCH (20:57)
[2019-08-26] MEDS ORDERED: dilTIAZem HCL 30 MG TAB PO ONE (01:00)
[2019-08-26] MEDS: ENTACAPONE 200 MG TAB PO SCH ×6 (02:23→20:29)
[2019-08-26] MEDS: CARBIDOPA/LEVODOPA 25/100MG TAB PO SCH ×6 (02:24→20:30)
[2019-08-26] MEDS ORDERED: dilTIAZem HCL 180 MG CAPCR PO SCH ×2 (03:15→09:00)
[2019-08-26 05:48] LABS: Hematocrit (blood only) 37.8 % (42-52); Hemoglobin 12.6 g/dL (14.0-18.0); Mean Corpuscular Hemoglobin 30.6 pg (25-34); Mean Corpuscular Hgb Conc 33.3 g/dL (32-36); Mean Corpuscular Volume 91.7 fL (80-100); Mean Platelet Volume 10.6 fL (7.4-10.4); Platelet Count 196 K/uL (130-400); RDW Coefficient of Variation 13.4 % (11.5-14.5); RDW Standard Deviation 44.5 fL (36.4-46.3); Red Blood Count 4.12 M/uL (4.7-6.1); White Blood Count 6.85 K/uL (4.8-10.8)
[2019-08-26 05:57] LABS: INR 1.2 (0.9-1.1); Prothrombin Time 11.9 Seconds (9.0-12.0)
[2019-08-26 06:19] LABS: BUN Creatinine Ratio 15.2 (10-20); Creatinine Clr Calc Pharmacy 69.5 ml/min; Est GFR (African American) 87.2; Est GFR (Non-African American) 75.2; Potassium 3.8 mmol/L (3.5-5.1)
[2019-08-26] MEDS: CEROVITE ADV FORMULA TAB PO SCH (08:33)
[2019-08-26] MEDS: MIRABEGRON ER 25 MG TAB PO SCH (08:34)
[2019-08-26] MEDS ORDERED: dilTIAZem HCL 300 MG CAPCR PO SCH (09:00)
[2019-08-26] MEDS: RIVASTIGMINE TARTRATE 1.5 MG CAP PO SCH ×2 (09:31→20:58)
[2019-08-26] MEDS: POLYETHYLENE (MIRALAX) 17 GM PACK PO SCH (09:31)
--- NOTE | 2019-08-26 10:43 | Family Medicine Progress Note ---
Date of Service August 26, 2019 Assessment & Plan (1) Pulmonary embolism: 83 year old male with Parkinson and lumbar stenosis, admitted for PE d/t bilateral DVT Acute bilateral pulmonary emboli due to bilateral lower extremity DVT's - CTA w/ findings of: PE - venous doppler scan of bilateral lower extremities found: DVT in bilateral lower extremity - continue to follow INR until therapeutic - started Warfarin 5 mg (08/25) w/ a Lovenox bridge at 1.5 mg/kg (140mg) Atrial fibrillation with RVR, new onset, This may be secondary to PE - continue to struggle in controlling rates - continue Diltiazem 180 mg BID - adding Lopressor 5 mg for breakthrough RVR - tomorrow morning will add 25 mg Metoprolol Succinate - if we continue to have difficulty controlling rate we will consult cardiology Parkinson disease - continue home Sinemet 25/100 mg - continue home Rivastigmine 4.5 mg BID - continue home Entacapone 200 mg - continue clonazepam QHS Lumbar stenosis - continue Gabapentin Acute respiratory distress, resolving - saturating well on room air - CXR no significant change on 08/24 - speech evaluation w/ swallow study done (08/25), diet order adjusted per rec. Possible concern for aspiration - swallow study showed aspiration with thin liquid - made adjustments to diet per speech recs. FEN: continue to monitor electrolytes, diet: regular slippery, thin liquid; avoid dry thick foods. DVT: Lovenox bridge to Warfarin Code: conditional: compression no, airway yes, vent yes, defib. no, IV meds yes Supervising Physician Co-Signing Physician Notes Resident Physician Supervision Note: I independently interviewed and examined the patient and verified the devi history and physical, reviewed labs and image studies, discussed the case with the resident Dr. Godwin and agree with the findings and care plan. Subjective Mr. Miguel was enjoying his breakfast this morning and stated that he was feeling well and did not have any issues overnight. He mentioned that he had a wheeze when he was breathing but no shortness of breath and no cough today. We discussed the plan to adjust his medications to lower his heart rate. I also informed him that we were working on transitioning to Warfarin as a blood thinner to treat his DVT PE. Review of Systems Constitutional: no fever and no chills Respiratory: no cough denies shortness of breath admits wheeze Cardiovascular: no chest pain and no palpitations Gastrointestinal: no nausea and no vomiting Genitourinary: no dysuria and no urinary frequency Physical Exam Constitutional: well developed and well nourished alert and oriented sitting in a chair next to his bed Respiratory: normal respiratory effort, lungs clear to auscultation Cardiovascular: Extremities: no edema tachycardic with no m/r/g appreciated Gastrointestinal (Abdomen): normal bowel sounds, soft, nontender, no hepatosplenomegaly Skin: no rashes, warm and dry Results & Data Vital Signs (Past 12 Hours) Vital Signs Temp Pulse Pulse Resp BP BP Pulse Ox 08/26/19 07:59 36.3 C L 136 H 22 116/75 97 08/26/19 03:26 36.4 C L 107 H 18 104/71 93 08/26/19 01:06 132 H 103/84 08/25/19 23:28 36.8 C 104 H 31 H 95/72 L 91 PG Care Time/CCT Total # of Minutes Spent Total Time Spent with Patient: Total time spent is greater than 50% in coordination of care (as documented) at patient's floor/unit and/or counseling patient: Resident Activity Tracking Resident Involvement: Resident Care Provided Care Provided: Adult Hospital Medicine (1) Pulmonary embolism Acute cor pulmonale presence: without acute cor pulmonale Chronicity: unspecified Pulmonary embolism type: unspecified Qualified Code(s): I26.99 - Other pulmonary embolism without acute cor pulmonale
[2019-08-26] MEDS ORDERED: METOPROLOL TARTRATE 1 MG/ML VIAL IV STA ×2 (11:20→15:03)
[2019-08-26] MEDS: WARFARIN SOD 5 MG TAB PO SCH (17:04)
[2019-08-26] MEDS ORDERED: dilTIAZem HCL 180 MG CAPCR PO ONE (18:00)
[2019-08-26] MEDS: METOPROLOL TARTRATE 1 MG/ML VIAL IV PRN ×2 (18:52→22:46)
[2019-08-26] MEDS: ENOXAPARIN 150 MG/ML SYR SQ SCH (20:29)
[2019-08-26] MEDS: GABAPENTIN 400 MG CAP PO SCH (20:32)
[2019-08-26] MEDS: clonazePAM 0.5 MG TAB PO SCH (20:38)
[2019-08-27] MEDS: METOPROLOL TARTRATE 1 MG/ML VIAL IV PRN ×2 (02:30→04:53)
[2019-08-27] MEDS: ENTACAPONE 200 MG TAB PO SCH ×6 (02:30→19:57)
[2019-08-27] MEDS: CARBIDOPA/LEVODOPA 25/100MG TAB PO SCH ×6 (02:30→19:56)
[2019-08-27 05:56] LABS: Hemoglobin 12.8 g/dL (14.0-18.0); Mean Corpuscular Hemoglobin 30.8 pg (25-34); Mean Corpuscular Hgb Conc 33.7 g/dL (32-36); Mean Corpuscular Volume 91.3 fL (80-100); Mean Platelet Volume 10.1 fL (7.4-10.4); Platelet Count 215 K/uL (130-400); RDW Coefficient of Variation 13.6 % (11.5-14.5); RDW Standard Deviation 44.7 fL (36.4-46.3); Red Blood Count 4.16 M/uL (4.7-6.1); White Blood Count 5.53 K/uL (4.8-10.8)
[2019-08-27 06:06] LABS: INR 1.1 (0.9-1.1); Prothrombin Time 11.3 Seconds (9.0-12.0)
[2019-08-27 06:27] LABS: Calcium 8.5 mg/dl (8.5-10.1); Creatinine Clr Calc Pharmacy 68.1 ml/min; Est GFR (Non-African American) 73.3; Potassium 3.8 mmol/L (3.5-5.1)
[2019-08-27] MEDS: dilTIAZem HCL 180 MG CAPCR PO SCH ×2 (06:32→19:57)
[2019-08-27] MEDS ORDERED: dilTIAZem HCL 180 MG CAPCR PO SCH (09:00)
[2019-08-27] MEDS ORDERED: METOPROLOL SUCC 25MG EXT REL TAB PO SCH (09:00)
[2019-08-27] MEDS: MIRABEGRON ER 25 MG TAB PO SCH (09:01)
[2019-08-27] MEDS: CEROVITE ADV FORMULA TAB PO SCH (09:02)
[2019-08-27] MEDS: POLYETHYLENE (MIRALAX) 17 GM PACK PO SCH (09:10)
[2019-08-27] MEDS ORDERED: METOPROLOL TARTRATE 50 MG TAB PO STA (09:10)
[2019-08-27] MEDS: RIVASTIGMINE TARTRATE 1.5 MG CAP PO SCH ×2 (09:57→19:58)
[2019-08-27] MEDS ORDERED: METOPROLOL TARTRATE 25 MG TAB PO SCH (10:15)
--- NOTE | 2019-08-27 11:23 | Cardiology Consultation ---
Date of Consultation August 27, 2019 Assessment & Plan (1) Atrial flutter: At least a good portion of his rhythm is atrial flutter, there are times when I think it is atrial fibrillation but when his heart rate is rapid it is very regular and consistent with atrial flutter with 2-1 AV conduction. With a ventricular response of 130 bpm it may be very difficult to rate control his atrial flutter without causing bradycardia. I think we should try that today but it may be difficult. The other option is cardioversion. He ate today, and it may have been a month that he has had symptoms suggestive of the arrhythmia (or the PE possibly) so we would have to do a MARK if we are going to do cardioversion. I would recommend trying rate control today, we can revisit the situation this afternoon and if he remains difficult to control we should plan cardioversion in the morning following a MARK to exclude left atrial thrombus. I discussed this with the patient his and they are agreeable. (2) Atrial fibrillation with RVR: At least some of his rhythm appears to be atrial fibrillation, there is a twelve-lead electrocardiogram which looks like atrial fibrillation and during atrial fibrillation his rate appears better controlled. This is not unusual. (3) Pulmonary embolism: He presented with a diagnosis of pulmonary emboli, identified on CT scanning, and he had associated shortness of breath. He will need anticoagulation for this as well as his atrial fibrillation. I cannot say whether this was part of his presentation in atrial fibrillation/flutter or whether it is coincidental. He likely should remain on long-term anticoagulation if possible. (4) Anticoagulant prescribed: He was initially on Eliquis, now he is being transitioned to warfarin I believe because of cost. If that is the reason we may want to investigate further to see whether Eliquis cannot be used, it is the preferred drug for the atrial arrhythmia and especially in view of his history of falling I think would be preferable to warfarin. History of Present Illness Reason for Consultation: Atrial fibrillation or flutter with a rapid heart rate Attending Physician: Norah Zacarias MD History of Present Illness This is a 83-year-old male with a history of hypercholesterolemia and Parkinson's and a more recent history of shortness of breath although it was not obvious. He reports being somewhat short of breath for about a month before his presentation here on August 21, 2019, his noted that his breathing was not quite normal for about the same amount of time but they attributed it to his Parkinson's. He was seen at [facility] for an unrelated issue and it was observed that he was short of breath, evaluation subsequently noted that he had bilateral pulmonary emboli and was also in atrial fibrillation or flutter. He was admitted, I believe there was some discussion about anticoagulation due to his history of falling but he has been anticoagulated here in the hospital. His initial electrocardiogram looked like atrial flutter, a subsequent one is little hard to read but looks like atrial fibrillation, and attempts at rate control have not been very successful. He was initially on intravenous diltiazem, however that was switched to oral with inadequate rate control and oral diltiazem 180 mg twice daily plus intravenous metoprolol was still not successful in controlling the rate. At the time of my evaluation this morning he had no awareness of his rhythm, he thinks he might of felt a little unusual for the last month or so but cannot really describe it so he may have some awareness of the arrhythmia. He cannot be specific about the time other than he felt odd for perhaps a month. He has no other symptoms and has not had lightheadedness or dizziness (he has fallen but that may be due to his Parkinson's). Allergies Allergy/AdvReac Type Severity Reaction Status Date / Time simvastatin Allergy Unknown Verified 08/21/19 15:34 Home Medications Home Medications Medication Instructions Recorded Confirmed Type acetaminophen [Tylenol] 650 mg PO Q4 PRN 08/21/19 08/21/19 History carbidopa-levodopa 1 tab PO UD PRN 08/21/19 08/21/19 History gxgounpvd-cycsjslt-wooltwyovd 1 tab PO .5XSDAY 08/21/19 08/21/19 History [Stalevo 150] ylnsgkdvq-hzgfkldt-bhaiuagwaa 1 tab PO DAILY 08/21/19 08/21/19 History [Stalevo 150] cholecalciferol (vitamin D3) 2,000 unit PO DAILY 08/21/19 08/21/19 History [Vitamin D3] clonazepam [Klonopin] 1.5 mg PO HS 08/21/19 08/21/19 History gabapentin 400 mg PO HS 08/21/19 08/21/19 History magnesium hydroxide [Milk of 30 ml PO Q OTHER DAY PRN 08/21/19 08/21/19 History Magnesia] mirabegron [Myrbetriq] 25 mg PO QAM 08/21/19 08/21/19 History polyethylene glycol 3350 [Miralax] 17 g PO DAILY 08/21/19 08/21/19 History rivastigmine tartrate 4.5 mg PO BID 08/21/19 08/21/19 History vitamins A,C,A-tahx-bvfwck 1 tab PO QAM 08/21/19 08/21/19 History [PreserVision AREDS] Patient History Medical History Lumbago (Chronic) Parkinson disease (Chronic) Hyperlipidemia (Chronic) Parkinson's disease (Chronic) Back pain (Resolved) Constipation (Resolved) Neurologic gait dysfunction (Resolved) Surgical History H/O knee surgery H/O shoulder surgery History of back surgery Family History Father Cerebral aneurysm Social History Preferred Language: Portuguese Communication Ability: Effective Ammonia Still Operator Required: No Beliefs That Will Affect Care: None Current Living Situation: [facility] Current Living Situation Comment: independent living at [facility] current occupational status: retired Feels Safe at Home: Yes Smoking Status: Never smoker Hx Alcohol Use: Yes Alcohol type: wine Alcohol Intake Frequency: Rarely Hx Substance Use: No Dental Care, Regularly: Yes Physical Activity Frequency: Daily Seatbelt Use: always Physical Exam Physical Exam: Constitutional: Alert, cooperative and in no distress. He is somewhat slow to respond but seems to respond appropriately to questions. HEENT: Unremarkable Neck: No jugular venous distention, carotid pulses are normal and equal bilaterally without bruits. Pulmonary: Clear to auscultation bilaterally. Cardiac: Regular rapid rhythm with no murmur, gallop or rub. Abdomen: Soft, nontender with normal bowel sounds. Extremities: +1 bilateral pretibial edema. Distal pulses intact. Neurologic: No focal findings. Gait is steady. Skin: No rash, ecchymoses or petechiae. Results & Data Vital Signs (Past 12 Hours) Vital Signs Temp Pulse Pulse Pulse Resp BP BP 08/27/19 07:16 36.8 C 130 H 18 105/78 08/27/19 04:53 132 H 103/74 08/27/19 04:24 36.6 C 130 H 22 101/79 08/27/19 02:30 132 H 18 111/87 08/27/19 00:01 92 H 08/26/19 23:34 37.1 C 87 22 107/62 Pulse Ox 08/27/19 07:16 95 08/27/19 04:53 08/27/19 04:24 95 08/27/19 02:30 08/27/19 00:01 08/26/19 23:34 94 Diagnostic Findings His presenting electrocardiogram on August 21, 2019 at 1445 shows atrial flutter with 2-1 AV conduction and a heart rate of 132 bpm. A repeat electrocardiogram August 23, 2019 at 1046 is less clear, it is suggestive of atrial fibrillation although there are more discrete atrial waveforms at times. Telemetry: Review of telemetry shows periods of irregularity suggestive atrial fibrillation but other periods of extreme regularity at around 130 bpm very consistent with atrial flutter with 2-1 AV conduction. When the rhythm is 2-1 flutter waves are difficult to see but I believe are present. Use of beta- blockade intravenously appears to transiently decrease the heart rate. PG Care Time/CCT Total # of Minutes Spent Total Time Spent with Patient: Total time spent is greater than 50% in coordination of care (as documented) at patient's floor/unit and/or counseling patient: (1) Pulmonary embolism Acute cor pulmonale presence: without acute cor pulmonale Chronicity: unspecified Pulmonary embolism type: unspecified Qualified Code(s): I26.99 - Other pulmonary embolism without acute cor pulmonale
--- NOTE | 2019-08-27 14:18 | Family Medicine Progress Note ---
Date of Service August 27, 2019 Assessment & Plan (1) Pulmonary embolism: 83-year-old male with Parkinson and lumbar stenosis, admitted for PE d/t bilateral DVT. Acute bilateral pulmonary emboli due to bilateral lower extremity DVT's - continue Warfarin 5 mg w/ a Lovenox bridge at 1.5 mg/kg (140mg) - continue to follow INR until therapeutic Atrial flutter 2:1 block, previously atrial fibrillation with RVR, new onset, this may be secondary to PE - continue to be not rate controlled - cardiology consulted - continue Diltiazem 180 mg BID - patient received Metoprolol Succinate 25 mg this AM, additional 50 mg Metoprolol Tartrate was given, Metoprolol Tartrate 25 mg scheduled for 21:00 (total dose of Metoprolol of 100 mg today) - If rate not controlled today - to have MARK followed by cardioversion, - order placed for NPO after midnight Parkinson disease - continue home Sinemet 25/100 mg - continue home Rivastigmine 4.5 mg BID - continue home Entacapone 200 mg - continue clonazepam QHS Lumbar stenosis - continue Gabapentin Acute respiratory distress, resolving - saturating well on room air - CXR no significant change on 08/24 Possible concern for aspiration - swallow study showed aspiration with thin liquid - made adjustments to diet per speech recs. FEN: continue to monitor electrolytes, diet: regular slippery, thin liquid; avoid dry thick foods. DVT: Lovenox bridge to Warfarin Code: conditional: compression no, airway yes, vent yes, defib. no, IV meds yes (2) Anticoagulant prescribed: (3) Atrial flutter: (4) Acute respiratory failure with hypoxia: Supervising Physician Co-Signing Physician Notes Resident Physician Supervision Note: I independently interviewed and examined the patient and verified the devi history and physical, reviewed labs and image studies, discussed the case with the resident Dr. Godwin and agree with the findings and care plan. Subjective Mr. Miguel was lying in bed when we talked to him. Cardiology was in the room while we talked this morning. We discussed that Mr. Miguel was in Atrial flutter and that he would likely need to be cardioverted to return to a normal rhythm. In talking to Mr. Miguel it seems that he may have had symptoms of an abnormal rhythm for a month, but this was unclear. The patient and his appeared to understand this. We also discussed that we may need to have a echocardiogram to look at his heart for any clots in his heart. Cardiology may do this tomorrow. We also talked about continuing to manage Mr. Miguel with medications to see if we are able to control his rate. Review of Systems Respiratory: denies shortness of breath Cardiovascular: no chest pain and no palpitations Gastrointestinal: no nausea and no vomiting Genitourinary: no dysuria and no urinary frequency Physical Exam Constitutional: well developed, well nourished, cooperative and comfortable; no acute distress Respiratory: normal respiratory effort, lungs clear to auscultation Cardiovascular: RRR, no murmur, no edema Skin: no rashes, warm and dry Neurologic: Motor/Sensory: + tremor Results & Data Vital Signs (Past 12 Hours) Vital Signs Temp Pulse Pulse Pulse Resp BP BP 08/27/19 11:21 36.3 C L 88 18 117/72 08/27/19 07:16 36.8 C 130 H 18 105/78 08/27/19 04:53 132 H 103/74 08/27/19 04:24 36.6 C 130 H 22 101/79 08/27/19 02:30 132 H 18 111/87 Pulse Ox 08/27/19 11:21 95 08/27/19 07:16 95 08/27/19 04:53 08/27/19 04:24 95 08/27/19 02:30 PG Care Time/CCT Total # of Minutes Spent Total Time Spent with Patient: Total time spent is greater than 50% in coordina tion of care (as documented) at patient's floor/unit and/or counseling patient: (1) Pulmonary embolism Acute cor pulmonale presence: without acute cor pulmonale Chronicity: unspecified Pulmonary embolism type: unspecified Qualified Code(s): I26.99 - Other pulmonary embolism without acute cor pulmonale
[2019-08-27] MEDS: WARFARIN SOD 5 MG TAB PO SCH (16:39)
[2019-08-27] MEDS: ENOXAPARIN 150 MG/ML SYR SQ SCH (20:00)
[2019-08-27] MEDS: GABAPENTIN 400 MG CAP PO SCH (20:01)
[2019-08-27] MEDS: clonazePAM 0.5 MG TAB PO SCH (20:05)
[2019-08-27] MEDS ORDERED: METOPROLOL TARTRATE 25 MG TAB PO ONE (21:00)
[2019-08-28] MEDS: CARBIDOPA/LEVODOPA 25/100MG TAB PO SCH ×6 (02:53→20:41)
[2019-08-28] MEDS: ENTACAPONE 200 MG TAB PO SCH ×6 (02:53→20:41)
[2019-08-28 06:27] LABS: INR 1.2 (0.9-1.1); Prothrombin Time 11.8 Seconds (9.0-12.0)
[2019-08-28 06:52] LABS: BUN Creatinine Ratio 27.6 (10-20); Calcium 8.3 mg/dl (8.5-10.1); Creatinine Clr Calc Pharmacy 73.1 ml/min; Est GFR (African American) 92.3; Est GFR (Non-African American) 79.6; Potassium 3.8 mmol/L (3.5-5.1)
[2019-08-28] MEDS: MIRABEGRON ER 25 MG TAB PO SCH (07:39)
[2019-08-28] MEDS: CEROVITE ADV FORMULA TAB PO SCH (07:39)
[2019-08-28] MEDS: dilTIAZem HCL 180 MG CAPCR PO SCH ×2 (07:39→20:42)
[2019-08-28] MEDS: RIVASTIGMINE TARTRATE 1.5 MG CAP PO SCH ×2 (07:40→20:43)
--- NOTE | 2019-08-28 09:37 | Cardiology Progress Note ---
Date of Service August 28, 2019 Assessment & Plan (1) Atrial flutter: At least a good portion of his rhythm is atrial flutter, there are times when I think it is atrial fibrillation but when his heart rate is rapid it is very regular and consistent with atrial flutter with 2-1 AV conduction. With a slow ventricular response of 130 bpm it is often difficult to titrate AV block to control the heart rate, however with a combination of diltiazem and metoprolol yesterday we did have good heart rate control. I think we should continue with this strategy. He received 25 mg of metoprolol succinate yesterday morning, I gave him 50 mg of metoprolol tartrate and his heart rate was well controlled throughout the day. I gave him 25 mg of metoprolol tartrate in the evening yesterday but that did not affect his heart rate. It appears that he will need around 100 mg daily of metoprolol, so I am going to give him a 100 mg tablet of metoprolol succinate today and we can see if that controls his heart rate this morning. If it does I suspect that we will be adequate. We do not need perfect heart rate control as I would consider this temporary. The other option is cardioversion sooner rather than later, I would like to convert his rhythm once he is stabilized on anticoagulation but I would prefer not to do a MARK guided cardioversion unless we need to. I am therefore going to let him eat today. Based on his twelve-lead electrocardiogram his flutter appears atypical, it does not have the characteristic sawtooth pattern inferiorly. That may make it more difficult to ablate, although that does remain an option but certainly would not consider that at this time. (2) Atrial fibrillation with RVR: At least some of his rhythm appears to be atrial fibrillation, there is a twelve-lead electrocardiogram which looks like atrial fibrillation and during atrial fibrillation his rate appears better controlled. This is not unusual. Most of the time I believe he is in atrial flutter. (3) Pulmonary embolism: He presented with a diagnosis of pulmonary emboli, identified on CT scanning, and he had associated shortness of breath. He will need anticoagulation for this as well as his atrial fibrillation. I cannot say whether this was part of his presentation in atrial fibrillation/flutter or whether it is coincidental. He likely should remain on long-term anticoagulation if possible. (4) Anticoagulant prescribed: He was initially on Eliquis, now he is being transitioned to warfarin I believe because of cost. If that is the reason we may want to investigate further to see whether Eliquis cannot be used, it is the preferred drug for the atrial arrhythmia and especially in view of his history of falling I think would be preferable to warfarin. Subjective He seems to be feeling relatively well, he does not seem to have symptoms related to his arrhythmia. Physical Exam Physical Exam: Constitutional: Alert, cooperative and in no distress. He is somewhat slow to respond but seems to respond appropriately to questions. HEENT: Unremarkable Neck: No jugular venous distention, carotid pulses are normal and equal bilaterally without bruits. Pulmonary: Clear to auscultation bilaterally. Cardiac: Regular rapid rhythm with no murmur, gallop or rub. Abdomen: Soft, nontender with normal bowel sounds. Extremities: +1 bilateral pretibial edema. Distal pulses intact. Neurologic: No focal findings. Gait is steady. Skin: No rash, ecchymoses or petechiae. Results & Data Vital Signs (Past 12 Hours) Vital Signs Temp Pulse Pulse Pulse Resp BP Pulse Ox 08/28/19 08:18 131 H 08/28/19 07:12 36.4 C L 130 H 15 109/83 95 08/28/19 04:01 36.3 C L 129 H 28 H 129/89 93 08/28/19 00:00 96 H 08/27/19 23:29 36.3 C L 127 H 21 109/78 95 Diagnostic Findings Electrocardiogram this morning: Atrial flutter with 2-1 AV conduction. It is not obvious that this is atrial flutter, however given his history I am certain that it is. It is probably an atypical atrial flutter. Telemetry: His heart rate was well controlled from yesterday morning until 2 AM, he has been in atrial flutter with 2-1 AV conduction since 2 AM. Heart rate of 130 bpm while in 2-1 AV conduction. PG Care Time/CCT Total # of Minutes Spent Total Time Spent with Patient: Total time spent is greater than 50% in coordination of care (as documented) at patient's floor/unit and/or counseling patient: (1) Pulmonary embolism Acute cor pulmonale presence: without acute cor pulmonale Chronicity: unspecified Pulmonary embolism type: unspecified Qualified Code(s): I26.99 - Other pulmonary embolism without acute cor pulmonale
[2019-08-28] MEDS ORDERED: METOPROLOL SUCC 50MG EXT REL TAB PO STA (09:42)
[2019-08-28] MEDS: POLYETHYLENE (MIRALAX) 17 GM PACK PO SCH (09:45)
[2019-08-28] MEDS: WARFARIN SOD 5 MG TAB PO SCH (16:33)
[2019-08-28] MEDS: METOPROLOL TARTRATE 1 MG/ML VIAL IV PRN ×2 (17:10→20:45)
--- NOTE | 2019-08-28 18:11 | Family Medicine Progress Note ---
Date of Service August 28, 2019 Assessment & Plan (1) Pulmonary embolism: 83-year-old male with Parkinson and lumbar stenosis, admitted for PE d/t bilateral DVT. Atrial flutter variable block, previously atrial fibrillation with RVR, new onset, this may be secondary to PE - patient continued to be in atrial flutter with a heart rate around 130 throughout the day - cardiology had discussed doing a MARK followed by cardioversion if no thrombus, if rates is well controlled MARK will not be performed - continuing medical management with Diltiazem 180 mg BID and Metoprolol Tartarate 5 mg IV PRN Acute bilateral pulmonary emboli due to bilateral lower extremity DVT's - CTA w/ findings of: PE - venous doppler scan of bilateral lower extremities found: DVT in bilateral lower extremity - continue to follow INR until therapeutic - continue Warfarin 5 mg w/ a Lovenox bridge at 1.5 mg/kg (140mg) Parkinson disease - continue home Sinemet 25/100 mg - continue home Rivastigmine 4.5 mg BID - continue home Entacapone 200 mg - continue clonazepam QHS Lumbar stenosis - continue Gabapentin Acute respiratory distress, resolving - saturating well on room air - CXR no significant change on 08/24 Possible concern for aspiration - swallow study showed aspiration with thin liquid - made adjustments to diet per speech recs. FEN: continue to monitor electrolytes, diet: regular slippery, thin liquid; avoid dry thick foods. DVT: Lovenox bridge to Warfarin Code: conditional: compression no, airway yes, vent yes, defib. no, IV meds yes (2) Anticoagulant prescribed: (3) Atrial flutter: Supervising Physician Co-Signing Physician Notes Resident Physician Supervision Note: I independently interviewed and examined the patient and verified the devi history and physical, reviewed labs and image studies, discussed the case with the resident Dr. Godwin and agree with the findings and care plan. Subjective I had a discussion with Mr. Miguel and his and daughter this afternoon. We talked about the medical management of his atrial flutter vs. a MARK and cardioversion. and daughter hadn't seen cardiology today, and were going to show up early tomorrow to discuss his atrial flutter and the management of it. They felt that his heart rate was elevated more in the afternoons, and better controlled in the mornings. We also discussed Mr. Miguel getting out of bed and doing exercises in the chair. Review of Systems Constitutional: no fever and no chills Respiratory: no cough denies shortness of breath denies sputum production Cardiovascular: no chest pain and no palpitations Gastrointestinal: no abdominal pain, no nausea and no vomiting Genitourinary: no dysuria, no urinary frequency and no urinary incontinence Neurologic: no headache(s) Physical Exam Constitutional: well developed, well nourished, cooperative and comfortable; no acute distress Respiratory: normal respiratory effort, lungs clear to auscultation Auscultation: + wheezes Cardiovascular: RRR, no murmur, no edema Extremities: no edema Gastrointestinal (Abdomen): normal bowel sounds, soft, nontender, no hepatosplenomegaly Inspection/Auscultation: no abdominal edema Skin: no rashes, warm and dry Neurologic: not confused Motor/Sensory: + tremor Results & Data Vital Signs (Past 12 Hours) Vital Signs Temp Pulse Pulse Resp BP BP Pulse Ox 08/28/19 17:10 131 H 08/28/19 15:32 36.8 C 104 H 19 123/67 96 08/28/19 11:02 36.7 C 129 H 25 H 108/77 97 08/28/19 08:18 131 H 08/28/19 07:12 36.4 C L 130 H 15 109/83 95 PG Care Time/CCT Total # of Minutes Spent Total Time Spent with Patient: Total time spent is greater than 50% in coordination of care (as documented) at patient's floor/unit and/or counseling patient: Resident Activity Tracking Resident Involvement: Resident Care Provided Care Provided: Adult Hospital Medicine (1) Pulmonary embolism Acute cor pulmonale presence: without acute cor pulmonale Chronicity: unspecified Pulmonary embolism type: unspecified Qualified Code(s): I26.99 - Other pulmonary embolism without acute cor pulmonale
--- NOTE | 2019-08-28 19:49 | Family Medicine Progress Note ---
Date of Service August 28, 2019 Assessment & Plan (1) Pulmonary embolism: 83-year-old male with Parkinson and lumbar stenosis, admitted for PE d/t bilateral DVT. Acute bilateral pulmonary emboli due to bilateral lower extremity DVT's - CTA w/ findings of: PE - venous doppler scan of bilateral lower extremities found: DVT in bilateral lower extremity - continue to follow INR until therapeutic - continue Warfarin 5 mg w/ a Lovenox bridge at 1.5 mg/kg (140mg) Atrial flutter 2:1 block, previously atrial fibrillation with RVR, new onset, this may be secondary to PE - cardiology consulted - EKG: atrial flutter w/ variable AV block, LAD - patient continued to revert to atrial flutter with a heart rate around 130 throughout the day - continuing medical management with Diltiazem 180 mg BID and Metoprolol Tartarate 5 mg IV PRN - cardiology discussed doing a MARK followed by cardioversion if no thrombus, if rates is well controlled MARK will not be performed Parkinson disease - continue home Sinemet 25/100 mg - continue home Rivastigmine 4.5 mg BID - continue home Entacapone 200 mg - continue clonazepam QHS Lumbar stenosis - continue Gabapentin Acute respiratory distress, resolving - saturating well on room air - CXR no significant change on 08/24 Possible concern for aspiration - swallow study showed aspiration with thin liquid - made adjustments to diet per speech recs. FEN: continue to monitor electrolytes, diet: regular slippery, thin liquid; avoid dry thick foods. DVT: Lovenox bridge to Warfarin Code: conditional: compression no, airway yes, vent yes, defib. no, IV meds yes (2) Anticoagulant prescribed: (3) Atrial flutter: (4) Acute respiratory failure with hypoxia: - Satting well on room air this morning - no complaints of shortness of breath at this point Physical Exam Constitutional: well developed, well nourished, cooperative and comfortable; no acute distress Respiratory: normal respiratory effort, lungs clear to auscultation Auscultation: + wheezes Cardiovascular: RRR, no murmur, no edema Extremities: no edema Gastrointestinal (Abdomen): normal bowel sounds, soft, nontender, no hepatosplenomegaly Inspection/Auscultation: no abdominal edema Skin: no rashes, warm and dry Neurologic: not confused Motor/Sensory: + tremor Results & Data Vital Signs (Past 12 Hours) Vital Signs Temp Pulse Pulse Resp BP BP Pulse Ox 08/28/19 19:04 36.4 C L 103 H 18 104/72 96 08/28/19 17:10 131 H 08/28/19 15:32 36.8 C 104 H 19 123/67 96 08/28/19 11:02 36.7 C 129 H 25 H 108/77 97 08/28/19 08:18 131 H PG Care Time/CCT Total # of Minutes Spent Total Time Spent with Patient: Total time spent is greater than 50% in coordination of care (as documented) at patient's floor/unit and/or counseling patient: (1) Pulmonary embolism Acute cor pulmonale presence: without acute cor pulmonale Chronicity: unspecified Pulmonary embolism type: unspecified Qualified Code(s): I26.99 - Other pulmonary embolism without acute cor pulmonale
[2019-08-28] MEDS: clonazePAM 0.5 MG TAB PO SCH (20:42)
[2019-08-28] MEDS: ENOXAPARIN 150 MG/ML SYR SQ SCH (20:43)
[2019-08-28] MEDS: GABAPENTIN 400 MG CAP PO SCH (20:44)
[2019-08-29] MEDS: ENTACAPONE 200 MG TAB PO SCH ×6 (02:19→20:50)
[2019-08-29] MEDS: CARBIDOPA/LEVODOPA 25/100MG TAB PO SCH ×6 (02:19→20:50)
[2019-08-29] MEDS: METOPROLOL TARTRATE 1 MG/ML VIAL IV PRN (05:32)
[2019-08-29 06:17] LABS: Hematocrit (blood only) 40.5 % (42-52); Hemoglobin 13.3 g/dL (14.0-18.0); Mean Corpuscular Hemoglobin 30.2 pg (25-34); Mean Corpuscular Hgb Conc 32.8 g/dL (32-36); Mean Corpuscular Volume 91.8 fL (80-100); Mean Platelet Volume 9.9 fL (7.4-10.4); Platelet Count 270 K/uL (130-400); RDW Coefficient of Variation 13.5 % (11.5-14.5); RDW Standard Deviation 44.8 fL (36.4-46.3); Red Blood Count 4.41 M/uL (4.7-6.1); White Blood Count 5.77 K/uL (4.8-10.8)
[2019-08-29 06:25] LABS: INR 1.3 (0.9-1.1); Prothrombin Time 13.2 Seconds (9.0-12.0)
--- NOTE | 2019-08-29 06:58 | Family Medicine Progress Note ---
Date of Service August 29, 2019 Assessment & Plan (1) Pulmonary embolism: 83-year-old male with Parkinson and lumbar stenosis, admitted for PE d/t bilateral DVT. Acute bilateral pulmonary emboli due to bilateral lower extremity DVT's -CTA w/ findings of: Extensive PE (no saddle embolus) -venous doppler scan of bilateral lower extremities found: DVT in bilateral lower extremity -continue lovenox bridge at 1.5 mg/kg (140mg) -increased Warfarin to 7.5mg -continue to follow INR until therapeutic Atrial flutter with variable block block -previously atrial fibrillation with RVR, -EKG: atrial flutter w/ variable AV block, LAD -patient continued to be atrial flutter with a heart rate around 130 throughout the day -cardiology consulted -continuing medical management with Diltiazem 180 mg BID and switch metoprolol to oral dose 50mgs XL daily -Reviewed cardio input 08/29 - likely not a candidate for MARK cardioversion due to concern of RV dysfunction. -to consider MARK to assess RV dysfunction and Pul HTN Parkinson disease -continue home Sinemet 25/100 mg -continue home Rivastigmine 4.5 mg BID -continue home Entacapone 200 mg -continue clonazepam QHS Lumbar stenosis -continue Gabapentin Acute respiratory distress, resolving - saturating well on room air - CXR no significant change on 08/24 Possible concern for aspiration -swallow study showed aspiration with thin liquid Diet: regular slippery, thin liquid; avoid dry thick foods. DVT: Lovenox bridge to Warfarin Code: conditional: compression no, airway yes, vent yes, defib. no, IV meds yes (2) Anticoagulant prescribed: (3) Atrial flutter: Supervising Physician Co-Signing Physician Notes Resident Physician Supervision Note: I independently interviewed and examined the patient and verified the devi history and physical, reviewed labs and image studies, discussed the case with the resident Dr. Mosley and agree with the findings and care plan. Subjective feeling about the same this morning, continuing to know he has a high heart rate despite medications because of the monitor, wants to get up and moving around so he doesn't get weak as he gets ready to get out of the hospital, but knows that the risks with moving excessively are high given the clots that he already has in his legs. Review of Systems Constitutional: + fatigue; no fever and no chills Eyes: no spots in vision and no worsening vision Respiratory: + dyspnea; no cough and no sputum production Cardiovascular: no chest pain, no palpitations, no edema and no calf pain Gastrointestinal: no nausea, no vomiting and no diarrhea/loose stools Genitourinary: no dysuria, no urinary incontinence and no hematuria Neurologic: no localized weakness and no headache(s) Physical Exam Eyes: PERRL, conjunctivae normal, anicteric sclerae Respiratory: normal respiratory effort, + labored breathing and able to speak in complete sentences Cardiovascular: Rate/Rhythm: + tachycardic Heart Sounds: normal S1 and normal S2; no gallop, no murmur and no cardiac rub Extremities: no calf tenderness, no pedal edema, no edema and no varicosities Results & Data Vital Signs (Past 12 Hours) Vital Signs Temp Pulse Pulse Resp BP BP BP 08/29/19 05:32 135 H 114/82 08/29/19 03:57 36.3 C L 129 H 21 114/80 08/28/19 23:41 36.3 C L 128 H 19 99/79 L 08/28/19 20:45 130 H 120/92 08/28/19 19:04 36.4 C L 103 H 18 104/72 Pulse Ox 08/29/19 05:32 08/29/19 03:57 98 08/28/19 23:41 96 08/28/19 20:45 08/28/19 19:04 96 Laboratory Results 08/29/19 08/29/19 08/29/19 Range/Units 05:27 05:27 05:27 WBC 5.77 (4.8-10.8) K/uL RBC 4.41 L (4.7-6.1) M/uL Hgb 13.3 L (14.0-18.0) g/dL Hct 40.5 L (42-52) % MCV 91.8 (80-100) fL MCH 30.2 (25-34) pg MCHC 32.8 (32-36) g/dL RDW Std Deviation 44.8 (36.4-46.3) fL RDW Coeff of Rachelle 13.5 (11.5-14.5) % Plt Count 270 (130-400) K/uL MPV 9.9 (7.4-10.4) fL PT 13.2 H (9.0-12.0) Seconds INR 1.3 H (0.9-1.1) Sodium Pending Potassium Pending Chloride Pending Carbon Dioxide Pending Anion Gap Pending BUN Pending Creatinine Pending Est Cr Clr Drug Dosing Pending Est GFR ( Amer) Pending Est GFR (Non-Af Amer) Pending BUN/Creatinine Ratio Pending Glucose Pending Calcium Pending Medications Administered Current Inpatient Medications Acetaminophen (Tylenol) 650 mg PO Q4 PRN PRN Reason: Fever Or Pain Stop: 09/20/19 17:14 Al Hydrox/Mg Hydrox/Simethicone (Maalox) 15 ml PO Q4H PRN PRN Reason: Dyspepsia Stop: 09/20/19 17:15 Carbidopa/Levodopa (Sinemet 25/100 Mg) 1 tab PO HS PRN PRN Reason: S/S PARKINSONS Stop: 09/20/19 17:14 Carbidopa/Levodopa (Sinemet 25/100 Mg) 1.5 tab PO 0230 [facility] Stop: 09/21/19 02:29 Last Admin: 08/29/19 02:19 Dose: 1.5 tab Documented by: Carbidopa/Levodopa (Sinemet 25/100 Mg) 1.5 tab PO 06,0930,13,1630,20 [facility] Stop: 09/20/19 19:59 Last Admin: 08/29/19 05:34 Dose: 1.5 tab Documented by: Clonazepam (Klonopin) 1.5 mg PO HS [facility] Stop: 09/20/19 20:59 Last Admin: 08/28/19 20:42 Dose: 1.5 mg Documented by: Diltiazem HCl (Cardizem Cd) 180 mg PO BID [facility] Stop: 09/26/19 06:14 Last Admin: 08/28/19 20:42 Dose: 180 mg Documented by: Enoxaparin Sodium (Lovenox) 141 mg SQ HS [facility] Stop: 09/24/19 20:59 Last Admin: 08/28/19 20:43 Dose: 141 mg Documented by: Entacapone (Comtan) 200 mg PO 0230 [facility] Stop: 09/21/19 02:29 Last Admin: 08/29/19 02:19 Dose: 200 mg Documented by: Entacapone (Comtan) 200 mg PO 0600,0930,1300 [facility] Stop: 09/21/19 05:59 Last Admin: 08/29/19 05:32 Dose: 200 mg Documented by: Entacapone (Comtan) 200 mg PO 1630,2000 [facility] Stop: 09/20/19 19:59 Last Admin: 08/28/19 20:41 Dose: 200 mg Documented by: Gabapentin (Neurontin) 400 mg PO HS [facility] Stop: 09/20/19 20:59 Last Admin: 08/28/19 20:44 Dose: 400 mg Documented by: Diltiazem HCl 125 mg/ Dextrose 125 mls @ 0 mls/hr IV .Q0M [facility]; Protocol Stop: 09/23/19 17:59 Last Titration: 08/25/19 10:04 Dose: Infused Documented by: Magnesium Hydroxide (Milk Of Magnesia) 30 ml PO Q12H PRN PRN Reason: Constipation Stop: 09/20/19 17:15 Last Admin: 08/23/19 13:44 Dose: 30 ml Documented by: Metoprolol Tartrate (Lopressor) 5 mg IV Q4H PRN PRN Reason: Tachycardia Stop: 09/26/19 18:46 Last Admin: 08/29/19 05:32 Dose: 5 mg Documented by: Mirabegron (Myrbetriq Er) 25 mg PO QAM [facility] Stop: 09/21/19 08:59 Last Admin: 08/28/19 07:39 Dose: 25 mg Documented by: Multivitamins/Minerals (Multivitamin W/ Minerals Tab) 1 tab PO QAM [facility] Stop: 09/21/19 08:59 Last Admin: 08/28/19 07:39 Dose: 1 tab Documented by: Ondansetron HCl (Zofran) 4 mg IV Q6H PRN PRN Reason: Nausea Stop: 09/20/19 17:15 Polyethylene Glycol (Miralax Powder Packet) 17 gm PO DAILY [facility] Stop: 09/21/19 08:59 Last Admin: 08/28/19 09:45 Dose: 17 gm Documented by: Rivastigmine Tartrate (Exelon) 4.5 mg PO BID [facility] Stop: 09/20/19 20:59 Last Admin: 08/28/19 20:43 Dose: 4.5 mg Documented by: Warfarin Sodium (Coumadin) 5 mg PO DAILY@1600 [facility] Stop: 09/25/19 15:59 Last Admin: 08/28/19 16:33 Dose: 5 mg Documented by: PG Care Time/CCT Total # of Minutes Spent Total Time Spent with Patient: Total time spent is greater than 50% in coordination of care (as documented) at patient's floor/unit and/or counseling patient: Resident Activity Tracking Resident Involvement: Resident Care Provided Care Provided: Adult Hospital Medicine (1) Pulmonary embolism Acute cor pulmonale presence: without acute cor pulmonale Chronicity: unspecified Pulmonary embolism type: unspecified Qualified Code(s): I26.99 - Other pulmonary embolism without acute cor pulmonale
[2019-08-29 07:00] LABS: BUN Creatinine Ratio 21.7 (10-20); Calcium 8.5 mg/dl (8.5-10.1); Creatinine Clr Calc Pharmacy 63.1 ml/min; Est GFR (Non-African American) 67.3; Potassium 3.8 mmol/L (3.5-5.1)
[2019-08-29] MEDS: dilTIAZem HCL 180 MG CAPCR PO SCH ×2 (09:10→21:00)
[2019-08-29] MEDS: CEROVITE ADV FORMULA TAB PO SCH (09:10)
[2019-08-29] MEDS: RIVASTIGMINE TARTRATE 1.5 MG CAP PO SCH ×2 (09:10→21:00)
[2019-08-29] MEDS: MIRABEGRON ER 25 MG TAB PO SCH (09:10)
[2019-08-29] MEDS: POLYETHYLENE (MIRALAX) 17 GM PACK PO SCH (09:11)
[2019-08-29] MEDS ORDERED: METOPROLOL SUCC 50MG EXT REL TAB PO STA (10:00)
--- NOTE | 2019-08-29 12:47 | Cardiology Progress Note ---
Date of Service August 29, 2019 Subjective History is obtained from the . He is more tachycardic overnight with heart rates in the 130s. With an additional dose of metoprolol this morning his heart rate has slowed. He denies any chest pain or chest pressure chest heaviness and denies any palpitations lightheadedness or dizziness. Results & Data Vital Signs (Past 12 Hours) Vital Signs Temp Pulse Pulse Resp BP BP Pulse Ox 08/29/19 11:17 36.6 C 132 H 22 94/70 L 95 08/29/19 09:00 128 H 08/29/19 07:29 36.3 C L 130 H 17 100/76 92 08/29/19 05:32 135 H 114/82 08/29/19 03:57 36.3 C L 129 H 21 114/80 98 He is awake alert and oriented Lungs clear to auscultation bilaterally no rales rhonchi or wheezing heart irregular rate and rhythm no appreciable murmurs or rubs Abdomen soft nontender nondistended positive bowel sounds Extremities no clubbing cyanosis or edema (1) Pulmonary embolism: 83-year-old male with Parkinson and lumbar stenosis, admitted for PE d/t bilateral DVT With saddle embolism I would consider a transesophageal echocardiogram to assess the severity of his RV dysfunction and pulmonary hypertension 2. Atrial flutter variable Conduction previously atrial fibrillation with RVR, new onset, secondary to PE - patient continued to be in atrial flutter with a heart rate around 130 Overnight - I would not recommend MARK cardioversion given the fact the patient has a saddle embolus - Continue with medical management with Diltiazem 180 mg BID and Up titration of his metoprolol Coumadin for goal INR of 2-3 Acute bilateral pulmonary emboli due to bilateral lower extremity DVT's - CTA w/ findings of: PE - venous doppler scan of bilateral lower extremities found: DVT in bilateral lower extremity - continue to follow INR until therapeutic - continue Warfarin 5 mg w/ a Lovenox bridge at 1.5 mg/kg (140mg)
[2019-08-29] MEDS: WARFARIN SOD 7.5 MG TAB PO SCH (15:34)
[2019-08-29] MEDS: GABAPENTIN 400 MG CAP PO SCH (21:00)
[2019-08-29] MEDS: clonazePAM 0.5 MG TAB PO SCH (21:00)
[2019-08-29] MEDS: ENOXAPARIN 150 MG/ML SYR SQ SCH (21:05)
[2019-08-30] MEDS: CARBIDOPA/LEVODOPA 25/100MG TAB PO SCH ×6 (02:02→20:17)
[2019-08-30] MEDS: ENTACAPONE 200 MG TAB PO SCH ×6 (02:02→20:16)
[2019-08-30 06:54] LABS: BUN Creatinine Ratio 21.5 (10-20); Calcium 8.5 mg/dl (8.5-10.1); Creatinine Clr Calc Pharmacy 63.7 ml/min; Est GFR (Non-African American) 68.1; Potassium 3.8 mmol/L (3.5-5.1)
[2019-08-30 06:59] LABS: INR 1.6 (0.9-1.1); Prothrombin Time 15.5 Seconds (9.0-12.0)
[2019-08-30] MEDS: dilTIAZem HCL 180 MG CAPCR PO SCH ×2 (08:00→20:17)
[2019-08-30] MEDS: MIRABEGRON ER 25 MG TAB PO SCH (08:02)
[2019-08-30] MEDS: CEROVITE ADV FORMULA TAB PO SCH (08:02)
[2019-08-30] MEDS: RIVASTIGMINE TARTRATE 1.5 MG CAP PO SCH ×2 (08:02→20:16)
[2019-08-30] MEDS: POLYETHYLENE (MIRALAX) 17 GM PACK PO SCH (08:03)
[2019-08-30] MEDS ORDERED: METOPROLOL SUCC 50MG EXT REL TAB PO SCH (09:00)
[2019-08-30] MEDS ORDERED: AMIODARONE IV BOLUS / DRIP IV STA (10:13)
[2019-08-30] MEDS ORDERED: AMIODARONE / D5W 150 MG/100 ML BAG IV STA (10:13)
--- NOTE | 2019-08-30 10:13 | Cardiology Progress Note ---
Date of Service August 30, 2019 Subjective He is unaware of any palpitations this morning. He denies any fluttering or skips lightheadedness or dizziness. Denies any shortness of breath. He sitting in a chair comfortably. Denies any chest discomfort Results & Data Vital Signs (Past 12 Hours) Vital Signs Temp Pulse Resp BP BP Pulse Ox 08/30/19 07:55 36.7 C 129 H 23 103/91 97 08/30/19 03:40 36.4 C L 128 H 22 99/73 L 93 08/29/19 23:23 36.6 C 129 H 20 99/68 L 95 He is awake alert and oriented Lungs clear to auscultation bilaterally no rales rhonchi or wheezing heart regular but tachycardic no appreciable murmurs or rubs Abdomen soft nontender nondistended positive bowel sounds Extremities no clubbing cyanosis with mild edema (1) Pulmonary embolism: 83-year-old male with Parkinson and lumbar stenosis, admitted for PE d/t bilateral DVT With saddle embolism I would consider a trans thoracic echocardiogram to assess the severity of his RV dysfunction and pulmonary hypertension 2. Atrial flutter variable Conduction previously atrial fibrillation with RVR, new onset, secondary to PE - patient continued to be in atrial flutter with a heart rate around 130 Overnight - I would not recommend MARK cardioversion given the fact the patient has a saddle embolus - Continue with medical management with Diltiazem 180 mg BID and Up titration of his metoprolol Add amiodarone 150 mg IV over 10 minutes and then follow the protocol starting at 1 mg/min for 6 hours and 0.5 mg/min thereafter. Hopefully this will allow him to convert back to sinus rhythm. Coumadin for goal INR of 2-3 Acute bilateral pulmonary emboli due to bilateral lower extremity DVT's - CTA w/ findings of: PE - venous doppler scan of bilateral lower extremities found: DVT in bilateral lower extremity - continue to follow INR until therapeutic - continue Warfarin 5 mg w/ a Lovenox bridge at 1.5 mg/kg (140mg)
[2019-08-30] MEDS ORDERED: AMIODARONE / D5W 360 MG/200 ML BAG IV SCH (10:30)
--- NOTE | 2019-08-30 13:35 | Family Medicine Progress Note ---
Date of Service August 30, 2019 Assessment & Plan (1) Pulmonary embolism: 83-year-old male with Parkinson and lumbar stenosis, admitted for PE d/t bilateral DVT. Acute bilateral pulmonary emboli due to bilateral lower extremity DVT's -venous doppler scan of bilateral lower extremities found: DVT in bilateral lower extremity -continue lovenox bridge at 1.5 mg/kg (140mg) -continue Warfarin 7.5mg, recheck INR in AM Atrial flutter variable block -previously atrial fibrillation with RVR, new onset, 2/2 PE? -cardiology consulted -EKG: atrial flutter w/ variable AV block, LAD -patient reverted to atrial flutter at about 1700 yesterday with a heart rate around 130 throughout the night and into this morning -continuing medical management with Diltiazem 180 mg BID and Metoprolol Tartarate 5 mg IV PRN -Increased Metoprolol succinate to 50mg BID for improvement in rate control -Per cardio Added amiodarone 150 mg IV over 10 minutes and then follow the protocol starting at 1 mg/min for 6 hours and 0.5 mg/min thereafter. Parkinson disease -continue home Sinemet 25/100 mg -continue home Rivastigmine 4.5 mg BID -continue home Entacapone 200 mg -continue clonazepam QHS Lumbar stenosis -continue Gabapentin Acute respiratory distress, resolving - saturating well on room air - CXR no significant change on 08/24 Possible concern for aspiration -swallow study showed aspiration with thin liquid Diet: regular slippery, thin liquid; avoid dry thick foods. DVT: Lovenox bridge to Warfarin Code: conditional: compression no, airway yes, vent yes, defib. no, IV meds yes Supervising Physician Co-Signing Physician Notes Resident Physician Supervision Note: I independently interviewed and examined the patient and verified the devi history and physical, reviewed labs and image studies, discussed the case with the resident Dr. Mosley and agree with the findings and care plan. Subjective feeling about the same this morning, continuing to feel frustrated by the length of the process to get his heart rate under control; up to chair in room with some help, continues to be interested in being physically active in order to not get weaker Review of Systems Constitutional: no fever, no chills and no sweats Eyes: no spots in vision and no worsening vision Respiratory: + dyspnea; no cough and no wheezing Cardiovascular: no chest pain, no orthopnea, no edema and no calf pain Gastrointestinal: no nausea and no vomiting Physical Exam Eyes: PERRL, conjunctivae normal, anicteric sclerae Respiratory: normal respiratory effort, + labored breathing and able to speak in complete sentences Cardiovascular: Rate/Rhythm: + tachycardic Heart Sounds: normal S1 and normal S2; no gallop, no murmur and no cardiac rub Extremities: no calf tenderness, no pedal edema, no edema and no varicosities Results & Data Vital Signs (Past 12 Hours) Vital Signs Temp Pulse Resp BP BP Pulse Ox 08/30/19 12:12 36.5 C 127 H 20 115/83 96 08/30/19 07:55 36.7 C 129 H 23 103/91 97 08/30/19 03:40 36.4 C L 128 H 22 99/73 L 93 Laboratory Results 08/30/19 08/30/19 Range/Units 05:54 05:54 PT 15.5 H (9.0-12.0) Seconds INR 1.6 H (0.9-1.1) Sodium 138 (136-145) mmol/L Potassium 3.8 (3.5-5.1) mmol/L Chloride 105 (98-107) mmol/L Carbon Dioxide 30 (21-32) mmol/L Anion Gap 3.0 (3-11) BUN 22 H (7-18) mg/dl Creatinine 1.02 (0.6-1.4) mg/dl Est Cr Clr Drug Dosing 63.7 ml/min Est GFR ( Amer) 79.0 Est GFR (Non-Af Amer) 68.1 BUN/Creatinine Ratio 21.5 H (10-20) Glucose 96 (70-99) mg/dl Calcium 8.5 (8.5-10.1) mg/dl Medications Administered Current Inpatient Medications Acetaminophen (Tylenol) 650 mg PO Q4 PRN PRN Reason: Fever Or Pain Stop: 09/20/19 17:14 Al Hydrox/Mg Hydrox/Simethicone (Maalox) 15 ml PO Q4H PRN PRN Reason: Dyspepsia Stop: 09/20/19 17:15 Carbidopa/Levodopa (Sinemet 25/100 Mg) 1 tab PO HS PRN PRN Reason: S/S PARKINSONS Stop: 09/20/19 17:14 Carbidopa/Levodopa (Sinemet 25/100 Mg) 1.5 tab PO 0230 NICOLA Stop: 09/21/19 02:29 Last Admin: 08/30/19 02:02 Dose: 1.5 tab Documented by: Carbidopa/Levodopa (Sinemet 25/100 Mg) 1.5 tab PO 06,0930,13,1630,20 NICOLA Stop: 09/20/19 19:59 Last Admin: 08/30/19 12:20 Dose: 1.5 tab Documented by: Clonazepam (Klonopin) 1.5 mg PO HS NICOLA Stop: 09/20/19 20:59 Last Admin: 08/29/19 21:00 Dose: 1.5 mg Documented by: Diltiazem HCl (Cardizem Cd) 180 mg PO BID [facility] Stop: 09/26/19 06:14 Last Admin: 08/30/19 08:00 Dose: 180 mg Documented by: Enoxaparin Sodium (Lovenox) 141 mg SQ HS [facility] Stop: 09/24/19 20:59 Last Admin: 08/29/19 21:05 Dose: 141 mg Documented by: Entacapone (Comtan) 200 mg PO 0230 [facility] Stop: 09/21/19 02:29 Last Admin: 08/30/19 02:02 Dose: 200 mg Documented by: Entacapone (Comtan) 200 mg PO 0600,0930,1300 NICOL[facility] Stop: 09/21/19 05:59 Last Admin: 08/30/19 12:19 Dose: 200 mg Documented by: Entacapone (Comtan) 200 mg PO 1630,2000 [facility] Stop: 09/20/19 19:59 Last Admin: 08/29/19 20:50 Dose: 200 mg Documented by: Gabapentin (Neurontin) 400 mg PO HS [facility] Stop: 09/20/19 20:59 Last Admin: 08/29/19 21:00 Dose: 400 mg Documented by: Diltiazem HCl 125 mg/ Dextrose 125 mls @ 0 mls/hr IV .Q0M [facility]; Protocol Stop: 09/23/19 17:59 Last Titration: 08/25/19 10:04 Dose: Infused Documented by: Amiodarone HCl/Dextrose (Nexterone / D5w) 360 mg in 200 mls @ 33.333 mls/hr IV .Q6H [facility] Stop: 08/30/19 16:29 Last Infusion: 08/30/19 10:57 Dose: 0 mg/min, 0 mls/hr Documented by: Amiodarone HCl/Dextrose (Nexterone / D5w) 360 mg in 200 mls @ 16.667 mls/hr IV .Q12H [facility] Stop: 09/29/19 16:29 Magnesium Hydroxide (Milk Of Magnesia) 30 ml PO Q12H PRN PRN Reason: Constipation Stop: 09/20/19 17:15 Last Admin: 08/23/19 13:44 Dose: 30 ml Documented by: Metoprolol Succinate (Toprol Xl) 50 mg PO BID [facility] Stop: 09/29/19 20:59 Metoprolol Tartrate (Lopressor) 5 mg IV Q4H PRN PRN Reason: Tachycardia Stop: 09/26/19 18:46 Last Admin: 08/29/19 05:32 Dose: 5 mg Documented by: Mirabegron (Myrbetriq Er) 25 mg PO QAM [facility] Stop: 09/21/19 08:59 Last Admin: 08/30/19 08:02 Dose: 25 mg Documented by: Multivitamins/Minerals (Multivitamin W/ Minerals Tab) 1 tab PO QAM [facility] Stop: 09/21/19 08:59 Last Admin: 08/30/19 08:02 Dose: 1 tab Documented by: Ondansetron HCl (Zofran) 4 mg IV Q6H PRN PRN Reason: Nausea Stop: 09/20/19 17:15 Polyethylene Glycol (Miralax Powder Packet) 17 gm PO DAILY [facility] Stop: 09/21/19 08:59 Last Admin: 08/30/19 08:03 Dose: 17 gm Documented by: Rivastigmine Tartrate (Exelon) 4.5 mg PO BID [facility] Stop: 09/20/19 20:59 Last Admin: 08/30/19 08:02 Dose: 4.5 mg Documented by: Warfarin Sodium (Coumadin) 7.5 mg PO DAILY@1600 [facility] Stop: 09/25/19 15:59 Last Admin: 08/29/19 15:34 Dose: 7.5 mg Documented by: PG Care Time/CCT Total # of Minutes Spent Total Time Spent with Patient: Total time spent is greater than 50% in coordination of care (as documented) at patient's floor/unit and/or counseling patient: Resident Activity Tracking Resident Involvement: Resident Care Provided Care Provided: Adult Hospital Medicine (1) Pulmonary embolism Acute cor pulmonale presence: without acute cor pulmonale Chronicity: unspecified Pulmonary embolism type: unspecified Qualified Code(s): I26.99 - Other pulmonary embolism without acute cor pulmonale
[2019-08-30] MEDS: AMIODARONE / D5W 360 MG/200 ML BAG IV SCH ×2 (16:02→23:35)
[2019-08-30] MEDS: WARFARIN SOD 7.5 MG TAB PO SCH (16:02)
[2019-08-30] MEDS: clonazePAM 0.5 MG TAB PO SCH (20:15)
[2019-08-30] MEDS: METOPROLOL SUCC 50MG EXT REL TAB PO SCH (20:16)
[2019-08-30] MEDS: ENOXAPARIN 150 MG/ML SYR SQ SCH (20:17)
[2019-08-30] MEDS: GABAPENTIN 400 MG CAP PO SCH (20:19)
[2019-08-30] MEDS ORDERED: APIXABAN 5 MG TABLET PO SCH (21:00)
[2019-08-31] MEDS: ENTACAPONE 200 MG TAB PO SCH ×5 (03:24→16:52)
[2019-08-31] MEDS: CARBIDOPA/LEVODOPA 25/100MG TAB PO SCH ×5 (03:24→16:52)
[2019-08-31 06:11] LABS: INR 1.9 (0.9-1.1); Prothrombin Time 18.3 Seconds (9.0-12.0)
[2019-08-31 06:40] LABS: BUN Creatinine Ratio 23.7 (10-20); Calcium 8.2 mg/dl (8.5-10.1); Creatinine Clr Calc Pharmacy 72.3 ml/min; Est GFR (African American) 91.9; Est GFR (Non-African American) 79.3; Potassium 3.8 mmol/L (3.5-5.1)
[2019-08-31] MEDS: MIRABEGRON ER 25 MG TAB PO SCH (07:56)
[2019-08-31] MEDS: METOPROLOL SUCC 50MG EXT REL TAB PO SCH (07:56)
[2019-08-31] MEDS: CEROVITE ADV FORMULA TAB PO SCH (07:56)
[2019-08-31] MEDS: RIVASTIGMINE TARTRATE 1.5 MG CAP PO SCH (07:56)
[2019-08-31] MEDS: dilTIAZem HCL 180 MG CAPCR PO SCH (07:56)
[2019-08-31] MEDS: POLYETHYLENE (MIRALAX) 17 GM PACK PO SCH (07:57)
--- NOTE | 2019-08-31 09:35 | Cardiology Progress Note ---
Date of Service August 31, 2019 Assessment & Plan (1) Atrial flutter: At least a good portion of his rhythm is atrial flutter, there are times when I think it is atrial fibrillation but when his heart rate is rapid it is very regular and consistent with atrial flutter with 2-1 AV conduction. With a slow ventricular response of 130 bpm it is often difficult to titrate AV block to control the heart rate, however with a combination of diltiazem and metoprolol he has had periods of good heart rate control. I think we should continue with this strategy. He was started on amiodarone over the weekend however that slowed the atrial flutter rate but he remains to do one with only a slight reduction in overall heart rate. In addition I think it is potentially risky to try to convert the rhythm at this time since he has not been adequately anticoagulated. I am therefore going to discontinue the amiodarone and increase his metoprolol today. He has never demonstrated bradycardia so I do not think we have to be too concerned about making him too slow. (2) Atrial fibrillation with RVR: At least some of his rhythm appears to be atrial fibrillation, there is a twelve-lead electrocardiogram which looks like atrial fibrillation and during atrial fibrillation his rate appears better controlled. This is not unusual. Most of the time I believe he is in atrial flutter. (3) Pulmonary embolism: He presented with a diagnosis of pulmonary emboli, identified on CT scanning, and he had associated shortness of breath. He will need anticoagulation for this as well as his atrial fibrillation. I cannot say whether this was part of his presentation in atrial fibrillation/flutter or whether it is coincidental. He likely should remain on long-term anticoagulation if possible. (4) Anticoagulant prescribed: He was initially on Eliquis, now he is being transitioned to warfarin I believe because of cost. His INR is now close to therapeutic (1.9 today). Subjective He is feeling well today, he has no palpitations, he tells me that he feels as though he always did. No difficulty with bleeding. Physical Exam Physical Exam: Constitutional: Alert, cooperative and in no distress. He is somewhat slow to respond but seems to respond appropriately to questions. HEENT: Unremarkable Neck: No jugular venous distention, carotid pulses are normal and equal bilaterally without bruits. Pulmonary: Clear to auscultation bilaterally. Cardiac: Regular rapid rhythm with no murmur, gallop or rub. Abdomen: Soft, nontender with normal bowel sounds. Extremities: +1 bilateral pretibial edema. Distal pulses intact. Neurologic: No focal findings. Gait is steady. Skin: No rash, ecchymoses or petechiae. Results & Data Vital Signs (Past 12 Hours) Vital Signs Temp Pulse Pulse Resp BP BP Pulse Ox 08/31/19 07:36 36.6 C 116 H 20 109/76 94 08/31/19 03:48 36.5 C 114 H 18 122/90 95 08/31/19 00:00 110 H 08/30/19 23:59 36.3 C L 112 H 16 103/71 95 Diagnostic Findings Telemetry: He remains in atrial flutter, his atrial rate has decreased to about 240 bpm but he is probably 2-1 AV conduction. Occasional periods of relatively slower heart rate, no bradycardia. PG Care Time/CCT Total # of Minutes Spent Total Time Spent with Patient: Total time spent is greater than 50% in coordination of care (as documented) at patient's floor/unit and/or counseling patient: (1) Pulmonary embolism Acute cor pulmonale presence: without acute cor pulmonale Chronicity: unspecified Pulmonary embolism type: unspecified Qualified Code(s): I26.99 - Other pulmonary embolism without acute cor pulmonale
[2019-08-31] MEDS ORDERED: METOPROLOL SUCC 25MG EXT REL TAB PO ONE (09:51)
--- NOTE | 2019-08-31 13:54 | Discharge Summary ---
Date of Service August 31, 2019 Principal Diagnosis Pulmonary embolism Atrial fibrillation and flutter Discharge Exam In general he is awake and alert pleasant no distress. HEENT normal cephalic atraumatic mucous membranes moist. Breathing unlabored no accessory muscle use good effort. Skin shows no rashes no pallor or icterus. Heart rates improving to the 80s and 90s. No focal neuro deficits. Discharge Data Allergies Allergy/AdvReac Type Severity Reaction Status Date / Time simvastatin Allergy Unknown Verified 08/21/19 15:34 Consultations 08/21/19 16:48 ED Decision to Admit Stat 08/23/19 21:47 Consult Case Management - Discharge Planning Routine 08/27/19 06:08 Consult Cardiology Routine Ordered Studies 08/21/19 15:55 CT head/brain wo con Stat 08/21/19 17:19 US venous doppler LE BI Stat 08/25/19 12:45 FL video swallow Routine Hospital Course (1) Pulmonary embolism: 83-year-old male with Parkinson and lumbar stenosis, admitted for PE d/t bilateral DVT. Acute bilateral pulmonary emboli due to bilateral lower extremity DVT's -venous doppler scan of bilateral lower extremities found: DVT in bilateral lower extremity -Was on Lovenox bridge at 1.5 mg/kg (140mg), but now INR is therapeutic so it can be discontinued -continue Warfarin 7.5mg -Opted for warfarin over DOAC due to cost concerns. -INR this afternoon was 2.0, therefore Lovenox can be discontinued this evening -Follow INR closely Atrial flutter variable block -previously atrial fibrillation with RVR, new onset, 2/2 PE? -cardiology consulted -EKG: atrial flutter w/ variable AV block, LAD -Somewhat difficult for rate control, but utterly asymptomatic, and anxious for discharge. Discussed case with cardiology who felt the most optimal route would be escalating beta-blockers, agree. Discussed case with his PCP at [facility] who felt comfortable assuming management of the patient and his current status. Patient very anxious for discharge Parkinson disease -continue home Sinemet 25/100 mg -continue home Rivastigmine 4.5 mg BID -continue home Entacapone 200 mg -continue clonazepam QHS Lumbar stenosis -continue Gabapentin Acute respiratory distress, resolving - saturating well on room air - CXR no significant change on 08/24 Possible concern for aspiration -swallow study showed aspiration with thin liquid Diet: regular slippery, thin liquid; avoid dry thick foods. Total Time Total Time Spent Total Time Spent (In Minutes): <30 Discharge Plan Discharge Items Patient Disposition: Transfer Alf Fac Reason For Visit: PULMONARY EMBOLISM Discharge Diagnosis: pulmonary embolism, new onset afib/flutter Activity: Resume your previous activity Non-emergency contact: Primary Care Provider and Hardboard Press Operator Call non-emergency contact if: you have any medication questions and your symptoms worsen Follow-up/Referrals: Geo Glass [Primary Care Provider] - Diet: Regular Addtl Attending Provider Instructions: pulmonary embolism -doing well clinically, has been on room air, barely symptomatic from this (prolonged duration of inpatient stay was due to difficulties with rate control for fib/flutter - see below) -initially was on heparin --> transition to apixaban, but due to cost considerations, patient opted to have long term acute care registered nurse management wtih coumadin -currently on lovenox 1.5mg/kg SQ HS as bridge, INR today was 1.9 -will check INR prior to discharge as lovenox can be stopped once INR >2 -continue to follow INR closely since new-start on coumadin, then per protocol thereafter atrial fibrillation/flutter -echo fairly unremarkable, TSH normal -main reason for prolonged hospital stay was that his atrial fibrillation changed over to atrial flutter - making rate control much more difficult. now is showing improvement, has essentially been asymptomatic, and appears stable for discharge to SNF setting with ongoing titration of meds by PCP plus/minus ongoing input from Dr Dunn, cardiology, as needed. Pending Studies at Discharge: No Stand-Alone Forms: [facility] Skilled Items Patient informed of condition?: Yes DNR: No Discharge Level of Care: Skilled Communicable Disease: No Discharge Prognosis: Improving Lines: None Urinary Catheter: No Medications and DC Order Prescriptions: New warfarin [Coumadin] 7.5 mg Tablet 7.5 mg PO DAILY@1600 Qty: 30 RF: 0 enoxaparin [Lovenox] 150 mg/mL Syringe 141 mg subcut HS Qty: 1 RF: 0 Continued acetaminophen [Tylenol] 325 mg Tablet 650 mg PO Q4 PRN (Reason: Fever Or Pain) RF: 0 polyethylene glycol 3350 [Miralax] 17 gram Powder In Packet 17 g PO DAILY RF: 0 clonazepam [Klonopin] 0.5 mg tablet 1.5 mg PO HS RF: 0 gabapentin 400 mg Capsule 400 mg PO HS RF: 0 magnesium hydroxide [Milk of Magnesia] 400 mg/5 mL Suspension 30 ml PO Q OTHER DAY PRN (Reason: Constipation) RF: 0 rivastigmine tartrate 4.5 mg capsule 4.5 mg PO BID RF: 0 carbidopa-levodopa 25-100 mg tablet 1 tab PO UD PRN (Reason: S/S PARKINSONS) RF: 0 pztajyuuh-uedjiqwn-lwpkmyognd [Stalevo 150] 37.5-150-200 mg tablet 1 tab PO DAILY RF: 0 yuyevkmsi-kawblzsp-hdwitrdgpv [Stalevo 150] 37.5-150-200 mg tablet 1 tab PO .5XSDAY RF: 0 cholecalciferol (vitamin D3) [Vitamin D3] 2,000 unit Tablet 2,000 unit PO DAILY RF: 0 PreserVision AREDS 7,160-113-100 wydb-yv-cctw Tablet 1 tab PO QAM RF: 0 Myrbetriq 25 mg tablet extended release 24 hr 25 mg PO QAM RF: 0 Discharge Orders: Discharge Order (Routine); Ordered 08/31/19 Ordered By: Jase Cortez Admission Data Admit Date/Time: 08/21/19 17:16 Attending Provider: Jase Cortez Admit Provider: Erkia Hyman Primary Care Provider: Geo Glass Other Providers: Erika Hyman ; Dee Garcia ; Jase Cortez ; Anival Godwin ; Jhonathan Dunn ; Norah Zacairas Other Interventions: Discharge Summary Assessment (RN) Last Done: 08/31/19 15:22 DC Date/Time DO NOT enter until pt leaves facility: 08/31/19 16:52
[2019-08-31 14:31] LABS: Prothrombin Time 19.5 Seconds (9.0-12.0)
[2019-08-31] MEDS: WARFARIN SOD 7.5 MG TAB PO SCH (16:52)
[2019-08-31] MEDS ORDERED: METOPROLOL SUCC 25MG EXT REL TAB PO SCH (21:00)
== END 2019-08-31 16:52 | DRG 299 ==
LOC: ED 14:32 → 2E 17:16 → SUATTDRO 17:16 → 2E 17:46

== ENCOUNTER 2022-06-27 18:08 | Inpatient (IN) ==
[2022-06-27] MEDS ORDERED: SODIUM CHLORIDE 0.9% 1000ML 1,000 ML IV SCH (20:00)
--- NOTE | 2022-06-27 20:20 | XRay Report ---
XR chest 1V portable HISTORY: 86 years-old Male SOB acute shortness of breath COMPARISON: Chest radiographs 12/05/2021 TECHNIQUE: Portable AP view of the chest FINDINGS: The cardiac silhouette is enlarged. Pulmonary vascular congestion. Mild bibasilar opacities. There is no pneumothorax or large pleural effusion. Bones appear grossly intact. Right shoulder arthroplasty. IMPRESSION: 1. Cardiomegaly with pulmonary vascular congestion. 2. Mild bibasilar opacities suggestive of atelectasis versus pneumonitis. ACT 112: Negative or not required by law. The above report was generated using voice recognition software. It may contain grammatical, syntax o r spelling errors. Electronically signed by: Delmer Aleman M.D. 06/27/2022 8:18 PM
[2022-06-27] MEDS ORDERED: PIPERACILLIN/TAZOBACTAM 4.5 GM/120 ML BAG IV ONE (20:24)
[2022-06-27] MEDS ORDERED: SODIUM CHLORIDE 0.9% 1000ML 500 ML IV ONE (20:24)
[2022-06-27 20:37] LABS: Basophils # (auto) 0.04 K/uL (0-0.2); Basophils % (auto) 0.3 %; Eosinophils # (auto) 0.14 K/uL (0-0.50); Eosinophils % (auto) 1.2 %; Hematocrit (blood only) 49.1 % (40.1-51.0); Hemoglobin 16.1 g/dl (14.0-18.0); Immature Granulocytes # (auto) 0.04 K/uL (0.00-0.02); Immature Granulocytes % (auto) 0.3 %; Lymphocytes # (auto) 1.59 K/uL (1.2-3.4); Lymphocytes % (auto) 13.9 %; Mean Corpuscular Hemoglobin 30.8 pg (25.0-34.0); Mean Corpuscular Hgb Conc 32.8 g/dL (32.0-36.0); Mean Corpuscular Volume 93.9 fL (80.0-100.0); Mean Platelet Volume 10.7 fL (9.4-12.4); Monocytes # (auto) 0.65 K/uL (0.24-0.82); Monocytes % (auto) 5.7 %; Neutrophils # (auto) 9.01 K/uL (1.4-6.5); Neutrophils % (auto) 78.6 %; Platelet Count 226 K/uL (130-400); RDW Coefficient of Variation 12.9 % (11.5-14.5); RDW Standard Deviation 44.2 fL (36.4-46.3); Red Blood Count 5.23 M/uL (4.63-6.08); White Blood Count 11.47 K/ul (4.8-10.8)
[2022-06-27 20:51] LABS: Albumin Globulin Ratio 1.4 (0.9-2); Albumin Level 4.2 gm/dl (3.4-5.0); Bilirubin,Total 0.9 mg/dl (0.2-1.0); Calcium 9.1 mg/dl (8.5-10.1); Creatinine Clr Calc Pharmacy 62.6 ml/min; Est GFR (African American) 79.2 ml/min; Est GFR (Non-African American) 68.3 ml/min; Magnesium 1.9 mg/dl (1.7-2.4); Total Protein 7.2 gm/dl (6.0-8.3)
[2022-06-27 20:58] LABS: Troponin I High Sensitivity 9.1 pg/ml (0-20)
[2022-06-27 21:46] LABS: INR 2.4 (0.9-1.1); Partial Thromboplastin Ratio 1.3; Partial Thromboplastin Time 36.9 Seconds (21.0-31.0); Prothrombin Time 24.5 Seconds (9.0-12.0)
[2022-06-27] MEDS ORDERED: PRAMIPEXOLE DIHYDROCHLO 0.5 MG TAB PO STA (23:55)
[2022-06-27] MEDS ORDERED: CARBIDOPA/LEVODOPA 25/100MG TAB PO STA (23:55)
[2022-06-28] MEDS ORDERED: BUMETANIDE 0.5 MG in SYRINGE 0 ML IV STA (00:02)
--- NOTE | 2022-06-28 00:37 | History & Physical Report ---
Date of Service June 27, 2022 Assessment & Plan (1) Hypoxia: Plan: 86yo male with history of Parkinson's Disease, prior PE, atrial fibrillation/flutter on Coumadin therapy with therapeutic INR of 2.4 presenting from [facility] following an acute event. Patient and describe patient waking from sleep with rigors, gasping for air, cyanotic. EMS reports hypoxia to 70% improved with supplemental O2 by NC and Duoneb. In the ER patient is borderline hypoxic - ranging 87% to 91% on room air during my encounter. He does not typically require supplemental O2. He does follow with Pulmonary for ongoing dyspnea on exertion. PFTs were attempted but unsuccessful. Diaphragmatic excursion reportedly normal by Sniff test. Ultimately dyspnea thought to be multifactorial with possible COPD, CHF, VCD and PH contributing. Uncertain regarding today's event. Possible aspiration event. Also to consider volume overload, infection. No respiratory distress at present -Observation to medical, continuous pulse oximetry, aspiration precautions -Check BNP and Procalcitonin to assist with diagnosis of hypoxic event -Check Phos and replete as needed -Will administer Bumex 0.5mg IV now and monitor response then resume home dosing -Zosyn administered in ER. Will hold off on additional antibiotics at this time pending further workup and clinical course -DuoNeb PRN -Supplemental O2 as needed to maintain saturations >92% -Incentive spirometry q2h while awake -Possible COPD - continue Formoterol BID -Repeat CXR in AM to assess for developing infiltrate/PNA (2) Parkinson disease: Plan: Patient with Parkinson's Disease -Continue Carbidopa-Levodopa at home dosage - 25/100 2 tabs QID -Continue Rivastigmine - patient may need to bring med -Continue Entacapone -Turn and position as needed -Bladder scan with straight cath as needed -Assistance with transfers as needed -Aspiration precautions (3) Pulmonary embolism: Plan: History of. Patient on Coumadin with therapeutic INR -Continue Coumadin (4) Restless leg syndrome: Plan: Chronic. Stable -Continue Mirapex (5) Bradycardia: Plan: Patient reports his heart rate is typically 50-60's. Presently 57bpm. No symptoms of dizziness, SOB, chest pain -Continue to monitor -Metoprolol with holding parameters (6) Atrial fibrillation: Plan: Patient presently appears to be in sinus bradycardia -Continue metoprolol with holding parameters. Consider decreasing or discontinuing if bradycardia persists -Continue Digoxin - check level -Continue Coumadin 5mg po daily -Monitor INR History of Present Illness Chief Complaint: hypoxia Primary Care Provider: [facility] Andres Miguel is an 86yo male with history of Atrial fibrillation/flutter on Coumadin anticoagulation with therapeutic INR of 2.4, Parkinson's disease, possible COPD presenting from [facility] following an acute hypoxic event. Patient reports feeling more fatigued over the last several days but otherwise denies cough, SOB, fever or chills. He was sleeping in his chair this afternoon at 17:00 when he woke suddenly with chills and rigors. His states that he appeared very short of breath, gasping for air and became cyanotic in color. EMS was called and patient was transported to [facility]. Per ER triage note - patient had a SpO2 of 70% by EMS. He was placed on supplemental O2 3L NC and given a DuoNeb en route. Upon arrival patient afebrile, HD stable. Saturating well on 3L NC with saturations recorded at 92-96%. Supplemental O2 removed - patient's saturations reported 90% on room air. During my encounter patient remained on room air. Saturations with appropriate waveform ranged 87% - 91%. Patient denies feeling short of breath. Denies chest pain, palpitations, dizziness, nausea, vomiting, diarrhea. No additional complaints at this time. Patient's states that he is largely back to baseline now with exception that he seems to be more tired than usual. Patient does not use supplemental O2 at home. ER course: RAJIV Zheng Allergies Allergy/AdvReac Type Severity Reaction Status Date / Time diltiazem Allergy Severe rash Verified 06/27/22 18:51 simvastatin Allergy Unknown Verified 06/27/22 18:51 Home Medications Medication Instructions Recorded Confirmed Type cholecalciferol (vitamin D3) 50 2,000 unit PO QAM 08/21/19 06/27/22 History mcg (2,000 unit) tablet (Vitamin D3) clonazepam 0.5 mg tablet (Klonopin) 1.5 mg PO HS 08/21/19 06/27/22 History vitamins A,C,N-oabo-wbzlna 2,148 1 tab PO QAM 08/21/19 06/27/22 History mcg-113 mg-45 mg-17.4 mg tablet (PreserVision AREDS) potassium chloride 10 mEq 10 meq PO QAM 09/10/19 06/27/22 History capsule,extended release metoprolol succinate 50 mg 75 mg PO BID 11/03/19 06/27/22 History tablet,extended release 24 hr ferrous sulfate 325 mg (65 mg 325 mg PO QAM 08/04/20 06/27/22 History iron) tablet,delayed release bumetanide 1 mg tablet 1 mg PO QAM 02/23/21 06/27/22 History digoxin 125 mcg (0.125 mg) tablet 125 mcg PO QAM 02/23/21 06/27/22 History lactulose 10 gram/15 mL oral 15 ml PO QAM 02/23/21 06/27/22 History solution pramipexole 0.125 mg tablet 0.125 mg PO BID 02/23/21 06/27/22 History (Mirapex) pramipexole 0.5 mg tablet (Mirapex) 0.5 mg PO HS 02/23/21 06/27/22 History pantoprazole 40 mg tablet,delayed 40 mg PO QAM 04/10/21 06/27/22 History release warfarin 5 mg tablet 5 mg PO DAILY 04/10/21 06/27/22 History safety needles 27 gauge x 1" #4 ea 10/30/21 06/27/22 Rx mecobalamin (vitamin B12) 10,000 1,000 mcg IM MONTHLY 30 days #1 ea 05/08/22 06/27/22 Rx mcg solution for injection formoterol fumarate 20 mcg/2 mL 2 ml inhalation BID #60 mL 06/05/22 06/27/22 Rx solution for nebulization (Perforomist) carbidopa 25 mg-levodopa 100 mg 2 tab PO Q4 06/27/22 06/27/22 History tablet entacapone 200 mg tablet 200 mg PO Q4 06/27/22 06/27/22 History rivastigmine tartrate 4.5 mg 4.5 mg PO BID 06/27/22 06/27/22 History capsule Past Med/Surg History Medical History (Updated 06/28/22 @ 00:30 by Savanah Love DO) Atrial fibrillation with RVR PLANNING CARDIOVERSION 09/24/19 Atrial flutter Back pain BPH (benign prostatic hyperplasia) Constipation Hyperlipidemia Lumbago Neurologic gait dysfunction Parkinson's disease Polyosteoarthritis Restless leg syndrome Sensorineural hearing loss (SNHL) of both ears Spinal stenosis Surgical History H/O knee surgery H/O shoulder surgery History of back surgery History of cataract surgery Family History Father , age 70 of an [place] Cerebral aneurysm Myocardial infarction Denies family history of Colon cancer Ovarian cancer Prostate cancer Breast cancer Social History Smoking Status: Never smoker Second Hand Exposure: No; Hx Alcohol Use: Yes Alcohol type: wine Alcohol Intake Frequency Comment: Less than once per month Hx Substance Use: No Preferred Language: Icelandic Communication Ability: Effective Immigration Judge Required: No Beliefs That Will Affect Care: None Current Living Situation: Spouse Current [facility] Sit[facility] Comment[facility] current occupational status: retired other: Retired psychologist at age 76 Feels Safe at Home: Yes Dental Care, Regularly: Yes Physical Activity Frequency: Daily Seatbelt Use: always Assistive Devices: None Review of Systems Review of Systems: All systems reviewed & are unremarkable except as noted in HPI & below Physical Exam Physical Exam: General: patient with Parkinson's Disease. Slow to respond to questions but is able to answer appropriately. +Dysphonia Skin: warm, dry, intact, no rashes or lesions HEENT: NC/AT, PERRL, EOMI, anicteric sclera, conjunctiva without injection, external ear normal to inspection and nontender, nares patent, dry mucus membranes, dentition intact, no oropharyngeal lesions, neck supple, trachea midline, no LAD, no thyromegaly, no JVD Heart: +S1/S2, regular, bradycardic at 57 bpm, no m/r/g Lungs: adequate respiratory effort, equal air entry bilaterally, patient appears to be gasping for air at times - states that this is normal for him. +crackles bilateral bases, no rhonchi/wheezes Abd: +BS, soft, NT/ND, no masses/organomegaly/ascites Ext: warm, 2+ pulses in UE/LE bilaterally, no clubbing/cyanosis or edema Patient is wheelchair bound Results & Data Results & Data ([facility]) Vital Signs (Past 12 Hours) Vital Signs Temp Pulse Resp BP Pulse Ox O2 Del Method O2 Flow Rate 06/27/22 23:00 64 21 104/61 90 Room Air 06/27/22 22:00 62 24 102/52 L 93 Nasal Cannula 3 06/27/22 21:00 62 23 103/55 L 92 Nasal Cannula 3 06/27/22 20:00 66 110/55 L 96 Nasal Cannula 3 06/27/22 19:45 64 28 H 101/60 95 Nasal Cannula 3 06/27/22 22:36 56 L 19 90 Room Air 06/27/22 19:00 67 23 90/54 L 95 Nasal Cannula 3 06/27/22 18:26 66 22 120/57 L 96 Nasal Cannula 3 06/27/22 19:16 Nasal Cannula 3 06/27/22 18:13 Nasal Cannula 3 06/27/22 18:13 36.6 C 66 13 120/57 L 93 Nasal Cannula 3 Laboratory Results Laboratory Results WBC 11.47 K/ul (4.8-10.8) H 06/27/22 18:34 RBC 5.23 M/uL (4.63-6.08) 06/27/22 18:34 Hgb 16.1 g/dl (14.0-18.0) 06/27/22 18:34 Hct 49.1 % (40.1-51.0) 06/27/22 18:34 MCV 93.9 fL (80.0-100.0) 06/27/22 18:34 MCH 30.8 pg (25.0-34.0) 06/27/22 18:34 MCHC 32.8 g/dL (32.0-36.0) 06/27/22 18:34 RDW Std Deviation 44.2 fL (36.4-46.3) 06/27/22 18:34 RDW Coeff of Rachelle 12.9 % (11.5-14.5) 06/27/22 18:34 Plt Count 226 K/uL (130-400) 06/27/22 18:34 MPV 10.7 fL (9.4-12.4) 06/27/22 18:34 Immature Gran % (Auto) 0.3 % 06/27/22 18:34 Neut % (Auto) 78.6 % 06/27/22 18:34 Lymph % (Auto) 13.9 % 06/27/22 18:34 [place] % (Auto) 5.7 % 06/27/22 18:34 Eos % (Auto) 1.2 % 06/27/22 18:34 Baso % (Auto) 0.3 % 06/27/22 18:34 Neut # (Auto) 9.01 K/uL (1.4-6.5) H 06/27/22 18:34 Lymph # (Auto) 1.59 K/uL (1.2-3.4) 06/27/22 18:34 [place] # (Auto) 0.65 K/uL (0.24-0.82) 06/27/22 18:34 Eos # (Auto) 0.14 K/uL (0-0.50) 06/27/22 18:34 Baso # (Auto) 0.04 K/uL (0-0.2) 06/27/22 18:34 Immature Gran # (Auto) 0.04 K/uL (0.00-0.02) H 06/27/22 18:34 PT 24.5 Seconds (9.0-12.0) H 06/27/22 18:34 INR 2.4 (0.9-1.1) H 06/27/22 18:34 APTT 36.9 Seconds (21.0-31.0) H 06/27/22 18:34 PTT Ratio 1.3 06/27/22 18:34 Sodium 137 mmol/L (136-145) 06/27/22 18:34 Potassium 4.0 mmol/L (3.5-5.1) 06/27/22 18:34 Chloride 101 mmol/L (98-107) 06/27/22 18:34 Carbon Dioxide 32 mmol/L (21-32) 06/27/22 18:34 Anion Gap 4 (3-11) 06/27/22 18:34 BUN 17 mg/dl (6-23) 06/27/22 18:34 Creatinine 1.00 mg/dl (0.6-1.4) 06/27/22 18:34 Est Cr Clr Drug Dosing 62.6 ml/min 06/27/22 18:34 Est GFR ( Amer) 79.2 ml/min 06/27/22 18:34 Est GFR (Non-Af Amer) 68.3 ml/min 06/27/22 18:34 BUN/Creatinine Ratio 17.0 (10-20) 06/27/22 18:34 Glucose 122 mg/dl (70-99(Fasting)) H 06/27/22 18:34 Lactate 1.2 mmol/L (0.4-2.0) 06/27/22 19:57 Calcium 9.1 mg/dl (8.5-10.1) 06/27/22 18:34 Magnesium 1.9 mg/dl (1.7-2.4) 06/27/22 18:34 Total Bilirubin 0.9 mg/dl (0.2-1.0) 06/27/22 18:34 AST 18 U/L (13-39) 06/27/22 18:34 ALT 10 U/L (7-52) 06/27/22 18:34 Alkaline Phosphatase 83 U/L (34-104) 06/27/22 18:34 Troponin I High Sens 9.1 pg/ml (0-20) 06/27/22 18:34 Total Protein 7.2 gm/dl (6.0-8.3) 06/27/22 18:34 Albumin 4.2 gm/dl (3.4-5.0) 06/27/22 18:34 Globulin 3.0 gm/dl (2.5-4.0) 06/27/22 18:34 Albumin/Globulin Ratio 1.4 (0.9-2) 06/27/22 18:34 SARS-CoV-2, RNA, NAAT NEGATIVE (NEGATIVE) 06/27/22 Unknown Impressions Chest X-Ray 06/27/22 19:43 XR chest 1V portable HISTORY: 86 years-old Male SOB acute shortness of breath COMPARISON: Chest radiographs 12/05/2021 TECHNIQUE: Portable AP view of the chest FINDINGS: The cardiac silhouette is enlarged. Pulmonary vascular congestion. Mild bibasilar opacities. There is no pneumothorax or large pleural effusion. Bones appear grossly intact. Right shoulder arthroplasty. IMPRESSION: 1. Cardiomegaly with pulmonary vascular congestion. 2. Mild bibasilar opacities suggestive of atelectasis versus pneumonitis. ACT 112: Negative or not required by law. The above report was generated using voice recognition software. It may contain grammatical, syntax or spelling errors. Electronically signed by: Delmer Aleman M.D. 06/27/2022 8:18 PM ECG Additional Comments: Ordered. Not yet performed Code Status & VTE Plan VTE Prophylaxis Plan VTE Prophylaxis will be ordered: Yes PG Care Time/CCT Total # of Minutes Spent Total Time Spent with Patient: Total time spent is greater than 50% in coordination of care (as documented) at patient's floor/unit and/or counseling patient: Coding Level of Care Code INT OBSERVATION CARE 70M LVL 3 Diagnoses Hypoxia R09.02 Parkinson disease G20 Pulmonary embolism I26.99 Acute cor pulmonale presence: without acute cor pulmonale Chronicity: unspecified Pulmonary embolism type: unspecified Restless leg syndrome G25.81 Bradycardia R00.1 Atrial fibrillation I48.91 (1) Pulmonary embolism Acute cor pulmonale presence: without acute cor pulmonale Chronicity: unspecified Pulmonary embolism type: unspecified Qualified Code(s): I26.99 - Other pulmonary embolism without acute cor pulmonale
[2022-06-28] MEDS ORDERED: ACETAMINOPHEN 325 MG TAB PO PRN (01:05)
[2022-06-28] MEDS ORDERED: ALBUT/IPRATROP 3MG/0.5MG NEB 3 ML VIAL NEB PRN (01:05)
[2022-06-28] MEDS ORDERED: ONDANSETRON INJ 2 MG/ML 2 ML VIAL IV PRN (01:05)
--- NOTE | 2022-06-28 01:55 | Emergency Department Note ---
ED Provider Note CHIEF COMPLAINT: [] HISTORY OF PRESENT ILLNESS: This [] patient presents to the emergency department [] REVIEW OF SYSTEMS: A review of systems was performed with positives and pertinent negatives listed in the history of present illness. 10 systems were reviewed and are otherwise negative. ALLERGIES: see below MEDICATIONS: see below PMH: see below SOCIAL HISTORY: see below DDx: [] PHYSICAL EXAM: Vital signs reviewed. General: Well-appearing, in no significant distress. HEENT: No scleral icterus, PERRLA, neck supple. Atraumatic. Cardiovascular: Regular rate and rhythm, no extra sounds. Pulmonary: Clear to auscultation bilaterally, normal work of breathing. Abdomen: Soft, nontender, nondistended, positive bowel sounds. Musculoskeletal: Atraumatic, no peripheral edema. Neurologic: Patient awake alert and oriented x 3, speech is clear Skin: Warm, dry, no rash EMERGENCY DEPARTMENT COURSE/MDM: [] MONITORING: An order for cardiac monitoring was placed and the patient is noted to be in a [] at [] beats per minute. RADIOLOGY: EKG: DISPOSITION: Past Med/Surg History Medical History (Updated 06/28/22 @ 00:30 by Savanah Love DO) Atrial fibrillation with RVR [facility] 09/24/19 Atrial flutter Back pain BPH (benign prostatic hyperplasia) Constipation Hyperlipidemia Lumbago Neurologic gait dysfunction Parkinson's disease Polyosteoarthritis Restless leg syndrome Sensorineural hearing loss (SNHL) of both ears Spinal stenosis Surgical History H/O knee surgery H/O shoulder surgery History of back surgery History of cataract surgery Family History Father , age 70 of an [place] Cerebral aneurysm Myocardial infarction Denies family history of Colon cancer Ovarian cancer Prostate cancer Breast cancer Social History Smoking Status: Never smoker Second Hand Exposure: No; Hx Alcohol Use: Yes Alcohol type: wine Alcohol Intake Frequency Comment: Less than once per month Hx Substance Use: No Preferred Language: Bahamian Communication Ability: Effective Trash Hauler Required: No Beliefs That Will Affect Care: None Current Living Situation: Spouse Current Living Situation Comment: independent living at [place] current occupational status: retired other: Retired psychologist at age 76 Feels Safe at Home: Yes Dental Care, Regularly: Yes Physical Activity Frequency: Daily Seatbelt Use: always Assistive Devices: None Allergies Allergies Allergy/AdvReac Type Severity Reaction Status Date / Time diltiazem Allergy Severe rash Verified 06/27/22 18:51 simvastatin Allergy Unknown Verified 06/27/22 18:51 Home Meds Home Medications Medication Instructions Recorded Confirmed cholecalciferol (vitamin D3) 50 2,000 unit PO [facility] 08/21/19 06/27/22 mcg (2,000 unit) tablet (Vitamin D3) clonazepam 0.5 mg tablet (Klonopin) 1.5 mg PO 08/21/19 06/27/22 vitamins A,C,O-jzom-mtbitz 2,148 1 tab PO [facility] 08/21/19 06/27/22 mcg-113 mg-45 mg-17.4 mg tablet (PreserVision AREDS) potassium chloride 10 mEq 10 meq PO [facility] 09/10/19 06/27/22 capsule,extended release metoprolol succinate 50 mg 75 mg PO BID 11/03/19 06/27/22 tablet,extended release 24 hr ferrous sulfate 325 mg (65 mg 325 mg PO [facility] 08/04/20 06/27/22 iron) tablet,delayed release bumetanide 1 mg tablet 1 mg PO [facility] 02/23/21 06/27/22 digoxin 125 mcg (0.125 mg) tablet 125 mcg PO [facility] 02/23/21 06/27/22 lactulose 10 gram/15 mL oral 15 ml PO [facility] 02/23/21 06/27/22 solution pramipexole 0.125 mg tablet 0.125 mg PO BID 02/23/21 06/27/22 (Mirapex) pramipexole 0.5 mg tablet (Mirapex) 0.5 mg PO 02/23/21 06/27/22 pantoprazole 40 mg tablet,delayed 40 mg PO QAM 04/10/21 06/27/22 release warfarin 5 mg tablet 5 mg PO DAILY 04/10/21 06/27/22 carbidopa 25 mg-levodopa 100 mg 2 tab PO Q4 06/27/22 06/27/22 tablet entacapone 200 mg tablet 200 mg PO Q4 06/27/22 06/27/22 rivastigmine tartrate 4.5 mg 4.5 mg PO BID 06/27/22 06/27/22 capsule Previous Rx's Medication Instructions Recorded safety needles 27 gauge x 1" #4 ea 10/30/21 mecobalamin (vitamin B12) 10,000 1,000 mcg IM MONTHLY 30 days #1 ea 05/08/22 mcg solution for injection formoterol fumarate 20 mcg/2 mL 2 ml inhalation BID #60 mL 06/05/22 solution for nebulization (Perforomist) Results & Data (ED) Vital Signs Vital Signs - 24 hr 06/27/22 18:13 06/27/22 18:13 06/27/22 19:16 Temperature 36.6 C Temperature Source Oral Pulse Rate 66 Respiratory Rate 13 Respiratory Effort / Characteristics Spontaneous Grunting Non-Labored Respiratory Depth Normal Respiratory Pattern Regular Blood Pressure 120/57 L Blood Pressure Mean 78 Pulse Oximetry 93 Oxygen Delivery Method Nasal Cannula Nasal Cannula Nasal Cannula Oxygen Flow Rate 3 3 3 Sepsis Recent Fever Within 48 Hours No Sepsis New/Unexplained Change in Mental Status No Sepsis Action Taken by Nursing No Action Required 06/27/22 18:26 06/27/22 19:00 06/27/22 19:43 Temperature Temperature Source Pulse Rate 66 67 Respiratory Rate 22 23 Respiratory Effort / Characteristics Non-Labored Respiratory Depth Respiratory Pattern Blood Pressure 120/57 L 90/54 L Blood Pressure Mean 78 66 Pulse Oximetry 96 95 Oxygen Delivery Method Nasal Cannula Nasal Cannula Oxygen Flow Rate 3 3 Sepsis Recent Fever Within 48 Hours Sepsis New/Unexplained Change in Mental Status Sepsis Action Taken by Nursing 06/27/22 22:36 06/27/22 19:45 06/27/22 20:00 Temperature Temperature Source Pulse Rate 56 L 64 66 Respiratory Rate 19 28 H Respiratory Effort / Characteristics Respiratory Depth Respiratory Pattern Blood Pressure 101/60 110/55 L Blood Pressure Mean 73 73 Pulse Oximetry 90 95 96 Oxygen Delivery Method Room Air Nasal Cannula Nasal Cannula Oxygen Flow Rate 3 3 Sepsis Recent Fever Within 48 Hours Sepsis New/Unexplained Change in Mental Status Sepsis Action Taken by Nursing 06/27/22 21:00 06/27/22 22:00 06/27/22 23:00 Temperature Temperature Source Pulse Rate 62 62 64 Respiratory Rate 23 24 21 Respiratory Effort / Characteristics Respiratory Depth Respiratory Pattern Blood Pressure 103/55 L 102/52 L 104/61 Blood Pressure Mean 71 68 75 Pulse Oximetry 92 93 90 Oxygen Delivery Method Nasal Cannula Nasal Cannula Room Air Oxygen Flow Rate 3 3 Sepsis Recent Fever Within 48 Hours Sepsis New/Unexplained Change in Mental Status Sepsis Action Taken by Nursing Laboratory Data Result diagrams: 06/27/22 18:34 06/27/22 18:34 Lab Results 06/27/22 06/27/22 06/27/22 Range/Units 18:34 18:34 18:34 WBC 11.47 H (4.8-10.8) K/ul RBC 5.23 (4.63-6.08) M/uL Hgb 16.1 (14.0-18.0) g/dl Hct 49.1 (40.1-51.0) % MCV 93.9 (80.0-100.0) fL MCH 30.8 (25.0-34.0) pg MCHC 32.8 (32.0-36.0) g/dL RDW Std Deviation 44.2 (36.4-46.3) fL RDW Coeff of Rachelle 12.9 (11.5-14.5) % Plt Count 226 (130-400) K/uL MPV 10.7 (9.4-12.4) fL Immature Gran % (Auto) 0.3 % Neut % (Auto) 78.6 % Lymph % (Auto) 13.9 % Barbour % (Auto) 5.7 % Eos % (Auto) 1.2 % Baso % (Auto) 0.3 % Neut # (Auto) 9.01 H (1.4-6.5) K/uL Lymph # (Auto) 1.59 (1.2-3.4) K/uL Barbour # (Auto) 0.65 (0.24-0.82) K/uL Eos # (Auto) 0.14 (0-0.50) K/uL Baso # (Auto) 0.04 (0-0.2) K/uL Immature Gran # (Auto) 0.04 H (0.00-0.02) K/uL PT 24.5 H (9.0-12.0) Seconds INR 2.4 H (0.9-1.1) APTT 36.9 H (21.0-31.0) Seconds PTT Ratio 1.3 Sodium 137 (136-145) mmol/L Potassium 4.0 (3.5-5.1) mmol/L Chloride 101 (98-107) mmol/L Carbon Dioxide 32 (21-32) mmol/L Anion Gap 4 (3-11) BUN 17 (6-23) mg/dl Creatinine 1.00 (0.6-1.4) mg/dl Est Cr Clr Drug Dosing 62.6 ml/min Est GFR ( Amer) 79.2 ml/min Est GFR (Non-Af Amer) 68.3 ml/min BUN/Creatinine Ratio 17.0 (10-20) Glucose 122 H (70-99(Fasting)) mg/dl Lactate (0.4-2.0) mmol/L Calcium 9.1 (8.5-10.1) mg/dl Phosphorus (2.5-4.9) mg/dl Magnesium 1.9 (1.7-2.4) mg/dl Total Bilirubin 0.9 (0.2-1.0) mg/dl AST 18 (13-39) U/L ALT 10 (7-52) U/L Alkaline Phosphatase 83 (34-104) U/L Troponin I High Sens 9.1 (0-20) pg/ml B-Natriuretic Peptide (0-100) pg/ml Total Protein 7.2 (6.0-8.3) gm/dl Albumin 4.2 (3.4-5.0) gm/dl Globulin 3.0 (2.5-4.0) gm/dl Albumin/Globulin Ratio 1.4 (0.9-2) Procalcitonin (0-0.5) ng/ml 06/27/22 06/27/22 06/27/22 Range/Units 19:57 20:48 20:48 WBC (4.8-10.8) K/ul RBC (4.63-6.08) M/uL Hgb (14.0-18.0) g/dl Hct (40.1-51.0) % MCV (80.0-100.0) fL MCH (25.0-34.0) pg MCHC (32.0-36.0) g/dL RDW Std Deviation (36.4-46.3) fL RDW Coeff of Rachelle (11.5-14.5) % Plt Count (130-400) K/uL MPV (9.4-12.4) fL Immature Gran % (Auto) % Neut % (Auto) % Lymph % (Auto) % Barbour % (Auto) % Eos % (Auto) % Baso % (Auto) % Neut # (Auto) (1.4-6.5) K/uL Lymph # (Auto) (1.2-3.4) K/uL Barbour # (Auto) (0.24-0.82) K/uL Eos # (Auto) (0-0.50) K/uL Baso # (Auto) (0-0.2) K/uL Immature Gran # (Auto) (0.00-0.02) K/uL PT (9.0-12.0) Seconds INR (0.9-1.1) APTT (21.0-31.0) Seconds PTT Ratio Sodium (136-145) mmol/L Potassium (3.5-5.1) mmol/L Chloride (98-107) mmol/L Carbon Dioxide (21-32) mmol/L Anion Gap (3-11) BUN (6-23) mg/dl Creatinine (0.6-1.4) mg/dl Est Cr Clr Drug Dosing ml/min Est GFR ( Amer) ml/min Est GFR (Non-Af Amer) ml/min BUN/Creatinine Ratio (10-20) Glucose (70-99(Fasting)) mg/dl Lactate 1.2 (0.4-2.0) mmol/L Calcium (8.5-10.1) mg/dl Phosphorus 2.2 L (2.5-4.9) mg/dl Magnesium (1.7-2.4) mg/dl Total Bilirubin (0.2-1.0) mg/dl AST (13-39) U/L ALT (7-52) U/L Alkaline Phosphatase (34-104) U/L Troponin I High Sens (0-20) pg/ml B-Natriuretic Peptide 272 H (0-100) pg/ml Total Protein (6.0-8.3) gm/dl Albumin (3.4-5.0) gm/dl Globulin (2.5-4.0) gm/dl Albumin/Globulin Ratio (0.9-2) Procalcitonin (0-0.5) ng/ml 06/27/22 Range/Units 20:48 WBC (4.8-10.8) K/ul RBC (4.63-6.08) M/uL Hgb (14.0-18.0) g/dl Hct (40.1-51.0) % MCV (80.0-100.0) fL MCH (25.0-34.0) pg MCHC (32.0-36.0) g/dL RDW Std Deviation (36.4-46.3) fL RDW Coeff of Rachelle (11.5-14.5) % Plt Count (130-400) K/uL MPV (9.4-12.4) fL Immature Gran % (Auto) % Neut % (Auto) % Lymph % (Auto) % Barbour % (Auto) % Eos % (Auto) % Baso % (Auto) % Neut # (Auto) (1.4-6.5) K/uL Lymph # (Auto) (1.2-3.4) K/uL Barbour # (Auto) (0.24-0.82) K/uL Eos # (Auto) (0-0.50) K/uL Baso # (Auto) (0-0.2) K/uL Immature Gran # (Auto) (0.00-0.02) K/uL PT (9.0-12.0) Seconds INR (0.9-1.1) APTT (21.0-31.0) Seconds PTT Ratio Sodium (136-145) mmol/L Potassium (3.5-5.1) mmol/L Chloride (98-107) mmol/L Carbon Dioxide (21-32) mmol/L Anion Gap (3-11) BUN (6-23) mg/dl Creatinine (0.6-1.4) mg/dl Est Cr Clr Drug Dosing ml/min Est GFR ( Amer) ml/min Est GFR (Non-Af Amer) ml/min BUN/Creatinine Ratio (10-20) Glucose (70-99(Fasting)) mg/dl Lactate (0.4-2.0) mmol/L Calcium (8.5-10.1) mg/dl Phosphorus (2.5-4.9) mg/dl Magnesium (1.7-2.4) mg/dl Total Bilirubin (0.2-1.0) mg/dl AST (13-39) U/L ALT (7-52) U/L Alkaline Phosphatase (34-104) U/L Troponin I High Sens (0-20) pg/ml B-Natriuretic Peptide (0-100) pg/ml Total Protein (6.0-8.3) gm/dl Albumin (3.4-5.0) gm/dl Globulin (2.5-4.0) gm/dl Albumin/Globulin Ratio (0.9-2) Procalcitonin < 0.05 (0-0.5) ng/ml Administered Medications Discontinued Medications Carbidopa/Levodopa (Carbidopa/Levodopa 25/100mg Tab) 2 tab PO NOW STA Stop: 06/27/22 23:56 Last Admin: 06/28/22 00:35 Dose: 2 tab Documented By: LEIGH ANN Sodium Chloride (Nss 1000ml) 1,000 mls @ 125 mls/hr IV .Q8H NICOLA Stop: 07/27/22 19:59 Last Admin: 06/27/22 20:03 Dose: 125 mls/hr Documented By: LEIGH ANN Piperacillin Sod/Tazobactam Sod (Zosyn) 4.5 gm in 120 mls @ 240 mls/hr IV NOW ONE Stop: 06/27/22 20:53 Last Infusion: 06/27/22 21:25 Dose: 0 mls/hr Documented By: LEIGH ANN Admin: 06/27/22 20:55 Dose: 240 mls/hr Documented By: LEIGH ANN Sodium Chloride (Nss 1000ml) 500 mls @ 999 mls/hr IV .Q31M ONE Stop: 06/27/22 20:54 Last Infusion: 06/27/22 21:20 Dose: 0 mls/hr Documented By: Admin: 06/27/22 20:49 Dose: 999 mls/hr Documented By: LEIGH ANN Bumetanide 0.5 mg/ Syringe 2 mls @ 4 mls/min IV ONE STA Stop: 06/28/22 00:03 Last Admin: 06/28/22 00:37 Dose: 4 mls/min Documented By: LEIGH ANN Pramipexole Dihydrochloride (Pramipexole Dihydrochlo 0.5 Mg Tab) 0.5 mg PO NOW STA Stop: 06/27/22 23:56 Last Admin: 06/28/22 00:37 Dose: 0.5 mg Documented By: LEIGH ANN Imaging Data Radiologist's Impression: Chest X-Ray 06/27/22 19:43 XR chest 1V portable HISTORY: 86 years-old Male SOB acute shortness of breath COMPARISON: Chest radiographs 12/05/2021 TECHNIQUE: Portable AP view of the chest FINDINGS: The cardiac silhouette is enlarged. Pulmonary vascular congestion. Mild bibasilar opacities. There is no pneumothorax or large pleural effusion. Bones appear grossly intact. Right shoulder arthroplasty. IMPRESSION: 1. Cardiomegaly with pulmonary vascular congestion. 2. Mild bibasilar opacities suggestive of atelectasis versus pneumonitis. ACT 112: Negative or not required by law. The above report was generated using voice recognition software. It may contain grammatical, syntax or spelling errors. Electronically signed by: Delmer Aleman M.D. 06/27/2022 8:18 PM Discharge Plan Visit Data Chief Complaint: Shortness of Breath/Dyspnea Stated Complaint: ILLNESS, HYPOXIA ED Provider: Lucia Jeter Patient Disposition: Admitted As Inpatient Discharge Instructions Interventions: ED Discharge Assessment Last Done: 06/28/22 01:09
[2022-06-28] MEDS ORDERED: CARBIDOPA/LEVODOPA 25/100MG TAB PO SCH (04:00)
[2022-06-28] MEDS ORDERED: ENTACAPONE 200 MG TAB PO SCH (04:00)
[2022-06-28] MEDS: FORMOTEROL 20 MCG/2 ML VIAL INH SCH ×2 (07:12→20:35)
[2022-06-28 07:52] LABS: Basophils # (auto) 0.01 K/uL (0-0.2); Basophils % (auto) 0.1 %; Hematocrit (blood only) 45.3 % (40.1-51.0); Hemoglobin 15.1 g/dl (14.0-18.0); Immature Granulocytes # (auto) 0.05 K/uL (0.00-0.02); Immature Granulocytes % (auto) 0.4 %; Lymphocytes # (auto) 0.92 K/uL (1.2-3.4); Lymphocytes % (auto) 7.8 %; Mean Corpuscular Hgb Conc 33.3 g/dL (32.0-36.0); Mean Platelet Volume 10.3 fL (9.4-12.4); Monocytes # (auto) 0.36 K/uL (0.24-0.82); Monocytes % (auto) 3.1 %; Neutrophils # (auto) 10.44 K/uL (1.4-6.5); Neutrophils % (auto) 88.6 %; Platelet Count 197 K/uL (130-400); RDW Coefficient of Variation 12.8 % (11.5-14.5); RDW Standard Deviation 43.8 fL (36.4-46.3); Red Blood Count 4.87 M/uL (4.63-6.08); White Blood Count 11.78 K/ul (4.8-10.8)
[2022-06-28 08:01] LABS: INR 2.4 (0.9-1.1); Prothrombin Time 24.4 Seconds (9.0-12.0)
[2022-06-28] MEDS: ENTACAPONE 200 MG TAB PO SCH ×4 (08:01→20:25)
[2022-06-28] MEDS: CARBIDOPA/LEVODOPA 25/100MG TAB PO SCH ×4 (08:01→20:26)
[2022-06-28 08:16] LABS: BUN Creatinine Ratio 20.2 (10-20); Calcium 8.9 mg/dl (8.5-10.1); Creatinine Clr Calc Pharmacy 66.6 ml/min; Est GFR (African American) 85.3 ml/min; Est GFR (Non-African American) 73.6 ml/min; Potassium 4.3 mmol/L (3.5-5.1)
[2022-06-28] MEDS: RIVASTIGMINE TARTRATE 1.5 MG CAP PO SCH ×2 (08:34→21:05)
[2022-06-28] MEDS: BUMETANIDE 1 MG TAB PO SCH (08:34)
[2022-06-28] MEDS: PRAMIPEXOLE DIHYDROCHLO 0.25 MG TAB PO SCH ×2 (08:36→14:18)
[2022-06-28] MEDS: POTASSIUM CHLORIDE 10 MEQ TABCR PO SCH (08:37)
[2022-06-28] MEDS: PANTOprazole 40 MG TAB PO SCH (08:37)
[2022-06-28] MEDS: METOPROLOL SUCC 25MG EXT REL TAB PO SCH ×2 (08:37→21:05)
--- NOTE | 2022-06-28 08:41 | XRay Report ---
XR chest 1V portable HISTORY: Confusion. hypoxia COMPARISON: Chest 06/27/2022. FINDINGS: No pneumothorax. No pleural effusions. The heart remains mildly enlarged. There are low isidro g volumes. Interstitial thickening and hazy bibasilar densities persist. No evidence for pulmonary ed marcello. There is a right shoulder prosthesis. IMPRESSION: 1. No change in the hazy bibasilar airspace opacities which may represent a pneumonitis. 2. Stable cardiomegaly. No evidence for pulmonary edema. ACT 112: Negative or not required by law. Electronically signed by: David Day M.D. 06/28/2022 8:39 AM
[2022-06-28] MEDS ORDERED: AZITHROMYCIN 500 MG in DEXTROSE 5% 250 ML IV ONE (10:00)
[2022-06-28] MEDS ORDERED: cefTRIAXone SODIUM 2,000 MG in DEXTROSE 5% 50 ML IV SCH (10:00)
[2022-06-28] MEDS: WARFARIN SOD 5 MG TAB PO SCH (16:13)
[2022-06-28] MEDS: DIGOXIN 0.125 MG TAB PO SCH (17:20)
--- NOTE | 2022-06-28 17:57 | Electrocardiogram Report ---
Test Reason : Blood Pressure : / mmHG Vent. 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
--- NOTE | 2022-06-28 18:16 | Hospitalist Progress Note ---
Date of Service June 28, 2022 Assessment & Plan (1) Aspiration pneumonia: Plan: 86yo male with history of Parkinson's Disease, prior PE, atrial fibrillation/flutter on Coumadin therapy with therapeutic INR of 2.4 presenting from [facility] following an acute event. Patient and describe patient waking from sleep with rigors, gasping for air, cyanotic. EMS reports hypoxia to 70% improved with supplemental O2 by NC and Duoneb. In the ER patient is borderline hypoxic - ranging 87% to 91% on room air He does not typically require supplemental O2. He does follow with Pulmonary for ongoing dyspnea on exertion. PFTs were attempted but unsuccessful. Cristal phragmatic excursion reportedly normal by Sniff test. Ultimately dyspnea thought to be multifactorial with possible COPD, CHF, VCD and PH contributing. He has known aspiration and works with speech therapy as an outpatient. Given persistent bibasilar opacities suggestive of pneumonitis on chest x-ray and bibasilar crackles along with leukocytosis and chills/rigors at home, suspect this is aspiration pneumonia. Fortunately, his hypoxia is now resolved. Still with bibasilar crackles and mild leukocytosis. Also with coughing episodes BNP only mildly elevated, PCT negative No fevers here BCxs NGTD -Start ceftriaxone and azithromycin, plan to discharge to home likely on Augmentin to complete 7-day course -Continue aspiration precautions, thickened liquids, easy to chew diet -DuoNeb PRN -Supplemental O2 as needed to maintain saturations >92% -Incentive spirometry q2h while awake -Possible COPD - continue Formoterol BID -Follow chest x-ray to resolution as an outpatient in 4 to 6 weeks (2) Hypoxia: Plan: As above, secondary to aspiration pneumonia, now resolved Continue to monitor (3) Parkinson disease: Plan: Patient with Parkinson's Disease -Continue Carbidopa-Levodopa at home dosage - 25/100 2 tabs QID -Continue Rivastigmine - patient may need to bring med -Continue Entacapone -Turn and position as needed -Bladder scan with straight cath as needed -Assistance with transfers as needed -Aspiration precautions (4) Pulmonary embolism: Plan: History of. Patient on Coumadin with therapeutic INR -Continue Coumadin (5) Restless leg syndrome: Plan: Chronic. Stable -Continue Mirapex which may also be for his Parkinson's (6) Bradycardia: Plan: Patient reports his heart rate is typically 50-60's. Presently 57bpm. No symptoms of dizziness, SOB, chest pain -Continue to monitor -Metoprolol with holding parameters (7) Atrial fibrillation: Plan: Patient presently appears to be in sinus bradycardia -Continue metoprolol with holding parameters. Consider decreasing or discontinuing if bradycardia persists -Continue Digoxin -level is acceptable at 0.7 -Continue Coumadin 5mg po daily -Monitor INR in the morning Plan Disposition-continued stay, but likely discharged home tomorrow to [facility] Admission and Anticipated Discharge Date Admission Date: June 28, 2022 Subjective Patient reports some coughing fits but otherwise feeling well. Remains on room air with pulse ox 97%. No chest pains or shortness of breath. No nausea or vomiting. No constipation or diarrhea. He has had 2 video swallows in the past and does work with speech therapy due to known aspiration as an outpatient. Review of Systems Review of Systems: All systems reviewed & are unremarkable except as noted in HPI & below Physical Exam Constitutional: WD/WN, vitals as above Eyes: + anicteric sclerae Neck: trachea midline, no thyromegaly Respiratory: normal respiratory effort; no cough Auscultation: + crackles (Bibasilar); no rhonchi and no wheezes Cardiovascular: RRR, no murmur, no edema Chest (Breasts): Chest: normal inspection of chest Gastrointestinal (Abdomen): normal bowel sounds, soft, nontender, no hepatosplenomegaly Musculoskeletal: Extremities: extremities normal to inspection; no cyanosis and no clubbing Skin: no rashes, warm and dry Neurologic: moves all extremities and awake; no focal motor deficits Psychiatric: A+Ox3, euthymic affect Lymphatic: no lymphedema Results & Data Results & Data ([facility]) Vital Signs (Past 12 Hours) Vital Signs Pulse Pulse Resp BP Pulse Ox Pulse Ox O2 Del Method 06/28/22 17:20 60 06/28/22 12:27 61 20 127/61 97 Room Air 06/28/22 08:41 58 L 16 115/63 95 Room Air 06/28/22 07:00 100 06/28/22 07:12 60 18 92 Room Air O2 Del Method O2 Flow Rate 06/28/22 17:20 06/28/22 12:27 06/28/22 08:41 06/28/22 07:00 Room Air 0 06/28/22 07:12 Laboratory Results 06/28/22 06/28/22 06/28/22 Range/Units 07:33 07:33 07:33 WBC 11.78 H (4.8-10.8) K/ul RBC 4.87 (4.63-6.08) M/uL Hgb 15.1 (14.0-18.0) g/dl Hct 45.3 (40.1-51.0) % MCV 93.0 (80.0-100.0) fL MCH 31.0 (25.0-34.0) pg MCHC 33.3 (32.0-36.0) g/dL RDW Std Deviation 43.8 (36.4-46.3) fL RDW Coeff of Rachelle 12.8 (11.5-14.5) % Plt Count 197 (130-400) K/uL MPV 10.3 (9.4-12.4) fL Immature Gran % (Auto) 0.4 % Neut % (Auto) 88.6 % Lymph % (Auto) 7.8 % [place] % (Auto) 3.1 % Eos % (Auto) 0.0 % Baso % (Auto) 0.1 % Neut # (Auto) 10.44 H (1.4-6.5) K/uL Lymph # (Auto) 0.92 L (1.2-3.4) K/uL [place] # (Auto) 0.36 (0.24-0.82) K/uL Eos # (Auto) 0.00 (0-0.50) K/uL Baso # (Auto) 0.01 (0-0.2) K/uL Immature Gran # (Auto) 0.05 H (0.00-0.02) K/uL PT 24.4 H (9.0-12.0) Seconds INR 2.4 H (0.9-1.1) APTT (21.0-31.0) Seconds PTT Ratio Sodium 137 (136-145) mmol/L Potassium 4.3 (3.5-5.1) mmol/L Chloride 100 (98-107) mmol/L Carbon Dioxide 30 (21-32) mmol/L Anion Gap 7 (3-11) BUN 19 (6-23) mg/dl Creatinine 0.94 (0.6-1.4) mg/dl Est Cr Clr Drug Dosing 66.6 ml/min Est GFR ( Amer) 85.3 ml/min Est GFR (Non-Af Amer) 73.6 ml/min BUN/Creatinine Ratio 20.2 H (10-20) Glucose 143 H (70-99(Fasting)) mg/dl Lactate (0.4-2.0) mmol/L Calcium 8.9 (8.5-10.1) mg/dl Phosphorus (2.5-4.9) mg/dl Magnesium (1.7-2.4) mg/dl Total Bilirubin (0.2-1.0) mg/dl AST (13-39) U/L ALT (7-52) U/L Alkaline Phosphatase (34-104) U/L Troponin I High Sens (0-20) pg/ml B-Natriuretic Peptide (0-100) pg/ml Total Protein (6.0-8.3) gm/dl Albumin (3.4-5.0) gm/dl Globulin (2.5-4.0) gm/dl Albumin/Globulin Ratio (0.9-2) Procalcitonin (0-0.5) ng/ml Digoxin (0.8-2.0) ng/ml SARS-CoV-2, RNA, NAAT (NEGATIVE) 06/28/22 06/27/22 06/27/22 Range/Units 07:33 Unknown 20:48 WBC (4.8-10.8) K/ul RBC (4.63-6.08) M/uL Hgb (14.0-18.0) g/dl Hct (40.1-51.0) % MCV (80.0-100.0) fL MCH (25.0-34.0) pg MCHC (32.0-36.0) g/dL RDW Std Deviation (36.4-46.3) fL RDW Coeff of Rachelle (11.5-14.5) % Plt Count (130-400) K/uL MPV (9.4-12.4) fL Immature Gran % (Auto) % Neut % (Auto) % Lymph % (Auto) % [place] % (Auto) % Eos % (Auto) % Baso % (Auto) % Neut # (Auto) (1.4-6.5) K/uL Lymph # (Auto) (1.2-3.4) K/uL [place] # (Auto) (0.24-0.82) K/uL Eos # (Auto) (0-0.50) K/uL Baso # (Auto) (0-0.2) K/uL Immature Gran # (Auto) (0.00-0.02) K/uL PT (9.0-12.0) Seconds INR (0.9-1.1) APTT (21.0-31.0) Seconds PTT Ratio Sodium (136-145) mmol/L Potassium (3.5-5.1) mmol/L Chloride (98-107) mmol/L Carbon Dioxide (21-32) mmol/L Anion Gap (3-11) BUN (6-23) mg/dl Creatinine (0.6-1.4) mg/dl Est Cr Clr Drug Dosing ml/min Est GFR ( Amer) ml/min Est GFR (Non-Af Amer) ml/min BUN/Creatinine Ratio (10-20) Glucose (70-99(Fasting)) mg/dl Lactate (0.4-2.0) mmol/L Calcium (8.5-10.1) mg/dl Phosphorus (2.5-4.9) mg/dl Magnesium (1.7-2.4) mg/dl Total Bilirubin (0.2-1.0) mg/dl AST (13-39) U/L ALT (7-52) U/L Alkaline Phosphatase (34-104) U/L Troponin I High Sens (0-20) pg/ml B-Natriuretic Peptide (0-100) pg/ml Total Protein (6.0-8.3) gm/dl Albumin (3.4-5.0) gm/dl Globulin (2.5-4.0) gm/dl Albumin/Globulin Ratio (0.9-2) Procalcitonin < 0.05 (0-0.5) ng/ml Digoxin 0.7 L (0.8-2.0) ng/ml SARS-CoV-2, RNA, NAAT NEGATIVE (NEGATIVE) 06/27/22 06/27/22 06/27/22 Range/Units 20:48 20:48 19:57 WBC (4.8-10.8) K/ul RBC (4.63-6.08) M/uL Hgb (14.0-18.0) g/dl Hct (40.1-51.0) % MCV (80.0-100.0) fL MCH (25.0-34.0) pg MCHC (32.0-36.0) g/dL RDW Std Deviation (36.4-46.3) fL RDW Coeff of Rachelle (11.5-14.5) % Plt Count (130-400) K/uL MPV (9.4-12.4) fL Immature Gran % (Auto) % Neut % (Auto) % Lymph % (Auto) % [place] % (Auto) % Eos % (Auto) % Baso % (Auto) % Neut # (Auto) (1.4-6.5) K/uL Lymph # (Auto) (1.2-3.4) K/uL [place] # (Auto) (0.24-0.82) K/uL Eos # (Auto) (0-0.50) K/uL Baso # (Auto) (0-0.2) K/uL Immature Gran # (Auto) (0.00-0.02) K/uL PT (9.0-12.0) Seconds INR (0.9-1.1) APTT (21.0-31.0) Seconds PTT Ratio Sodium (136-145) mmol/L Potassium (3.5-5.1) mmol/L Chloride (98-107) mmol/L Carbon Dioxide (21-32) mmol/L Anion Gap (3-11) BUN (6-23) mg/dl Creatinine (0.6-1.4) mg/dl Est Cr Clr Drug Dosing ml/min Est GFR ( Amer) ml/min Est GFR (Non-Af Amer) ml/min BUN/Creatinine Ratio (10-20) Glucose (70-99(Fasting)) mg/dl Lactate 1.2 (0.4-2.0) mmol/L Calcium (8.5-10.1) mg/dl Phosphorus 2.2 L (2.5-4.9) mg/dl Magnesium (1.7-2.4) mg/dl Total Bilirubin (0.2-1.0) mg/dl AST (13-39) U/L ALT (7-52) U/L Alkaline Phosphatase (34-104) U/L Troponin I High Sens (0-20) pg/ml B-Natriuretic Peptide 272 H (0-100) pg/ml Total Protein (6.0-8.3) gm/dl Albumin (3.4-5.0) gm/dl Globulin (2.5-4.0) gm/dl Albumin/Globulin Ratio (0.9-2) Procalcitonin (0-0.5) ng/ml Digoxin (0.8-2.0) ng/ml SARS-CoV-2, RNA, NAAT (NEGATIVE) 06/27/22 06/27/22 06/27/22 Range/Units 18:34 18:34 18:34 WBC 11.47 H (4.8-10.8) K/ul RBC 5.23 (4.63-6.08) M/uL Hgb 16.1 (14.0-18.0) g/dl Hct 49.1 (40.1-51.0) % MCV 93.9 (80.0-100.0) fL MCH 30.8 (25.0-34.0) pg MCHC 32.8 (32.0-36.0) g/dL RDW Std Deviation 44.2 (36.4-46.3) fL RDW Coeff of Rachelle 12.9 (11.5-14.5) % Plt Count 226 (130-400) K/uL MPV 10.7 (9.4-12.4) fL Immature Gran % (Auto) 0.3 % Neut % (Auto) 78.6 % Lymph % (Auto) 13.9 % [place] % (Auto) 5.7 % Eos % (Auto) 1.2 % Baso % (Auto) 0.3 % Neut # (Auto) 9.01 H (1.4-6.5) K/uL Lymph # (Auto) 1.59 (1.2-3.4) K/uL [place] # (Auto) 0.65 (0.24-0.82) K/uL Eos # (Auto) 0.14 (0-0.50) K/uL Baso # (Auto) 0.04 (0-0.2) K/uL Immature Gran # (Auto) 0.04 H (0.00-0.02) K/uL PT 24.5 H (9.0-12.0) Seconds INR 2.4 H (0.9-1.1) APTT 36.9 H (21.0-31.0) Seconds PTT Ratio 1.3 Sodium 137 (136-145) mmol/L Potassium 4.0 (3.5-5.1) mmol/L Chloride 101 (98-107) mmol/L Carbon Dioxide 32 (21-32) mmol/L Anion Gap 4 (3-11) BUN 17 (6-23) mg/dl Creatinine 1.00 (0.6-1.4) mg/dl Est Cr Clr Drug Dosing 62.6 ml/min Est GFR ( Amer) 79.2 ml/min Est GFR (Non-Af Amer) 68.3 ml/min BUN/Creatinine Ratio 17.0 (10-20) Glucose 122 H (70-99(Fasting)) mg/dl Lactate (0.4-2.0) mmol/L Calcium 9.1 (8.5-10.1) mg/dl Phosphorus (2.5-4.9) mg/dl Magnesium 1.9 (1.7-2.4) mg/dl Total Bilirubin 0.9 (0.2-1.0) mg/dl AST 18 (13-39) U/L ALT 10 (7-52) U/L Alkaline Phosphatase 83 (34-104) U/L Troponin I High Sens 9.1 (0-20) pg/ml B-Natriuretic Peptide (0-100) pg/ml Total Protein 7.2 (6.0-8.3) gm/dl Albumin 4.2 (3.4-5.0) gm/dl Globulin 3.0 (2.5-4.0) gm/dl Albumin/Globulin Ratio 1.4 (0.9-2) Procalcitonin (0-0.5) ng/ml Digoxin (0.8-2.0) ng/ml SARS-CoV-2, RNA, NAAT (NEGATIVE) Diagnostic Findings Chest x-ray image personally reviewed by me and agree with following report: Chest X-Ray 06/27/22 19:43 XR chest 1V portable HISTORY: 86 years-old Male SOB acute shortness of breath COMPARISON: Chest radiographs 12/05/2021 TECHNIQUE: Portable AP view of the chest FINDINGS: The cardiac silhouette is enlarged. Pulmonary vascular congestion. Mild bibasilar opacities. There is no pneumothorax or large pleural effusion. Bones appear grossly intact. Right shoulder arthroplasty. IMPRESSION: 1. Cardiomegaly with pulmonary vascular congestion. 2. Mild bibasilar opacities suggestive of atelectasis versus pneumonitis. ACT 112: Negative or not required by law. The above report was generated using voice recognition software. It may contain grammatical, syntax or spelling errors. Electronically signed by: Delmer Aleman M.D. 06/27/2022 8:18 PM Chest X-Ray 06/28/22 09:00 XR chest 1V portable HISTORY: Confusion. hypoxia COMPARISON: Chest 06/27/2022. FINDINGS: No pneumothorax. No pleural effusions. The heart remains mildly enlarged. There are low lung volumes. Interstitial thickening and hazy bibasilar densities persist. No evidence for pulmonary edema. There is a right shoulder prosthesis. IMPRESSION: 1. No change in the hazy bibasilar airspace opacities which may represent a pneumonitis. 2. Stable cardiomegaly. No evidence for pulmonary edema. ACT 112: Negative or not required by law. Electronically signed by: David Day M.D. 06/28/2022 8:39 AM PG Care Time/CCT Total # of Minutes Spent Total Time Spent with Patient: Total time spent is greater than 50% in coordination of care (as documented) at patient's floor/unit and/or counseling patient: Coding Level of Care Code 86547 Subseq Hosp Care Lvl 2 Diagnoses Aspiration pneumonia J69.0 Hypoxia R09.02 Parkinson disease G20 Pulmonary embolism I26.99 Acute cor pulmonale presence: without acute cor pulmonale Chronicity: unspecified Pulmonary embolism type: unspecified Restless leg syndrome G25.81 Bradycardia R00.1 Atrial fibrillation I48.91 (1) Pulmonary embolism Acute cor pulmonale presence: without acute cor pulmonale Chronicity: unspecified Pulmonary embolism type: unspecified Qualified Code(s): I26.99 - Other pulmonary embolism without acute cor pulmonale
[2022-06-28] MEDS: clonazePAM 0.5 MG TAB PO SCH (21:05)
[2022-06-28] MEDS: PRAMIPEXOLE DIHYDROCHLO 0.5 MG TAB PO SCH (21:08)
[2022-06-28 21:47] LABS: A calco-baum cmplx NotReported Not Detected (NotDetected); Bact fragilis Not Reported Not Detected (NotDetected); C auris Not Reported Not Detected (NotDetected); Calbicans Not Reported Not Detected (NotDetected); Candida glabrata Not Reported Not Detected (NotDetected); Candida krusei Not Reported Not Detected (NotDetected); Cneoformans/gatti Not Reported Not Detected (NotDetected); Cparapsilosis Not Reported Not Detected (NotDetected); Ctropicalis Not Reported Not Detected (NotDetected); E cloacae compx Not Reported Not Detected (NotDetected); Efaecalis Not Reported Not Detected (NotDetected); Efaecium Not Reported Not Detected (NotDetected); Enterobacterales Not Reported Not Detected (NotDetected); Escherichia coli Not Reported Not Detected (NotDetected); H influenzae Not Reported Not Detected (NotDetected); K aerogenes Not Reported Not Detected (NotDetected); Koxytoca Not Reported Not Detected (NotDetected); Kpneumoniae grp Not Reported Not Detected (NotDetected); Lmonocyt Not Reported Not Detected (NotDetected); N meningitidis Not Reported Not Detected (NotDetected); P aeruginosa Not Reported Not Detected (NotDetected); Proteus spp Not Reported Not Detected (NotDetected); Salmonella spp Not Reported Not Detected (NotDetected); Smarcescens Not Reported Not Detected (NotDetected); Staph lugdunensis Not Reported Not Detected (NotDetected); Staph spp. Not Reported Not Detected (NotDetected); Staphaureus Not Reported Not Detected (NotDetected); Staphepi Not Reported Not Detected (NotDetected); Stenmaltophilia Not Reported Not Detected (NotDetected); Strep agal(GrpB) Not Reported Not Detected (NotDetected); Strep pneum Not Reported Not Detected (NotDetected); Strep pyog (GrpA) Not Reported Not Detected (NotDetected)
[2022-06-28 22:03] LABS: Strep spp Not Reported DETECTED (NotDetected); Streptococcus spp DETECTED (NotDetected)
[2022-06-28] MEDS ORDERED: VANCOMYCIN CONSULT ACTIVE PRN (22:16)
[2022-06-28] MEDS ORDERED: VANCOMYCIN HCL 2,000 MG in SODIUM CHLORIDE 0.9% 500 ML IV STA (22:20)
[2022-06-29] MEDS: metroNIDAZOLE 500 MG/100 ML BAG IV SCH ×2 (00:43→07:53)
[2022-06-29] MEDS: ENTACAPONE 200 MG TAB PO SCH ×5 (03:53→20:02)
[2022-06-29] MEDS: CARBIDOPA/LEVODOPA 25/100MG TAB PO SCH ×5 (03:53→20:02)
[2022-06-29] MEDS: FORMOTEROL 20 MCG/2 ML VIAL INH SCH ×2 (07:29→19:42)
[2022-06-29 09:17] LABS: Basophils # (auto) 0.04 K/uL (0-0.2); Basophils % (auto) 0.5 %; Eosinophils # (auto) 0.15 K/uL (0-0.50); Eosinophils % (auto) 1.9 %; Hematocrit (blood only) 41.9 % (40.1-51.0); Hemoglobin 14.1 g/dl (14.0-18.0); Immature Granulocytes # (auto) 0.04 K/uL (0.00-0.02); Immature Granulocytes % (auto) 0.5 %; Lymphocytes # (auto) 1.02 K/uL (1.2-3.4); Lymphocytes % (auto) 12.8 %; Mean Corpuscular Hemoglobin 31.2 pg (25.0-34.0); Mean Corpuscular Hgb Conc 33.7 g/dL (32.0-36.0); Mean Corpuscular Volume 92.7 fL (80.0-100.0); Mean Platelet Volume 10.2 fL (9.4-12.4); Monocytes # (auto) 0.56 K/uL (0.24-0.82); Neutrophils # (auto) 6.18 K/uL (1.4-6.5); Neutrophils % (auto) 77.3 %; Platelet Count 194 K/uL (130-400); RDW Coefficient of Variation 13.2 % (11.5-14.5); RDW Standard Deviation 44.8 fL (36.4-46.3); Red Blood Count 4.52 M/uL (4.63-6.08); White Blood Count 7.99 K/ul (4.8-10.8)
[2022-06-29 09:28] LABS: INR 2.8 (0.9-1.1); Prothrombin Time 28.3 Seconds (9.0-12.0)
[2022-06-29] MEDS: RIVASTIGMINE TARTRATE 1.5 MG CAP PO SCH ×2 (09:35→20:15)
[2022-06-29] MEDS: METOPROLOL SUCC 25MG EXT REL TAB PO SCH ×2 (09:35→20:16)
[2022-06-29] MEDS: POTASSIUM CHLORIDE 10 MEQ TABCR PO SCH (09:36)
[2022-06-29] MEDS: PANTOprazole 40 MG TAB PO SCH (09:36)
[2022-06-29] MEDS: BUMETANIDE 1 MG TAB PO SCH (09:37)
[2022-06-29] MEDS: AZITHROMYCIN 250 MG in DEXTROSE 5% 250 ML IV SCH (09:38)
[2022-06-29 09:39] LABS: BUN Creatinine Ratio 24.5 (10-20); Calcium 8.8 mg/dl (8.5-10.1); Creatinine Clr Calc Pharmacy 63.9 ml/min; Est GFR (African American) 81.2 ml/min; Potassium 3.9 mmol/L (3.5-5.1)
[2022-06-29] MEDS: PRAMIPEXOLE DIHYDROCHLO 0.25 MG TAB PO SCH ×2 (09:46→14:37)
[2022-06-29] MEDS ORDERED: VANCOMYCIN HCL 1,000 MG in SODIUM CHLORIDE 0.9% 250 ML IV SCH (10:00)
--- NOTE | 2022-06-29 11:23 | Hospitalist Progress Note ---
Date of Service June 29, 2022 Assessment & Plan (1) Aspiration pneumonia: Plan: 86yo male with history of Parkinson's Disease, prior PE, atrial fibrillation/flutter on Coumadin therapy with therapeutic INR of 2.4 presenting from [facility] following an acute event. Patient and describe patient waking from sleep with rigors, gasping for air, cyanotic. EMS reports hypoxia to 70% improved with supplemental O2 by NC and Duoneb. In the ER patient is borderline hypoxic - ranging 87% to 91% on room air He does not typically require supplemental O2. He does follow with Pulmonary for ongoing dyspnea on exertion. PFTs were attempted but unsuccessful. Cristal phragmatic excursion reportedly normal by Sniff test. Ultimately dyspnea thought to be multifactorial with possible COPD, CHF, VCD and PH contributing. He has known aspiration and works with speech therapy as an outpatient. Given persistent bibasilar opacities suggestive of pneumonitis on chest x-ray and bibasilar crackles along with leukocytosis and chills/rigors at home, suspect this is aspiration pneumonia. Fortunately, his hypoxia is now resolved. Still with bibasilar crackles and mild leukocytosis. Also with coughing episodes BNP only mildly elevated, PCT negative No fevers here BCxs Now with Strep bacteremia 1/4 bottles-overnight was placed on Vanco,Flagyl, and continued on azithro, however [employer] indicates Strep not group A,B, or Strep pneumo so ok to continue ceftriaxone -restart ceftriaxone and dc Vanco. No need for Flagyl as no evidence of abscess or loculated effusion -continue azithromycin for atypical coverage as is CAP -Continue aspiration precautions, thickened liquids, easy to chew diet -follow final BCxs -check ECHO for vegetation -DuoNeb PRN -Supplemental O2 as needed to maintain saturations >92% -Incentive spirometry q2h while awake -Possible COPD - continue Formoterol BID -Follow chest x-ray to resolution as an outpatient in 4 to 6 weeks (2) Streptococcal bacteremia: Plan: as above follow repeat cxs check ECHO continue ceftriaxone (3) Hypoxia: Plan: As above, secondary to aspiration pneumonia, now resolved Continue to monitor (4) Parkinson disease: Plan: Patient with Parkinson's Disease -Continue Carbidopa-Levodopa at home dosage - 25/100 2 tabs QID -Continue Rivastigmine - patient may need to bring med -Continue Entacapone -Turn and position as needed -Bladder scan with straight cath as needed -Assistance with transfers as needed -Aspiration precautions PT/OT consults placed (5) Pulmonary embolism: Plan: History of. Patient on Coumadin with therapeutic INR -Continue Coumadin (6) Restless leg syndrome: Plan: Chronic. Stable -Continue Mirapex which may also be for his Parkinson's (7) Bradycardia: Plan: Patient reports his heart rate is typically 50-60's. Presently 57bpm. No symptoms of dizziness, SOB, chest pain -Continue to monitor -Metoprolol with holding parameters (8) Atrial fibrillation: Plan: Patient presently appears to be in sinus bradycardia -Continue metoprolol with holding parameters. Consider decreasing or discontinuing if bradycardia persists -Continue Digoxin -level is acceptable at 0.7 -Continue Coumadin 5mg po daily -Monitor INR in the morning Plan Disposition-continued stay, but likely discharged home tomorrow to [facility] with IV abx if sensitivities are resulted Admission and Anticipated Discharge Date Admission Date: June 28, 2022 Subjective Pt feels ok. Is coughing but not bringing up much. Denies SOB over his baseline and denies CP. No BM yet but feels like he might have one soon. Developed bacteremia overnight. Review of Systems Review of Systems: All systems reviewed & are unremarkable except as noted in HPI & below Physical Exam Constitutional: WD/WN, vitals as above Eyes: + anicteric sclerae Neck: trachea midline, no thyromegaly Respiratory: normal respiratory effort; no cough Auscultation: + crackles (Bibasilar); no rhonchi and no wheezes Cardiovascular: Rate/Rhythm: regular rate and regular rhythm Heart Sounds: no murmur Vessels: dorsalis pedis pulses present Extremities: + edema (trace pitting edema left foot and ankle) Chest (Breasts): Chest: normal inspection of chest Gastrointestinal (Abdomen): normal bowel sounds, soft, nontender, no hepatosplenomegaly Musculoskeletal: Extremities: extremities normal to inspection; no cyanosis and no clubbing Skin: no rashes, warm and dry Neurologic: moves all extremities and awake; no focal motor deficits Psychiatric: A+Ox3, euthymic affect Lymphatic: no lymphedema Results & Data Results & Data ([facility]) Vital Signs (Past 12 Hours) Vital Signs Temp Pulse Resp BP Pulse Ox O2 Del Method 06/29/22 08:11 Room Air 06/29/22 09:34 57 L 102/65 06/29/22 07:29 57 L 18 95 Room Air 06/29/22 07:12 36.4 C L 58 L 21 137/73 94 Room Air Laboratory Results 06/29/22 06/29/22 06/29/22 Range/Units 09:04 09:04 09:04 WBC 7.99 (4.8-10.8) K/ul RBC 4.52 L (4.63-6.08) M/uL Hgb 14.1 (14.0-18.0) g/dl Hct 41.9 (40.1-51.0) % MCV 92.7 (80.0-100.0) fL MCH 31.2 (25.0-34.0) pg MCHC 33.7 (32.0-36.0) g/dL RDW Std Deviation 44.8 (36.4-46.3) fL RDW Coeff of Rachelle 13.2 (11.5-14.5) % Plt Count 194 (130-400) K/uL MPV 10.2 (9.4-12.4) fL Immature Gran % (Auto) 0.5 % Neut % (Auto) 77.3 % Lymph % (Auto) 12.8 % [place] % (Auto) 7.0 % Eos % (Auto) 1.9 % Baso % (Auto) 0.5 % Neut # (Auto) 6.18 (1.4-6.5) K/uL Lymph # (Auto) 1.02 L (1.2-3.4) K/uL [place] # (Auto) 0.56 (0.24-0.82) K/uL Eos # (Auto) 0.15 (0-0.50) K/uL Baso # (Auto) 0.04 (0-0.2) K/uL Immature Gran # (Auto) 0.04 H (0.00-0.02) K/uL PT 28.3 H (9.0-12.0) Seconds INR 2.8 H (0.9-1.1) Sodium 138 (136-145) mmol/L Potassium 3.9 (3.5-5.1) mmol/L Chloride 103 (98-107) mmol/L Carbon Dioxide 30 (21-32) mmol/L Anion Gap 5 (3-11) BUN 24 H (6-23) mg/dl Creatinine 0.98 (0.6-1.4) mg/dl Est Cr Clr Drug Dosing 63.9 ml/min Est GFR ( Amer) 81.2 ml/min Est GFR (Non-Af Amer) 70.0 ml/min BUN/Creatinine Ratio 24.5 H (10-20) Glucose 110 H (70-99(Fasting)) mg/dl Calcium 8.8 (8.5-10.1) mg/dl Nasal Screen MRSA (PCR) (Negative) Streptococcus sp PCR (NotDetected) Bld Cult ID Panel PCR (NotDetected) 06/29/22 06/27/22 Range/Units 06:30 19:57 WBC (4.8-10.8) K/ul RBC (4.63-6.08) M/uL Hgb (14.0-18.0) g/dl Hct (40.1-51.0) % MCV (80.0-100.0) fL MCH (25.0-34.0) pg MCHC (32.0-36.0) g/dL RDW Std Deviation (36.4-46.3) fL RDW Coeff of Rachelle (11.5-14.5) % Plt Count (130-400) K/uL MPV (9.4-12.4) fL Immature Gran % (Auto) % Neut % (Auto) % Lymph % (Auto) % [place] % (Auto) % Eos % (Auto) % Baso % (Auto) % Neut # (Auto) (1.4-6.5) K/uL Lymph # (Auto) (1.2-3.4) K/uL [place] # (Auto) (0.24-0.82) K/uL Eos # (Auto) (0-0.50) K/uL Baso # (Auto) (0-0.2) K/uL Immature Gran # (Auto) (0.00-0.02) K/uL PT (9.0-12.0) Seconds INR (0.9-1.1) Sodium (136-145) mmol/L Potassium (3.5-5.1) mmol/L Chloride (98-107) mmol/L Carbon Dioxide (21-32) mmol/L Anion Gap (3-11) BUN (6-23) mg/dl Creatinine (0.6-1.4) mg/dl Est Cr Clr Drug Dosing ml/min Est GFR ( Amer) ml/min Est GFR (Non-Af Amer) ml/min BUN/Creatinine Ratio (10-20) Glucose (70-99(Fasting)) mg/dl Calcium (8.5-10.1) mg/dl Nasal Screen MRSA (PCR) Negative (Negative) Streptococcus sp PCR DETECTED A (NotDetected) Bld Cult ID Panel PCR See PCR Comment (NotDetected) PG Care Time/CCT Total # of Minutes Spent Total Time Spent with Patient: Total time spent is greater than 50% in coordination of care (as documented) at patient's floor/unit and/or counseling patient: Coding Level of Care Code 43864 Subseq Hosp Care Lvl 2 Diagnoses Aspiration pneumonia J69.0 Streptococcal bacteremia R78.81; B95.5 Hypoxia R09.02 Parkinson disease G20 Pulmonary embolism I26.99 Acute cor pulmonale presence: without acute cor pulmonale Chronicity: unspecified Pulmonary embolism type: unspecified Restless leg syndrome G25.81 Bradycardia R00.1 Atrial fibrillation I48.91 (1) Pulmonary embolism Acute cor pulmonale presence: without acute cor pulmonale Chronicity: unspecified Pulmonary embolism type: unspecified Qualified Code(s): I26.99 - Other pulmonary embolism without acute cor pulmonale
[2022-06-29] MEDS: cefTRIAXone SODIUM 2,000 MG in DEXTROSE 5% 50 ML IV SCH (12:15)
[2022-06-29] MEDS: DIGOXIN 0.125 MG TAB PO SCH (16:01)
[2022-06-29] MEDS: WARFARIN SOD 5 MG TAB PO SCH (16:03)
[2022-06-29] MEDS: clonazePAM 0.5 MG TAB PO SCH (20:16)
[2022-06-29] MEDS: PRAMIPEXOLE DIHYDROCHLO 0.5 MG TAB PO SCH (20:16)
--- NOTE | 2022-06-29 22:37 | XCELERA ---
[id number]
[2022-06-30] MEDS: CARBIDOPA/LEVODOPA 25/100MG TAB PO SCH ×3 (03:38→11:47)
[2022-06-30] MEDS: ENTACAPONE 200 MG TAB PO SCH ×3 (03:38→11:46)
[2022-06-30 06:14] LABS: Basophils # (auto) 0.04 K/uL (0-0.2); Basophils % (auto) 0.6 %; Eosinophils # (auto) 0.22 K/uL (0-0.50); Eosinophils % (auto) 3.3 %; Hematocrit (blood only) 40.9 % (40.1-51.0); Hemoglobin 13.8 g/dl (14.0-18.0); Immature Granulocytes # (auto) 0.02 K/uL (0.00-0.02); Immature Granulocytes % (auto) 0.3 %; Lymphocytes # (auto) 1.08 K/uL (1.2-3.4); Lymphocytes % (auto) 16.1 %; Mean Corpuscular Hemoglobin 31.5 pg (25.0-34.0); Mean Corpuscular Hgb Conc 33.7 g/dL (32.0-36.0); Mean Corpuscular Volume 93.4 fL (80.0-100.0); Mean Platelet Volume 10.3 fL (9.4-12.4); Monocytes # (auto) 0.66 K/uL (0.24-0.82); Monocytes % (auto) 9.8 %; Neutrophils # (auto) 4.69 K/uL (1.4-6.5); Neutrophils % (auto) 69.9 %; Platelet Count 197 K/uL (130-400); RDW Coefficient of Variation 13.1 % (11.5-14.5); RDW Standard Deviation 44.6 fL (36.4-46.3); Red Blood Count 4.38 M/uL (4.63-6.08); White Blood Count 6.71 K/ul (4.8-10.8)
[2022-06-30 06:35] LABS: BUN Creatinine Ratio 23.9 (10-20); Calcium 8.5 mg/dl (8.5-10.1); Creatinine Clr Calc Pharmacy 71.1 ml/min; Est GFR (African American) 90.8 ml/min; Est GFR (Non-African American) 78.3 ml/min; Potassium 3.7 mmol/L (3.5-5.1)
[2022-06-30] MEDS: FORMOTEROL 20 MCG/2 ML VIAL INH SCH (07:21)
[2022-06-30] MEDS: cefTRIAXone SODIUM 2,000 MG in DEXTROSE 5% 50 ML IV SCH (08:13)
[2022-06-30] MEDS ORDERED: VANCOMYCIN LEVEL ONE (09:00)
[2022-06-30] MEDS: AZITHROMYCIN 250 MG in DEXTROSE 5% 250 ML IV SCH (09:06)
[2022-06-30] MEDS: PRAMIPEXOLE DIHYDROCHLO 0.25 MG TAB PO SCH ×2 (09:13→14:13)
[2022-06-30] MEDS: RIVASTIGMINE TARTRATE 1.5 MG CAP PO SCH (09:14)
[2022-06-30] MEDS: POTASSIUM CHLORIDE 10 MEQ TABCR PO SCH (09:14)
[2022-06-30] MEDS: PANTOprazole 40 MG TAB PO SCH (09:15)
[2022-06-30] MEDS: METOPROLOL SUCC 25MG EXT REL TAB PO SCH (09:15)
[2022-06-30] MEDS: BUMETANIDE 1 MG TAB PO SCH (09:16)
--- NOTE | 2022-06-30 15:10 | Discharge Summary ---
Date of Service June 30, 2022 Admission HPI Per Admitting Provider Andres Miguel is an 86yo male with history of Atrial fibrillation/flutter on Coumadin anticoagulation with therapeutic INR of 2.4, Parkinson's disease, possible COPD presenting from [facility] following an acute hypoxic event. Patient reports feeling more fatigued over the last several days but otherwise denies cough, SOB, fever or chills. He was sleeping in his chair this afternoon at 17:00 when he woke suddenly with chills and rigors. His states that he appeared very short of breath, gasping for air and became cyanotic in color. EMS was called and patient was transported to [facility]. Per ER triage note - patient had a SpO2 of 70% by EMS. He was placed on supplemental O2 3L NC and given a DuoNeb en route. Upon arrival patient afebrile, HD stable. Saturating well on 3L NC with saturations recorded at 92-96%. Supplemental O2 removed - patient's saturations reported 90% on room air. During my encounter patient remained on room air. Saturations with appropriate waveform ranged 87% - 91%. Patient denies feeling short of breath. Denies chest pain, palpitations, dizziness, nausea, vomiting, diarrhea. No additional complaints at this time. Patient's states that he is largely back to baseline now with exception that he seems to be more tired than usual. Patient does not use supplemental O2 at home. ER course: RAJIV Zheng Principal Diagnosis Aspiration Pneumonia, Acute respiratory failure with hypoxia Discharge Exam Constitutional WD/WN, vitals as above Eyes + anicteric sclerae Neck trachea midline, no thyromegaly Respiratory normal respiratory effort; no cough Auscultation: + crackles (Bibasilar); no rhonchi and no wheezes Cardiovascular RRR, no murmur, no edema Chest (Breasts) Chest: normal inspection of chest Gastrointestinal (Abdomen) normal bowel sounds, soft, nontender, no hepatosplenomegaly Musculoskeletal Extremities: extremities normal to inspection; no cyanosis and no clubbing Skin no rashes, warm and dry Neurologic moves all extremities and awake; no focal motor deficits Psychiatric A+Ox3, euthymic affect Lymphatic no lymphedema Discharge Data Allergies Allergy/AdvReac Type Severity Reaction Status Date / Time diltiazem Allergy Severe rash Verified 07/27/22 18:51 simvastatin Allergy Unknown Verified 06/27/22 18:51 Consultations 06/27/22 23:12 ED Decision to Admit Stat Ordered Studies ECHO Hospital Course (1) Aspiration pneumonia: 86yo male with history of Parkinson's Disease, prior PE, atrial fibrillation/flutter on Coumadin therapy with therapeutic INR of 2.4 presenting from [facility] following an acute event. Patient and describe patient waking from sleep with rigors, gasping for air, cyanotic. EMS reports hypoxia to 70% improved with supplemental O2 by NC and [place]. In the ER patient was borderline hypoxic - ranging 87% to 91% on room air He does not typically require supplemental O2. He does follow with Pulmonary for ongoing dyspnea on exertion. PFTs were attempted but unsuccessful. Diaphragmatic excursion reportedly normal by Sniff test. Ultimately dyspnea thought to be multifactorial with possible COPD, CHF, VCD and PH contributing. He has known aspiration and works with speech therapy as an outpatient. Given persistent bibasilar opacities suggestive of pneumonitis on chest x-ray and bibasilar crackles along with leukocytosis and chills/rigors at home, suspect this is aspiration pneumonia. Fortunately, his hypoxia is now resolved. Still with bibasilar crackles but with resolved leukocytosis. Also with coughing episodes now improved BNP only mildly elevated, PCT negative No fevers here BCxs with Alpha Strep 1/4 bottles--suspect contaminant and not true bacteremia -received ceftriaxone and azithromycin-will finish out 7 day course at home with po cefdinir and azithro x 5 days total -Continue aspiration precautions, thickened liquids, easy to chew diet -follow final BCxs after discharge but repeat cultures NGTD -checked ECHO for vegetation-negative -Follow chest x-ray to resolution as an outpatient in 4 to 6 weeks Stable for dc to home (2) Streptococcal bacteremia: as above contaminant repeat BCxs NGTD (3) Hypoxia: As above, secondary to aspiration pneumonia, now resolved (4) Parkinson disease: Patient with Parkinson's Disease -Continue Carbidopa-Levodopa at home dosage - 25/100 2 tabs QID -Continue Rivastigmine - patient may need to bring med -Continue Entacapone -Turn and position as needed -Assistance with transfers as needed -Aspiration precautions PT/OT consults placed-he is able to return home with 24/7 care and assistance. feels she can handle him at home as they have assist devices, etc. (5) Pulmonary embolism: History of. Patient on Coumadin with therapeutic INR -Continue Coumadin (6) Restless leg syndrome: Chronic. Stable -Continue Mirapex which may also be for his Parkinson's (7) Bradycardia: Patient reports his heart rate is typically 50-60's. Presently 57bpm. No symptoms of dizziness, SOB, chest pain -Continue to monitor -Metoprolol with holding parameters (8) Atrial fibrillation: Patient presently appears to be in sinus bradycardia -Continue metoprolol with holding parameters. Consider decreasing or discontinuing if bradycardia persists -Continue Digoxin -level is acceptable at 0.7 -Continue Coumadin 5mg po daily INR as outpt Plan Disposition-dc to home with home health Total Time Total Time Spent Total Time Spent (In Minutes): 35 min Discharge Plan Discharge Items Patient Disposition: Home - Home Health Services Reason For Visit: HYPOXIC EVENT Discharge Diagnosis: Aspiration Pneumonia, Acute respiratory failure with hypoxia-resolved Activity: Resume your previous activity Non-emergency contact: Primary Care Provider Call non-emergency contact if: you have any medication questions, your symptoms worsen, you have a fever and your temperature is above 101 Follow-up/Referrals: Geo Glass [Primary Care Provider] - (Follow up within 1 week) Diet: Heart Healthy Addtl Attending Provider Instructions: Please finish out the course of antibiotics as prescribed for your pneumonia. It is important for you to practice good oral hygiene after each meal to include brushing, flossing, and mouthwash rinse to prevent buildup of bacteria that can be aspirated. You are no longer requiring supplemental oxygen. Continue to practice precautions from aspiration as directed by your Speech Therapist. Pending Studies at Discharge: Yes (Final blood culture results) Stand-Alone Forms: My [facility] Medications and DC Order Prescriptions: New cefdinir 300 mg capsule 300 mg PO BID Qty: 8 0RF Rx Instructions: Start on AM of 07/01 azithromycin 250 mg tablet 250 mg PO DAILY Qty: 2 0RF Continued mecobalamin (vitamin B12) 10,000 mcg recon soln 1,000 mcg IM MONTHLY 30 Days Qty: 1 5RF formoterol fumarate [Perforomist] 20 mcg/2 mL solution for nebulization 2 ml inhalation BID Qty: 60 2RF metoprolol succinate 50 mg tablet extended release 24 hr 75 mg PO BID ferrous sulfate 325 mg (65 mg iron) tablet,delayed release (DR/EC) 325 mg PO QAM pantoprazole 40 mg tablet,delayed release (DR/EC) 40 mg PO QAM digoxin 125 mcg (0.125 mg) tablet 125 mcg PO QAM bumetanide 1 mg tablet 1 mg PO QAM lactulose 10 gram/15 mL solution 15 ml PO QAM pramipexole [Mirapex] 0.125 mg tablet 0.125 mg PO BID pramipexole [Mirapex] 0.5 mg tablet 0.5 mg PO HS Rx Instructions: administer 2 - 3 hours before bedtime potassium chloride 10 mEq capsule, extended release 10 meq PO QAM (DME) safety needles 27 gauge x 1" needle See Rx Instructions .Route Qty: 4 0RF Rx Instructions: As directed clonazepam [Klonopin] 0.5 mg tablet 1.5 mg PO HS cholecalciferol (vitamin D3) [Vitamin D3] 2,000 unit Tablet 2,000 unit PO QAM PreserVision AREDS [id number] Tablet 1 tab PO QAM warfarin 5 mg tablet 5 mg PO DAILY rivastigmine tartrate 4.5 mg capsule 4.5 mg PO BID entacapone 200 mg tablet 200 mg PO Q4 Rx Instructions: take with sinemet 5 times a day ..give at 000,0400,0800,1200,1600,2000 carbidopa-levodopa 25-100 mg tablet 2 tab PO Q4 Rx Instructions: take with entacapone 5 times a day at 000,0400,0800,1200,1600,2000 Discharge Orders: Discharge Order (Routine); Ordered 06/30/22 Ordered By: Eunice Ries Admission Data Admit Date/Time: 06/28/22 12:23 Attending Provider: Eunice Reis Admit Provider: Eunice Reis Primary Care Provider: Geo Glass Other Providers: Savanah Love Coding Level of Care Code D/C DAY MANAGEMENT >30 MINS Diagnoses Aspiration pneumonia J69.0 Streptococcal bacteremia R78.81; B95.5 Hypoxia R09.02 Parkinson disease G20 Pulmonary embolism I26.99 Acute cor pulmonale presence: without acute cor pulmonale Chronicity: unspecified Pulmonary embolism type: unspecified Restless leg syndrome G25.81 Bradycardia R00.1 Atrial fibrillation I48.91
== END 2022-06-30 15:47 | disposition home health service (06) | DRG 177 ==
LOC: EDINP 18:08 → ED 18:08 → SUATTDRO 23:51 → 3N 06-28 01:09
DX: R78.81 Bacteremia; Z79.01 Long term (current) use of anticoagulants; G20 Parkinson's disease; I48.92 Unspecified atrial flutter; R00.1 Bradycardia, unspecified; E78.5 Hyperlipidemia, unspecified; Z88.8 Allergy status to other drugs, medicaments and biological substances; Z86.711 Personal history of pulmonary embolism; J44.9 Chronic obstructive pulmonary disease, unspecified; J96.01 Acute respiratory failure with hypoxia; J69.0 Pneumonitis due to inhalation of food and vomit; G25.81 Restless legs syndrome; H90.3 Sensorineural hearing loss, bilateral; N40.0 Benign prostatic hyperplasia without lower urinary tract symptoms; I48.91 Unspecified atrial fibrillation